=== PATIENT | male | born 1965 | race Caucasian/White ===

== ENCOUNTER 2020-03-30 16:45 | Outpatient (REF) | payer OTHER, SELFPAY ==
[2020-03-30 17:31] LABS: Influenza A PCR NEGATIVE (Negative); Influenza B PCR NEGATIVE (Negative); Resp Syncy Virus RNA Qual PCR NEGATIVE (Negative); SARS COV2 PCR INHOUSE NEGATIVE (Negative)
== END 2020-03-30 16:46 | disposition home or self-care (01) ==
LOC: HO.LNP 16:45
PROVIDERS: Visit Provider Nurse Practitioner Family
DX: Z20.828 Contact with and (suspected) exposure to other viral communicable diseases (principal); J06.9 Acute upper respiratory infection, unspecified
CPT/HCPCS: 0241U

== ENCOUNTER 2020-06-02 09:46 | Outpatient (REF) | payer OTHER, SELFPAY ==
[2020-06-02 11:50] LABS: Alanine Aminotransferase 20 U/L (0-40); Albumin Level 4.3 g/dL (3.5-5.0); Alkaline Phosphatase 76 U/L (39-117); Anion Gap 13 (12-20); Aspartate Amino Transferase 18 U/L (5-37); Bilirubin Total 1.8 mg/dL (0.0-1.0); Blood Urea Nitrogen 18 mg/dL (9-16); Carbon Dioxide 28 mmol/L (22-29); Chloride 103 mmol/L (96-108); Cholesterol 159 mg/dL; Estimated Glomerular Filt Rate > 60; Glucose Fasting 93 mg/dL (60-99); HDL Cholesterol 53 mg/dL; LDL Cholesterol Calculated 93 mg/dl; Potassium 4.2 mmol/L (3.3-5.1); Sodium 140 mmol/L (135-145); Total Protein 6.5 g/dL (6.5-8.0); Triglycerides 68 mg/dL
[2020-06-02 11:57] LABS: Prostate Specific Antigen Scr 2.87 ng/mL (<0.05-4.0); TSH reflex Free T4 1.08 uIU/mL (0.32-4.0)
== END 2020-06-02 09:47 | disposition home or self-care (01) ==
LOC: HO.HMGCLDS 09:46
PROVIDERS: PCP Nurse Practitioner Family; Visit Provider Nurse Practitioner Family
DX: Z00.00 Encounter for general adult medical examination without abnormal findings (principal); Z12.5 Encounter for screening for malignant neoplasm of prostate
CPT/HCPCS: 36415; 80053; 80061; 84153; 84443

== ENCOUNTER 2020-09-03 16:16 | Outpatient (REF) | payer OTHER, SELFPAY ==
--- NOTE | ~2020-09-03 | MR_ITS ---
EXAMINATION: MR SHOULDER WITHOUT CONTRAST, RIGHT CLINICAL INFORMATION: Right shoulder popped. No areas. Weakness. COMPARISON: None. TECHNIQUE: MRI of the shoulder without contrast was performed on a high-field scanner. FINDINGS: ROTATOR CUFF: Minimal subscapularis tendinosis at the insertion of the lesser tuberosity and supraspinatus tendinosis of the greater tuberosity insertion. No rotator cuff tears. No muscle atrophy or fatty infiltration. BICEPS: Normal. CORACOACROMIAL ARCH: The undersurface of the acromion is minimally curved with no subacromial spur. Mild acromioclavicular osteoarthritis. LABRUM/CAPSULE: Normal. GLENOHUMERAL JOINT/MARROW: There is a focal multilobular focus of near fluid signal intensity along the posterior cortex of the humeral head measuring 1.3 x 0.7 x 1.1 cm. This may correspond to a enchondroma or focus of subcortical cystic change. Overlying cortex is intact without appreciable scalloping. No aggressive features. No surrounding marrow edema signal. Bone marrow signal is otherwise normal. Articular cartilage is well preserved. MR/MR shoulder RT wo con IMPRESSION: 1. Minimal subscapularis and supraspinatus tendinosis. No tears. 2. A 1.3 cm subcortical lesion at the humeral head posteriorly which may correspond to a low-grade chondroid lesion or, alternatively, subcortical cystic change. There are no aggressive features and an enchondroma is favored. Bones are otherwise normal in appearance.
== END 2020-09-03 16:17 | disposition home or self-care (01) ==
LOC: HO.MRI 16:16
PROVIDERS: PCP Nurse Practitioner Family; Visit Provider Orthopaedic Surgery
DX: M75.41 Impingement syndrome of right shoulder (principal)
CPT/HCPCS: 73221

== ENCOUNTER 2021-01-10 13:55 | Outpatient (REF) | payer OTHER, SELFPAY | END 2021-01-10 13:56 | disposition home or self-care (01) | LOC: HO.LNP 13:55 | PROVIDERS: Visit Provider Physician Assistant | DX: Z20.822 Contact with and (suspected) exposure to COVID-19 (principal) | CPT/HCPCS: U0003; U0005 ==

== ENCOUNTER 2021-06-23 09:34 | Outpatient (REF) | payer OTHER, SELFPAY ==
[2021-06-23 12:13] LABS: Alanine Aminotransferase 18 U/L (0-40); Albumin Level 4.2 g/dL (3.5-5.0); Alkaline Phosphatase 60 U/L (39-117); Anion Gap 13 (12-20); Aspartate Amino Transferase 16 U/L (5-37); Bilirubin Total 1.5 mg/dL (0.0-1.0); Blood Urea Nitrogen 21 mg/dL (9-16); Calcium 9.3 mg/dL (8.4-10.2); Carbon Dioxide 25 mmol/L (22-29); Chloride 105 mmol/L (96-108); Cholesterol 155 mg/dL; Estimated Glomerular Filt Rate > 60; Glucose Fasting 96 mg/dL (60-99); HDL Cholesterol 52 mg/dL; LDL Cholesterol Calculated 90 mg/dl; Sodium 138 mmol/L (135-145); Total Protein 6.6 g/dL (6.5-8.0); Triglycerides 69 mg/dL
[2021-06-23 12:30] LABS: Prostate Specific Antigen Scr 4.53 ng/mL (<0.05-4.0)
[2021-06-23 13:47] LABS: Appearance Urine CLOUDY; Color Urine YELLOW; Glucose Urine UA NEG (NEG); Leukocyte Esterase Urine NEG (NEG); Nitrite Urine NEG (NEG); Specific Gravity - Urine 1.025 (1.005-1.025); Urine Blood NEG (NEG); Urine Ketones NEG (NEG); Urine Protein NEG (NEG-TRACE)
== END 2021-06-23 09:35 | disposition home or self-care (01) ==
LOC: HO.HMGCLDS 09:34
PROVIDERS: PCP Nurse Practitioner Family; Visit Provider Nurse Practitioner Family
DX: Z00.00 Encounter for general adult medical examination without abnormal findings (principal); Z12.5 Encounter for screening for malignant neoplasm of prostate
CPT/HCPCS: 36415; 80053; 80061; 81003; 84153; 84443

== ENCOUNTER → 2021-08-10 12:56 | Outpatient (BNVA) | payer OTHER, SELFPAY | PROVIDERS: PCP Nurse Practitioner Family; Visit Provider Urology | DX: Z13.89 Encounter for screening for other disorder (principal) ==

== ENCOUNTER 2021-08-11 14:04 | Outpatient (REF) | payer OTHER, SELFPAY ==
[2021-08-11 16:54] LABS: PSA,Total (Free>4and<10) 3.13 ng/mL (0.00-4.00)
== END 2021-08-11 14:05 | disposition home or self-care (01) ==
LOC: HO.HMGCLDS 14:04
PROVIDERS: PCP Nurse Practitioner Family; Visit Provider Urology
DX: N40.1 Benign prostatic hyperplasia with lower urinary tract symptoms (principal); N13.8 Other obstructive and reflux uropathy; R97.20 Elevated prostate specific antigen [PSA]; Z12.5 Encounter for screening for malignant neoplasm of prostate
CPT/HCPCS: 36415; 84153

== ENCOUNTER → 2021-08-25 08:19 | Outpatient (BNVA) | payer OTHER, SELFPAY | PROVIDERS: PCP Nurse Practitioner Family; Visit Provider Urology | DX: R97.20 Elevated prostate specific antigen [PSA] (principal) ==

== ENCOUNTER 2022-05-16 15:30 | Outpatient (REF) | payer OTHER, SELFPAY ==
[2022-05-16 16:21] LABS: Influenza A PCR NEGATIVE (Negative); Influenza B PCR NEGATIVE (Negative); Resp Syncy Virus RNA Qual PCR NEGATIVE (Negative); SARS COV2 PCR INHOUSE NEGATIVE (Negative)
== END 2022-05-16 15:31 | disposition home or self-care (01) ==
LOC: HO.LNP 15:30
PROVIDERS: Visit Provider Internal Medicine
DX: R09.89 Other specified symptoms and signs involving the circulatory and respiratory systems (principal); Z20.822 Contact with and (suspected) exposure to COVID-19
CPT/HCPCS: 0241U

== ENCOUNTER 2022-07-28 12:32 | Emergency (ER) | payer OTHER, SELFPAY ==
--- NOTE | ~2022-07-28 | CT_ITS ---
EXAMINATION: CT ANGIOGRAM OF THE CHEST WITH AND WITHOUT CONTRAST (CT PULMONARY ANGIOGRAM FOR PE) CLINICAL INFORMATION: Reason for Exam chest pain radiating into the back COMPARISON: None available. TECHNIQUE: Prior to contrast administration, noncontrast localization images were obtained. Subsequently, multidetector volumetric imaging was performed from the thoracic inlet to below the diaphragms following the administration of 65 mL Omnipaque 350 intravenous contrast. No contrast reaction reported Sagittal, coronal, and MIP oblique sagittal reformatted images were obtained on the CT workstation, uploaded to PACS, and reviewed. This CT examination was performed using dose optimization techniques as appropriate, variously including the following: *Automated exposure control *Adjustment of mA and/or kV according to patient size (this includes techniques or standardized protocols for targeted exams where dose is matched to indication/reason for exam; i.e. extremities or head) *Use of iterative reconstruction technique Total exam dose-length product 271 mGy-cm FINDINGS: QUALITY OF STUDY/CONTRAST BOLUS: Satisfactory. PULMONARY ARTERIES: No pulmonary emboli. THORACIC AORTA: No aneurysm. LUNG: No focal consolidation, nodules or masses. There is subsegmental atelectasis left anterior lung base. PLEURA: No pleural effusion or pneumothorax. MEDIASTINUM: Normal heart size. No pericardial effusion. No hilar or mediastinal lymphadenopathy. No evidence of septal bowing or right heart strain. CORONARY ARTERY CALCIFICATION: None visualized on this study. CHEST WALL/AXILLA: No axillary or internal mammary lymphadenopathy. OSSEOUS STRUCTURES: No acute or suspicious osseous abnormality. UPPER ABDOMEN: Question wall thickening of the stomach versus underdistention.. No reflux of contrast into the hepatic veins to suggest elevated right heart pressures. CT/CT angio chest PE protocol IMPRESSION: No evidence of pulmonary embolism. VTE: negative
--- NOTE | 2022-07-28 12:45 | ECG_ITS ---
Test Reason : CP Blood Pressure : / mmHG Vent. Rate : 077 BPM Atrial Rate : 077 BPM P-R Int : 176 ms QRS Dur : 144 ms QT Int : 418 ms P-R-T Axes : 049 084 008 degrees QTc Int : 473 ms Normal sinus rhythm Non-specific intra-ventricular conduction block Abnormal ECG When compared with ECG of 24-NOV-2010 17:35, QRS duration has increased QT has lengthened Referred By: Silvia Cunningham Electronically Signed By:LISA RAMIRES MD
[2022-07-28 13:11] VITALS: BP 169/95; PULSE 81; RESP 18; TEMP 36.9; O2SAT 98; BMI 28.5
--- NOTE | 2022-07-28 13:12 | ED_ITS ---
HPI - General Adult General Chief complaint: Chest Pain <ADRIANNA Marte - Last Filed: 07/28/22 13:13> Stated complaint: Chest pain sent by walk in <ADRIANNA Marte - Last Filed: 07/28/22 13:13> Time Seen by Provider: 07/28/22 13:22 <ADRIANNA Marte - Last Filed: 07/28/22 13:13> Source: patient <ADRIANNA Montelongo Last Filed: 07/28/22 17:06> Mode of arrival: ambulatory <ADRIANNA Montelongo - Last Filed: 07/28/22 17:06> Limitations: no limitations <ADRIANNA Montelongo Last Filed: 07/28/22 17:06> History of Present Illness HPI narrative: 57-year-old male with history of seasonal allergies, hyperlipidemia and mild intermittent asthma presents the ER from urgent care for evaluation of transient chest pressure and pain that occurred last night. Patient reports that around 230 in the morning he had an intense vice like chest pressure that radiated through to his back. He stood up to go to the bathroom, felt cool, clammy. He had no dizziness or shortness of breath at the time. The pain lasted about 1 minute and subsided. He was able to go back to sleep. He states he woke up this morning with an abnormal taste in his mouth. He went to the urgent care for evaluation but was sent here due to EKG changes. Patient has had no recurrent pain. No history of hypertension. He does have a significant family history of cardiac disease in family members in their 50s. <ADRIANNA Montelongo - Last Filed: 07/28/22 17:06> MD complaint: Transient chest pain <ADRIANNA Montelongo Last Filed: 07/28/22 17:06> Onset (ago): hour(s) <ADRIANNA Montelongo Last Filed: 07/28/22 17:06> Location: chest <ADRIANNA Montelongo Last Filed: 07/28/22 17:06> Radiation: back <ADRIANNA Montelongo Last Filed: 07/28/22 17:06> Severity: severe <ADRIANNA Montelongo Last Filed: 07/28/22 17:06> Severity scale (1-10): 10 <ADRIANNA Montelongo - Last Filed: 07/28/22 17:06> Quality: crushing <ADRIANNA Montelongo - Last Filed: 07/28/22 17:06> Pain Consistency: now resolved <ADRIANNA Montelongo - Last Filed: 07/28/22 17:06> Relieving factors: none <ADRIANNA Montelongo - Last Filed: 07/28/22 17:06> Exacerbating factors: none <ADRIANNA Montelongo - Last Filed: 07/28/22 17:06> Associated symptoms: denies other symptoms <ADRIANNA Montelongo - Last Filed: 07/28/22 17:06> Treatments prior to arrival: none <ADRIANNA Montelongo - Last Filed: 07/28/22 17:06> Related Data Home medications: Home Medications Medication Instructions Recorded Confirmed dupilumab 300 mg/2 mL subcutaneous mg subcut Q2W 05/19/20 07/28/22 syringe Previous Rx's Medication Instructions Recorded albuterol sulfate 90 mcg/actuation 2 puff PO Q4H PRN bronchospasm 30 05/23/21 aerosol inhaler days #8.5 grams guaifenesin 600 mg tablet, 600 mg PO BID #14 tabs 02/18/22 extended release 12 hr (Mucinex) azithromycin 250 mg tablet See Rx Instructions PO .COMPLEX 5 02/27/22 days #6 tabs prednisone 50 mg tablet 50 mg PO DAILY 5 days #5 tabs 02/27/22 atorvastatin 10 mg tablet 10 mg PO BEDTIME #90 tabs 03/01/22 sulfamethoxazole 800 1 tab PO BID 7 days #14 tabs 05/16/22 mg-trimethoprim 160 mg tablet (Bactrim DS) fluticasone propionate 50 1 spray intranasal DAILY #16 grams 06/26/22 mcg/actuation nasal spray,suspension omeprazole 20 mg capsule,delayed 20 mg PO DAILY 90 days #90 caps 06/28/22 release eszopiclone 3 mg tablet (Lunesta) 3 mg PO BEDTIME #30 tabs 07/19/22 ropinirole 2 mg tablet 2 mg PO BEDTIME 30 days #30 tabs 07/19/22 <ADRIANNA Marte - Last Filed: 07/28/22 13:13> Allergies/adverse reactions: Allergies Allergy/AdvReac Type Severity Reaction Status Date / Time acetaminophen [From TYLENOL] Allergy Unknown FEELS LIKE Verified 07/28/22 11:49 HE IS GOING TO JUMP OUT OF MY SKIN pollen Allergy Unknown asthma, Uncoded 07/28/22 11:49 sinus infection <ADRIANNA Marte - Last Filed: 07/28/22 13:13> Review of Systems Review of Systems: Yes all other systems are reviewed and are negative <ADRIANNA Montelongo - Last Filed: 07/28/22 17:06> [facility] Past Medical History Medical History: Medical History Dyslipidemia IBS (irritable bowel syndrome) Mild intermittent asthma in adult without complication Pruritic intertrigo Restless leg syndrome Sinusitis, acute <ADRIANNA Marte - Last Filed: 07/28/22 13:13> Surgical History: Surgical History History of inguinal hernia repair History of lipoma <ADRIANNA Marte - Last Filed: 07/28/22 13:13> Family History Family History: Family History Father Cancer of prostate Cancer of thyroid Mother Mitral valve prolapse Skin cancer Breast cancer SVT (supraventricular tachycardia) Sister Atrial septal aneurysm <ADRIANNA Marte - Last Filed: 07/28/22 13:13> Social History Social History: Social History Housing: House Alcohol intake: current Patient Tobacco Use Status: Never used Tobacco e-Cigarette/Vaping Use: Never Used Second Hand Smoke Exposure: No Advance Directives: Yes Advance Directives Information Provided: Yes Advance Directives on File: No service: No Current occupational status: employed Current occupation: [employer] Current occupational exposures/hazards: No <ADRIANNA Marte - Last Filed: 07/28/22 13:13> Physical Exam ED Vital Signs: Vital Signs - 24 hr 07/28/22 13:11 07/28/22 16:19 Temperature 98.4 F 98.5 F Pulse Rate 81 65 Respiratory Rate 18 20 Blood Pressure 169/95 H 129/77 Pulse Oximetry 98 98 Oxygen Delivery Method Room Air Room Air BMI result Body Mass Index 28.5 <ADRIANNA Marte Last Filed: 07/28/22 13:13> Vital Signs - 24 hr 07/28/22 13:11 07/28/22 16:19 Temperature 98.4 F 98.5 F Pulse Rate 81 65 Respiratory Rate 18 20 Blood Pressure 169/95 H 129/77 Pulse Oximetry 98 98 Oxygen Delivery Method Room Air Room Air BMI result Body Mass Index 28.5 <ADRIANNA Montelongo Last Filed: 07/28/22 17:06> Appearance: Alert. Oriented X3. No acute distress. Head: normocephalic, atraumatic. Eyes: Pupils equal, round and reactive to light. ENT: Pharynx normal. No tonsillar swelling or exudate. Neck: Normal inspection. Neck supple. CVS: Normal heart rate and rhythm. Pulses normal. Equal femoral pulses Respiratory: No respiratory distress. Breath sounds normal. Abdomen: Soft and nontender. +BS x4 Skin: Skin warm and dry. Normal skin color. Normal skin turgor. No rashes. Extremities: No lower extremity edema. No joint swelling. No calf tenderness or swelling Neuro/psych: Oriented X 3. No motor deficit. No sensory deficit. CN II-XII intact. Normal speech and cognition. <ADRIANNA Montelongo - Last Filed: 07/28/22 17:06> Course Course Course Narrative: RME performed by Silvia Cunningham PA-C. Patient is a 57 year old assigned male at presenting to the emergency department with chest pain. Patient states that last night he had an episode where he had a squeezing feeling in his chest that went into his back with diaphoresis. Patient states that the episode resolved. Labs and imaging ordered. Patient placed back in the waiting room pending room availability and results. <ADRIANNA Marte Last Filed: 07/28/22 13:13> Medications Administered Discontinued Medications Generic Name Dose Route Start Last Admin Trade Name Freq PRN Reason Stop Dose Admin Iohexol 65 ml 07/28/22 14:05 07/28/22 14:08 Iohexol 350 Mg/Ml 100 Ml Infus..Btl IV 07/28/22 14:06 65 ml ONCE ONE Administration <ADRIANNA Marte - Last Filed: 07/28/22 13:13> Medications Administered Discontinued Medications Generic Name Dose Route Start Last Admin Trade Name Liliana PRN Reason Stop Dose Admin Iohexol 65 ml 07/28/22 14:05 07/28/22 14:08 Iohexol 350 Mg/Ml 100 Ml Infus..Btl IV 07/28/22 14:06 65 ml ONCE ONE Administration <ADRIANNA Montelongo - Last Filed: 07/28/22 17:06> Medical Decision Making Medical Decision Making [facility] Narrative: 57-year-old male with hx HLD presents the ER for evaluation of transient, crushing chest pain that radiated to his back that occurred in the middle of the night, woken from sleep and self-resolved in 1 minute. Patient has been chest pain-free but he does have some EKG changes with a new interventricular block, QRS widening. No ST segment elevations or depressions. He remained chest pain- free in the emergency department. Troponin is negative x2. CTA is negative for PE or dissection. Patient may chest pain-free, hemodynamically stable. Heart score is low. He has a physical with his primary care doctor on Sunday. At this time is stable for discharge home, plan to follow-up with his PCP, Cardiology, return to the ER if new or worsening symptoms. Patient agrees with plan and stable for discharge home <ADRIANNA Montelongo - Last Filed: 07/28/22 17:06> Differential Diagnosis Differential Diagnoses: The differential diagnosis associated with the presentation includes <ADRIANNA Montelongo - Last Filed: 07/28/22 17:06> PE, aortic dissection, ACS, costochondritis, myocarditis, pericarditis, pneumonia, pneumothorax <ADRIANNA Montelongo Last Filed: 07/28/22 17:06> Consult Healthcare Provider Management of the patient was discussed with: Medical Records Auditor <ADRIANNA Montelongo - Last Filed: 07/28/22 17:06> Dr. Abdi <ADRIANNA Montelongo - Last Filed: 07/28/22 17:06> Lab Data [facility] Lab Attestation statement: I reviewed the patient's lab results. <ADRIANNA Montelongo - Last Filed: 07/28/22 17:06> Result Diagrams: 07/28/22 13:06 07/28/22 13:06 <ADRIANNA Marte - Last Filed: 07/28/22 13:13> Labs: Lab Results 07/28/22 07/28/22 07/28/22 Range/Units 13:06 13:06 13:06 WBC 4.8 (4.8-10.8) X10*3/uL RBC 4.77 (4.60-5.80) X10*6/uL Hgb 14.9 (14.0-18.0) g/dl Hct 43.6 (42.0-52.0) % MCV 91.4 (80.0-98.0) fL MCH 31.2 (27.0-33.0) pg MCHC 34.2 (31.0-36.0) g/dl RDW 12.5 (11.0-16.0) % Plt Count 234 (160-400) X10*3/uL MPV 10.5 (9.4-12.4) fL Immature Gran % (Auto) 0.2 (0.0-0.4) % Neut % (Auto) 67.5 (45-73) % Lymph % (Auto) 23.2 (20-40) % [place] % (Auto) 9.1 (2-11) % Eos % (Auto) 0.0 (0-4) % Baso % (Auto) 0.0 (0-2) % Lymph # (Auto) 1.1 L (1.2-4.9) X10*3/uL [place] # (Auto) 0.4 (0.1-1.2) X10*3/uL Eos # (Auto) 0.0 (0.0-0.4) X10*3/uL Baso # (Auto) 0.0 (0.0-0.2) X10*3/uL Abs Immat Gran (auto) 0.01 (0.00-0.03) X10*3/uL Absolute Neuts (auto) 3.3 (2.0-8.3) x10*3/uL Absolute Nucleated RBC 0.000 (0.0-0.012) X10*3/uL Nucleated RBC % (auto) 0.0 (0.0-0.2) /100WBC Sodium 143 (135-145) mmol/L Potassium 4.8 (3.3-5.1) mmol/L Chloride 107 (96-108) mmol/L Carbon Dioxide 28 (22-29) mmol/L Anion Gap 13 (12-20) BUN 22 H (9-16) mg/dL Creatinine 1.12 (0.5-1.4) mg/dL Estim Creat Clear Calc 95.1 Estimated GFR > 60 Random Glucose 120 H (60-115) mg/dL Calcium 9.3 (8.4-10.2) mg/dL Magnesium 1.9 (1.6-2.6) mg/dL Total Bilirubin 1.1 H (0.0-1.0) mg/dL AST 16 (5-37) U/L ALT 20 (0-40) U/L Alkaline Phosphatase 74 (39-117) U/L Troponin I High Sens < 2.7 (<3.5-35.0) ng/L B-Natriuretic Peptide (<100) pg/mL Total Protein 6.4 L (6.5-8.0) g/dL Albumin 4.3 (3.5-5.0) g/dL 07/28/22 07/28/22 Range/Units 13:06 15:42 WBC (4.8-10.8) X10*3/uL RBC (4.60-5.80) X10*6/uL Hgb (14.0-18.0) g/dl Hct (42.0-52.0) % MCV (80.0-98.0) fL MCH (27.0-33.0) pg MCHC (31.0-36.0) g/dl RDW (11.0-16.0) % Plt Count (160-400) X10*3/uL MPV (9.4-12.4) fL Immature Gran % (Auto) (0.0-0.4) % Neut % (Auto) (45-73) % Lymph % (Auto) (20-40) % [place] % (Auto) (2-11) % Eos % (Auto) (0-4) % Baso % (Auto) (0-2) % Lymph # (Auto) (1.2-4.9) X10*3/uL [place] # (Auto) (0.1-1.2) X10*3/uL Eos # (Auto) (0.0-0.4) X10*3/uL Baso # (Auto) (0.0-0.2) X10*3/uL Abs Immat Gran (auto) (0.00-0.03) X10*3/uL Absolute Neuts (auto) (2.0-8.3) x10*3/uL Absolute Nucleated RBC (0.0-0.012) X10*3/uL Nucleated RBC % (auto) (0.0-0.2) /100WBC Sodium (135-145) mmol/L Potassium (3.3-5.1) mmol/L Chloride (96-108) mmol/L Carbon Dioxide (22-29) mmol/L Anion Gap (12-20) BUN (9-16) mg/dL Creatinine (0.5-1.4) mg/dL Estim Creat Clear Calc Estimated GFR Random Glucose (60-115) mg/dL Calcium (8.4-10.2) mg/dL Magnesium (1.6-2.6) mg/dL Total Bilirubin (0.0-1.0) mg/dL AST (5-37) U/L ALT (0-40) U/L Alkaline Phosphatase (39-117) U/L Troponin I High Sens < 2.7 (<3.5-35.0) ng/L B-Natriuretic Peptide < 10 (<100) pg/mL Total Protein (6.5-8.0) g/dL Albumin (3.5-5.0) g/dL <ADRIANNA Marte - Last Filed: 07/28/22 13:13> Lab Results 07/28/22 07/28/22 07/28/22 Range/Units 13:06 13:06 13:06 WBC 4.8 (4.8-10.8) X10*3/uL RBC 4.77 (4.60-5.80) X10*6/uL Hgb 14.9 (14.0-18.0) g/dl Hct 43.6 (42.0-52.0) % MCV 91.4 (80.0-98.0) fL MCH 31.2 (27.0-33.0) pg MCHC 34.2 (31.0-36.0) g/dl RDW 12.5 (11.0-16.0) % Plt Count 234 (160-400) X10*3/uL MPV 10.5 (9.4-12.4) fL Immature Gran % (Auto) 0.2 (0.0-0.4) % Neut % (Auto) 67.5 (45-73) % Lymph % (Auto) 23.2 (20-40) % [place] % (Auto) 9.1 (2-11) % Eos % (Auto) 0.0 (0-4) % Baso % (Auto) 0.0 (0-2) % Lymph # (Auto) 1.1 L (1.2-4.9) X10*3/uL [place] # (Auto) 0.4 (0.1-1.2) X10*3/uL Eos # (Auto) 0.0 (0.0-0.4) X10*3/uL Baso # (Auto) 0.0 (0.0-0.2) X10*3/uL Abs Immat Gran (auto) 0.01 (0.00-0.03) X10*3/uL Absolute Neuts (auto) 3.3 (2.0-8.3) x10*3/uL Absolute Nucleated RBC 0.000 (0.0-0.012) X10*3/uL Nucleated RBC % (auto) 0.0 (0.0-0.2) /100WBC Sodium 143 (135-145) mmol/L Potassium 4.8 (3.3-5.1) mmol/L Chloride 107 (96-108) mmol/L Carbon Dioxide 28 (22-29) mmol/L Anion Gap 13 (12-20) BUN 22 H (9-16) mg/dL Creatinine 1.12 (0.5-1.4) mg/dL Estim Creat Clear Calc 95.1 Estimated GFR > 60 Random Glucose 120 H (60-115) mg/dL Calcium 9.3 (8.4-10.2) mg/dL Magnesium 1.9 (1.6-2.6) mg/dL Total Bilirubin 1.1 H (0.0-1.0) mg/dL AST 16 (5-37) U/L ALT 20 (0-40) U/L Alkaline Phosphatase 74 (39-117) U/L Troponin I High Sens < 2.7 (<3.5-35.0) ng/L B-Natriuretic Peptide (<100) pg/mL Total Protein 6.4 L (6.5-8.0) g/dL Albumin 4.3 (3.5-5.0) g/dL 07/28/22 07/28/22 Range/Units 13:06 15:42 WBC (4.8-10.8) X10*3/uL RBC (4.60-5.80) X10*6/uL Hgb (14.0-18.0) g/dl Hct (42.0-52.0) % MCV (80.0-98.0) fL MCH (27.0-33.0) pg MCHC (31.0-36.0) g/dl RDW (11.0-16.0) % Plt Count (160-400) X10*3/uL MPV (9.4-12.4) fL Immature Gran % (Auto) (0.0-0.4) % Neut % (Auto) (45-73) % Lymph % (Auto) (20-40) % [place] % (Auto) (2-11) % Eos % (Auto) (0-4) % Baso % (Auto) (0-2) % Lymph # (Auto) (1.2-4.9) X10*3/uL [place] # (Auto) (0.1-1.2) X10*3/uL Eos # (Auto) (0.0-0.4) X10*3/uL Baso # (Auto) (0.0-0.2) X10*3/uL Abs Immat Gran (auto) (0.00-0.03) X10*3/uL Absolute Neuts (auto) (2.0-8.3) x10*3/uL Absolute Nucleated RBC (0.0-0.012) X10*3/uL Nucleated RBC % (auto) (0.0-0.2) /100WBC Sodium (135-145) mmol/L Potassium (3.3-5.1) mmol/L Chloride (96-108) mmol/L Carbon Dioxide (22-29) mmol/L Anion Gap (12-20) BUN (9-16) mg/dL Creatinine (0.5-1.4) mg/dL Estim Creat Clear Calc Estimated GFR Random Glucose (60-115) mg/dL Calcium (8.4-10.2) mg/dL Magnesium (1.6-2.6) mg/dL Total Bilirubin (0.0-1.0) mg/dL AST (5-37) U/L ALT (0-40) U/L Alkaline Phosphatase (39-117) U/L Troponin I High Sens < 2.7 (<3.5-35.0) ng/L B-Natriuretic Peptide < 10 (<100) pg/mL Total Protein (6.5-8.0) g/dL Albumin (3.5-5.0) g/dL <ADRIANNA Montelongo - Last Filed: 07/28/22 17:06> Independent Interpretation I performed an independent interpretation of an: EKG and CT Scan <ADRIANNA Montelongo - Last Filed: 07/28/22 17:06> Interpretation: EKG with normal sinus rhythm, ventricular rate 77 beats per minute, new intraventricular conduction block, possible right bundle-branch block, QRS prolonged 144 MS, normal MA interval, no ST segment elevations or depressions. CTA with no PE or dissection <ADRIANNA Montelongo - Last Filed: 07/28/22 17:06> Radiology Impression Discussion of test interpretation with radiology: I have reviewed the radiologist's reading. <ADRIANNA Montelongo - Last Filed: 07/28/22 17:06> Radiologist Impression: EXAMINATION: CT ANGIOGRAM OF THE CHEST WITH AND WITHOUT CONTRAST (CT PULMONARY ANGIOGRAM FOR PE) CLINICAL INFORMATION: Reason for Exam chest pain radiating into the back COMPARISON: None available.? ? TECHNIQUE: Prior to contrast administration, noncontrast localization images were obtained. ? Subsequently, multidetector volumetric imaging was performed from the thoracic inlet to below the diaphragms following the administration of 65 mL Omnipaque 350 intravenous contrast. No contrast reaction reported Sagittal, coronal, and MIP oblique sagittal reformatted images were obtained on the CT workstation, uploaded to PACS, and reviewed. This CT examination was performed using dose optimization techniques as appropriate, variously including the following: *Automated exposure control *Adjustment of mA and/or kV according to patient size (this includes techniques or standardized protocols for targeted exams where dose is matched to indication/reason for exam; i.e. extremities or head) *Use of iterative reconstruction technique Total exam dose-length product 271 mGy-cm FINDINGS: QUALITY OF STUDY/CONTRAST BOLUS: Satisfactory. PULMONARY ARTERIES: No pulmonary emboli.? THORACIC AORTA: No aneurysm. LUNG: No focal consolidation, nodules or masses. There is subsegmental atelectasis left anterior lung base. PLEURA: No pleural effusion or pneumothorax. MEDIASTINUM: Normal heart size.? No pericardial effusion.? No hilar or mediastinal lymphadenopathy.? No evidence of septal bowing or right heart strain. CORONARY ARTERY CALCIFICATION: None visualized on this study. CHEST WALL/AXILLA: No axillary or internal mammary lymphadenopathy. OSSEOUS STRUCTURES: No acute or suspicious osseous abnormality.? UPPER ABDOMEN: Question wall thickening of the stomach versus underdistention..? No reflux of contrast into the hepatic veins to suggest elevated right heart pressures. CT/CT angio chest PE protocol IMPRESSION: No evidence of pulmonary embolism. <ADRIANNA Montelongo - Last Filed: 07/28/22 17:06> Independent Historian Clinical information obtained from an independent historian. History obtained from or confirmed by: Spouse <ADRIANNA Montelongo - Last Filed: 07/28/22 17:06> External Record Review External record reviewed: Office record, Outpatient record, Prior outpatient labs and Prior outpatient radiology <ADRIANNA Montelongo - Last Filed: 07/28/22 17:06> Chronic Conditions Patient?s care impacted by: Other (HLD) <ADRIANNA Montelongo Last Filed: 07/28/22 17:06> Scores Heart Score History: -0- slightly suspicious <ADRIANNA Montelongo Last Filed: 07/28/22 17:06> ECG: -0- normal <ADRIANNA Montelongo Last Filed: 07/28/22 17:06> Age: -1- >45 - <65 <ADRIANNA Montelongo Last Filed: 07/28/22 17:06> Risk factory: -1- 1 or 2 risk factors <ADRIANNA Montelongo Last Filed: 07/28/22 17:06> Troponin: -0- < or = normal limit <ADRIANNA Montelongo Last Filed: 07/28/22 17:06> Score: 2 <ADRIANNA Montelongo Last Filed: 07/28/22 17:06> Risk: 1.7% <ADRIANNA Montelongo - Last Filed: 07/28/22 17:06> Critical Care Time Critical Care Time Critical Care Time: No <ADRIANNA Montelongo - Last Filed: 07/28/22 17:06> Discharge Plan Discharge Clinical Impression: Chest pain <ADRIANNA Marte - Last Filed: 07/28/22 13:13> Patient Disposition: Home, Self-Care <ADRIANNA Marte Last Filed: 07/28/22 13:13> Instructions: Chest Pain (DC) <ADRIANNA Marte Last Filed: 07/28/22 13:13> Additional Instructions: Your lab workup today was unremarkable. Your CTA did not show any evidence or blood clot or aortic dissection. Recommend following up with Cardiology, name and number below. If you develop new or worsening symptoms call 911 or come back to the ER for further evaluation. <ADRIANNA Marte - Last Filed: 07/28/22 13:13> Prescriptions: No Action azithromycin 250 mg tablet See Rx Instructions PO .COMPLEX 5 Days Qty: 6 0RF Rx Instructions: For 250 mg dose pack: take 500 mg today (day 1), then 250 mg for 4 days (days 2-5) PO prednisone 50 mg tablet 50 mg PO DAILY 5 Days Qty: 5 0RF atorvastatin 10 mg tablet 10 mg PO BEDTIME Qty: 90 1RF fluticasone propionate 50 mcg/actuation spray,suspension 1 spray intranasal DAILY Qty: 16 4RF omeprazole 20 mg capsule,delayed release(DR/EC) 20 mg PO DAILY 90 Days Qty: 90 1RF ropinirole 2 mg tablet 2 mg PO BEDTIME 30 Days Qty: 30 1RF eszopiclone [Lunesta] 3 mg tablet 3 mg PO BEDTIME Qty: 30 0RF albuterol sulfate 90 mcg/actuation HFA aerosol inhaler 2 puff PO Q4H PRN (Reason: bronchospasm) 30 Days Qty: 8.5 4RF dupilumab 300 mg/2 mL syringe subcut Q2W guaifenesin [Mucinex] 600 mg tablet extended release 12hr 600 mg PO BID Qty: 14 0RF sulfamethoxazole-trimethoprim [Bactrim DS] 800-160 mg tablet 1 tab PO BID 7 Days Qty: 14 0RF <ADRIANNA Marte - Last Filed: 07/28/22 13:13> Referrals: [facility] [place] [facility] [Provider Group] (chest pain, ER visit) Adrian Kamara, EXERCISE EQUIPMENT REPAIR TECHNICIAN-BC [Primary Care Provider] - <ADRIANNA Marte - Last Filed: 07/28/22 13:13>
[2022-07-28 13:21] LABS: MANUAL DIFF FLAG NO
[2022-07-28 13:22] LABS: Hematocrit 43.6 % (42.0-52.0); Hemoglobin 14.9 g/dl (14.0-18.0); Imm Gran Abs Auto 0.01 X10*3/uL (0.00-0.03); Imm Gran Pct Auto 0.2 % (0.0-0.4); Lymphocytes Absolute Auto 1.1 X10*3/uL (1.2-4.9); Lymphocytes Percent Auto 23.2 % (20-40); Mean Corpuscular HGB Conc 34.2 g/dl (31.0-36.0); Mean Corpuscular Hemoglobin 31.2 pg (27.0-33.0); Mean Corpuscular Volume 91.4 fL (80.0-98.0); Mean Platelet Volume 10.5 fL (9.4-12.4); Monocytes Absolute Auto 0.4 X10*3/uL (0.1-1.2); Monocytes Percent Auto 9.1 % (2-11); Neutrophils Absolute Auto 3.3 x10*3/uL (2.0-8.3); Neutrophils Percent Auto 67.5 % (45-73); Platelet Count 234 X10*3/uL (160-400); Red Blood Count 4.77 X10*6/uL (4.60-5.80); Red Cell Distribution Width 12.5 % (11.0-16.0); White Blood Count 4.8 X10*3/uL (4.8-10.8)
[2022-07-28 13:42] LABS: Alanine Aminotransferase 20 U/L (0-40); Albumin Level 4.3 g/dL (3.5-5.0); Alkaline Phosphatase 74 U/L (39-117); Anion Gap 13 (12-20); Aspartate Amino Transferase 16 U/L (5-37); B Type Natriuretic Peptide < 10 pg/mL (<100); Bilirubin Total 1.1 mg/dL (0.0-1.0); Blood Urea Nitrogen 22 mg/dL (9-16); Calcium 9.3 mg/dL (8.4-10.2); Carbon Dioxide 28 mmol/L (22-29); Chloride 107 mmol/L (96-108); Creatinine Clr Calc Pharmacy 95.1; Estimated Glomerular Filt Rate > 60; Glucose Random 120 mg/dL (60-115); Magnesium 1.9 mg/dL (1.6-2.6); Potassium 4.8 mmol/L (3.3-5.1); Sodium 143 mmol/L (135-145); Total Protein 6.4 g/dL (6.5-8.0)
[2022-07-28 13:53] LABS: Troponin-I High Sensitivity < 2.7 ng/L (<3.5-35.0)
[2022-07-28] MEDS: iohexoL 350 MG/ML 100 ML INFUS..BTL 65 ML IV (14:08)
[2022-07-28 16:14] LABS: Troponin-I High Sensitivity < 2.7 ng/L (<3.5-35.0)
[2022-07-28 16:19] VITALS: BP 129/77; PULSE 65; RESP 20; TEMP 36.9; O2SAT 98
== END 2022-07-28 17:20 | disposition home or self-care (01) ==
PROVIDERS: Physician Assistant; Physician Assistant Medical; Emergency Provider Emergency Medicine; PCP Nurse Practitioner Family
DX: R07.9 Chest pain, unspecified (principal); E78.5 Hyperlipidemia, unspecified; Z79.02 Long term (current) use of antithrombotics/antiplatelets; Z79.899 Other long term (current) drug therapy
CPT/HCPCS: 36415; 71275; 80053; 83735; 83880; 84484; 85025; 93005; 99284; Q9967

== ENCOUNTER 2022-08-01 09:58 | Outpatient (REF) | payer OTHER, SELFPAY ==
[2022-08-01 11:03] LABS: Appearance Urine Clear; Color Urine Yellow; Glucose Urine UA Negative (Negative); Leukocyte Esterase Urine Negative (Negative); Nitrite Urine Negative (Negative); PH 5.5 (5.0-9.0); Specific Gravity - Urine 1.025 (1.005-1.025); Urine Blood Negative (Negative); Urine Ketones Negative (Negative); Urine Protein Negative (Neg-Trace)
[2022-08-01 11:11] LABS: MANUAL DIFF FLAG NO
[2022-08-01 11:38] LABS: Hematocrit 44.1 % (42.0-52.0); Imm Gran Abs Auto 0.02 X10*3/uL (0.00-0.03); Imm Gran Pct Auto 0.4 % (0.0-0.4); Lymphocytes Absolute Auto 1.3 X10*3/uL (1.2-4.9); Lymphocytes Percent Auto 28.5 % (20-40); Mean Corpuscular Hemoglobin 31.5 pg (27.0-33.0); Mean Corpuscular Volume 92.6 fL (80.0-98.0); Mean Platelet Volume 10.9 fL (9.4-12.4); Monocytes Absolute Auto 0.5 X10*3/uL (0.1-1.2); Monocytes Percent Auto 10.6 % (2-11); Neutrophils Absolute Auto 2.8 x10*3/uL (2.0-8.3); Neutrophils Percent Auto 60.5 % (45-73); Platelet Count 245 X10*3/uL (160-400); Red Blood Count 4.76 X10*6/uL (4.60-5.80); Red Cell Distribution Width 12.2 % (11.0-16.0); White Blood Count 4.6 X10*3/uL (4.8-10.8)
[2022-08-01 12:32] LABS: Alanine Aminotransferase 24 U/L (0-40); Albumin Level 4.2 g/dL (3.5-5.0); Alkaline Phosphatase 69 U/L (39-117); Anion Gap 13 (12-20); Aspartate Amino Transferase 17 U/L (5-37); Bilirubin Total 1.4 mg/dL (0.0-1.0); Blood Urea Nitrogen 17 mg/dL (9-16); Calcium 9.3 mg/dL (8.4-10.2); Carbon Dioxide 28 mmol/L (22-29); Chloride 104 mmol/L (96-108); Cholesterol 187 mg/dL; Estimated Glomerular Filt Rate > 60; Glucose Fasting 100 mg/dL (60-99); HDL Cholesterol 52 mg/dL; LDL Cholesterol Calculated 105 mg/dl; Potassium 4.9 mmol/L (3.3-5.1); Sodium 140 mmol/L (135-145); Total Protein 6.2 g/dL (6.5-8.0); Triglycerides 151 mg/dL
[2022-08-01 12:46] LABS: TSH reflex Free T4 2.76 uIU/mL (0.32-4.0)
== END 2022-08-01 09:59 | disposition home or self-care (01) ==
LOC: HO.HMGCLDS 09:58
PROVIDERS: PCP Nurse Practitioner Family; Visit Provider Nurse Practitioner Family
DX: Z00.00 Encounter for general adult medical examination without abnormal findings (principal); E78.5 Hyperlipidemia, unspecified
CPT/HCPCS: 36415; 80053; 80061; 81003; 84443; 85025

== ENCOUNTER → 2022-08-02 12:52 | Outpatient (BNVA) | payer OTHER, SELFPAY | PROVIDERS: PCP Nurse Practitioner Family; Visit Provider Internal Medicine Cardiovascular Disease | DX: Z13.89 Encounter for screening for other disorder (principal) ==

== ENCOUNTER 2022-08-04 11:30 | Outpatient (REF) | payer OTHER, SELFPAY ==
[2022-08-04 14:23] LABS: PSA,Total (Free>4and<10) 2.87 ng/mL (0.00-4.00)
== END 2022-08-04 11:31 | disposition home or self-care (01) ==
LOC: HO.HMGCLDS 11:30
PROVIDERS: PCP Nurse Practitioner Family; Visit Provider Urology
DX: Z12.5 Encounter for screening for malignant neoplasm of prostate (principal); R97.20 Elevated prostate specific antigen [PSA]
CPT/HCPCS: 36415; 84153

== ENCOUNTER → 2022-08-29 08:53 | Outpatient (REF) | payer OTHER, SELFPAY ==
--- NOTE | ~2022-08-29 | NM_ITS ---
EXERCISE MYOCARDIAL PERFUSION STUDY INDICATION: Chest pain, assess for coronary disease and ischemia TECHNIQUE: The patient was brought in for an exercise perfusion study on 08/29/2022. Patient performed exercise as per Thomas protocol and was injected 40 mCi of sestamibi once target heart rate was achieved. Images were obtained using the SPECT gamma camera interlaced with the gating device. Images were obtained in supine position. Resting perfusion study was performed on 08/31/2022. Patient was administered 40 mCi of sestamibi intravenously at rest. Images were then obtained in supine position. Images were processed with the software and compared side to side in short axis, horizontal long axis and vertical long axis views. Total DLP 143mGy-cm. FINDINGS: Raw images were reviewed. The stress perfusion study showed no significant perfusion abnormality. Both uncorrected as well as CT attenuation corrected images were reviewed. The gated study shows normal LV systolic function with calculated LVEF of 67%. LV cavity is normal in size. The gated study shows normal wall thickening and contraction of segments. Resting study shows no significant perfusion abnormality. Gating at rest reveals normal wall motion with ejection fraction at 63%. The findings are consistent with no clear reversible or fixed perfusion abnormality. NM/NM cardiolite stress test IMPRESSION: 1. Myocardial perfusion imaging study shows probably normal myocardial perfusion. No clear evidence of any ischemia or infarction. 2. Gated LVEF is 67% during stress and 63% during rest. 3. Transient ischemic dilatation not present. EKG component of the test reported separately.
--- NOTE | 2022-08-29 08:56 | CA_ITS ---
Acquisition Time: 2022-08-29 10:27:38 Total Exercise Time: 00:07:10 Test Indications: AND EKG, RBBB, CP Medications: SEE H Protocol: BRENDA Max HR: 142 BPM 88% of Pred: 161 BPM Max BP: 166/070 mmHG Max Work Load: 8.8 METS Exercise stress test with exercise 7 min 10 sec of brenda protocol, achieving 88% MPHR, without anginal symptoms, with isolated PVCs, with normotensive response to exercise, with artifact during exercise, without EKG changes meeting criteria for ischemia in recovery. Nuclear images pending. Test reviewed with Dr Foreman Referred By: Karl Abdi Overread By: SHILPA ROBLES
--- NOTE | 2022-08-29 08:56 | CA_ITS ---
Transthoracic Echocardiogram Patient (Last, First, Middle): Mitchell Villagomez E Gender: Male Date of : 1965 Age: 57 Procedure Date: 08/29/2022 Procedure Type: Transthoracic Echocardiogram Location: OP Height: 193.04 cm Weight: 108.86 kg BSA: 2.39 m2 Heart Rate: 68 bpm BP: 130 / 70 mmHg Community Facilitator: KESHIA Referring MD: Karl Abdi MD Symptoms: R07.89 - Other chest pain Study Quality: Adequate ECG Rhythm: Sinus Conclusions: - The left ventricular systolic function is normal. The calculated ejection fraction is 60% by biplane method. - No obvious valvular pathology seen on this study. Findings Left Ventricle Normal left ventricular cavity size. There is mildly increased left ventricular wall thickness. The left ventricular systolic function is normal. The calculated ejection fraction is 60% by biplane method. There is no evidence of regional wall motion abnormalities. Diastolic function is normal for age. LV peak GLS -18.9%. Right Ventricle Normal right ventricular cavity size and systolic function. Atria Both atria are normal in size. Aortic Valve There is a normal trileaflet aortic valve. There is no aortic valve stenosis. There is no aortic valve regurgitation. Mitral Valve The mitral valve appears normal. There is trace mitral valve regurgitation. There is no mitral valve stenosis. Pulmonic Valve The pulmonic valve is likely normal. Tricuspid Valve There is trace tricuspid valve regurgitation. There is no evidence of pulmonary hypertension. Great Vessels The asc aorta is normal in size. Venous The inferior vena cava is normal in size and collapses greater than 50% with inspiration. Pericardium/Pleural There is no evidence of pericardial effusion. Prior Study Comparison No prior study available for comparison. Recommendations, Care & Conclusions No obvious valvular pathology seen on this study. Measurements 2D Linear Measurements IVSd: 1.14 0.6-0.9/0.6-1.0 cm LVIDd: 4.24 3.9-5.3/4.2-5.9 cm LVIDd Index: 1.77 2.4-3.2/2.2-3.1 cm/m2 LVIDs: 2.84 2.0-3.6 cm LVPWd: 1.12 0.7-1.1 cm LA Diam: 3.30 2.7-3.8/3.0-4.0 cm LAIDs Index: 1.38 1.5-2.3 cm/m2 LV Mass: 206.34 67-162/88-224 g LV Mass Index: 86.33 43-95/49-115 g/m2 LVOT Diam: 2.10 3.0+(-)1.3 cm 2D Systolic Function EF 4C: 63.80 >55% EF 2C: 60.70 >55% EF BiP: 60.10 >55% Mitral Valve MV Pk E: 0.65 MV PK A: 0.53 MV Decel Time: 220.00 E/A: 1.20 E'Lateral: 9.14 E'Medial: 6.96 E/E' Med: 9.40 E/E' Lat: 7.10 PHT: 65.00 MVA PHT: 3.38 Decel [place]: 2.96 Aortic Valve AoV Pk Min: 1.25 AoV Mn Min: 0.93 AoV VTI: 0.28 AoV Pk Grad: 6.00 Aov Mn Grad: 4.00 ISSAC Cont.VTI: 3.21 LVOT LVOT Pk Min: 1.21 LVOT Mn Min: 0.91 LVOT VTI: 0.26 LVOT Pk Grad: 6.00 LVOT Mn Grad: 4.00 LVOT Diam: 2.10 LVOT Area: 3.46 Diastolic Function MV Pk E: 0.65 MV Pk A: 0.53 E/A: 1.20 E'Medial: 6.96 E/E' Med: 9.40 E' Laterial: 9.14 E/E' Lat: 7.10 Right Ventricle TAPSE (mm): 22.80 TVS' Min: 13.10 Tricuspid Valve TR Pk Min: 1.67 TR Pk Grad: 11.00 RA Press: 3.00 RVSP: 14.00 Great Vessels Aorta Sinus of Valsalva: 4.06 2.0-3.[address] [place]: 2.75 1.7-3.4 cm Ao Asc: 3.30 2.1-3.4 cm Updated in Other Vendor System with Status of Final Ant Petty MD electronically signed on 08/30/2022 10:57:14 AM with status of Final
== END ==
LOC: HO.CARD 08:53
PROVIDERS: PCP Nurse Practitioner Family; Visit Provider Internal Medicine Cardiovascular Disease
DX: R07.89 Other chest pain (principal); I45.10 Unspecified right bundle-branch block
CPT/HCPCS: 78452; 93017; 93306; 93356; A9500

== ENCOUNTER → 2022-09-06 10:14 | Outpatient (BNVA) | payer OTHER, SELFPAY | PROVIDERS: PCP Nurse Practitioner Family; Referring Provider Nurse Practitioner Family; Visit Provider Internal Medicine Cardiovascular Disease ==

== ENCOUNTER → 2022-10-02 14:29 | Outpatient (BNVA) | payer OTHER, SELFPAY | PROVIDERS: PCP Nurse Practitioner Family; Visit Provider Physician Assistant ==

== ENCOUNTER 2023-02-15 09:36 | Outpatient (AMB) | payer OTHER, SELFPAY ==
--- NOTE | 2023-02-15 09:38 | MHC.PC.OV ---
Vital Signs 02/15/23 09:41 Height 6 ft 4 in Weight 249 lb BMI 30.3 BP 122/74 Blood Pressure Location Lt brachial Position Sitting Pulse 79 Pulse Source Pulse Oximeter Pulse Oximetry (%) 98 Oxygen Delivery Method Room Air Intake Visit Reasons: 6m follow up Allergies acetaminophen [From TYLENOL] Allergy (Unknown, Verified 02/15/23 09:42) FEELS LIKE HE IS GOING TO JUMP OUT OF MY SKIN pollen Allergy (Unknown, Uncoded 02/15/23 09:42) asthma, sinus infection Medication List - Last Reconciled 02/15/23 by CARMNE Sewell albuterol sulfate 90 mcg/actuation 2 puffs PO Q4H PRN 30 days atorvastatin 40 mg PO BEDTIME bisacodyl (Dulcolax (bisacodyl)) 20 mg (4 x 5 mg) PO ONCE 1 day dupilumab mg subcut Q2W eszopiclone (Lunesta) 3 mg PO BEDTIME fluticasone propionate 50 mcg/actuation 1 spray intranasal DAILY omeprazole 20 mg PO DAILY 30 days polyethylene glycol 3350 (Miralax) 238 grams PO ONCE 1 day ropinirole 2 mg PO BEDTIME Tobacco use date assessed: 07/31/22 Dental Screening Dental Screen Date: 02/15/23 Did you have a dental visit in the last 12 months?: Yes Did you have a dental problem in the last 6 months where you did not have access to dental care?: No Was dental information given to patient?: Patient has dentist HPI 6m follow up HPI Details Dyslipidemia: On atorvastatin 40mg. Pt is following up with cardiology and repeat labs have been ordered by them. Denies chest pain, shortness of breath, headache, dizziness, and blurred vision. Pt c/o tinnitus and hearing loss. Will refer to speech/hearing. PFSH Medical History Sinusitis, acute Pruritic intertrigo Restless leg syndrome IBS (irritable bowel syndrome) Dyslipidemia Mild intermittent asthma in adult without complication Surgical History Hx of colonoscopy History of lipoma History of inguinal hernia repair Family History Father Cancer of prostate Cancer of thyroid Mother Mitral valve prolapse Skin cancer Breast cancer SVT (supraventricular tachycardia) Sister Atrial septal aneurysm Social History Housing: House Alcohol intake: current Patient Tobacco Use Status: Never used Tobacco e-Cigarette/Vaping Use: Never Used Second Hand Smoke Exposure: No service: No Current occupational status: employed Current occupation: [employer] Current occupational exposures/hazards: No Cognitive needs: No Hearing needs: No Vision needs: No Questionnaire Thrive Questionnaire Date Thrive assessed: 05/23/21 AUDIT C Alcohol Use Questionnaire (AUDIT-C) 1. How often do you have a drink containing alcohol?: 2-3 times a week 2. How many drinks containing alcohol do you have on a typical day when you are drinking?: 1 or 2 3. How often do you have six or more drinks on one occasion?: Never Total Score: 3 Score Reviewed/Action Taken: No OSCAR-7 AMB Questionnaire OSCAR-7 Date OSCAR - 7 assessed: 05/23/21 Source: Developed by Drs. Moises Schneider, Rajni Cadena, Brian Mcmillan and colleagues, with an educational yee from [employer]. Review of Systems Const Reports as per HPI Physical exam (Primary Care) Vital Signs: Last Vital Signs Pulse 79 02/15/23 09:41 BP 122/74 02/15/23 09:41 Pulse Ox 98 02/15/23 09:41 Oxygen Delivery Method Room Air 02/15/23 09:41 BMI result Body Mass Index 30.3 Tobacco/Smoking Status: Tobacco use Status Tobacco use date assessed 07/31/22 02/15/23 09:42 Patient Tobacco Use Status Never used Tobacco 02/15/23 09:42 e-Cigarette/Vaping Use Never Used 02/15/23 09:42 Thrive Assessment: Date of Thrive Assessment Date Thrive assessed 05/23/21 02/15/23 09:42 Const General: cooperative Orientation/consciousness: patient oriented x3 Resp Effort & Inspection: normal respiratory effort Auscultation: clear to auscultation bilaterally Cardio Rate: regular rate Rhythm: regular rhythm Heart sounds: S1 normal heart sound present and S2 normal heart sound present Neuro General: patient oriented x3 Psych Appearance: grossly normal Mental Status: mental status grossly normal Speech and movement: Normal speech and movement present Affect: normal affect Attitude: cooperative Thought process: Normal thought process present Thought content: Normal thought content present Insight: Good insight present (Psych) Judgement: Good judgement present (Psych) Office Procedures Flu Questionnaire Does the patient have a severe egg allergy?: No Does the patient have severe life threatening allergies?: No Does the patient have a fever or illness today?: No Has the patient ever had Guillain-Avenel Syndrome?: No Has the patient ever had any past reaction to a flu shot?: No Immunizations flu vacc [id number] 6mos up(PF) 60 mcg(15 mcgx4)/0.5 mL IM syringe Performing Provider: CARMEN Sewell [facility] Administered by: Ever Mcdonald CMA on 02/15/23 10:14 Dose Route Admin Location Dispensed Lot Number Expiration Date NDC Executive Chef Assistant 0.5 mL IM Left Deltoid 0.5 mL [id number] 10/14/23 48908-707-65 Remotium VIS Given Date VIS Provided VIS Publication Date 02/15/23 Single Vaccine 20 Eligibility Eligibility Date Funding Source Not [facility] Eligible 02/15/23 Private Assessment and Plan Assessment & Plan (1) Tinnitus: Code(s): H93.19 - Tinnitus, unspecified ear (2) Loss of hearing: Code(s): H91.90 - Unspecified hearing loss, unspecified ear (3) Dyslipidemia: Code(s): E78.5 - Hyperlipidemia, unspecified Plan The patient agreed to the use of a biomedical equipment support specialist for this encounter. Scribed for CARMEN Martell by mohan Nugent scribe, on 02/15/2023 at 09:50 EST. Orders: Orders Influenza [id number] Immunization Today Z23 - Encounter for immunization Referrals Speech and Hearing Referral H91.90 - Unspecified hearing loss, unspecified ear, H93.19 - Tinnitus, unspecified ear Coding Level of Care Code Est Pt Level 3 (83259) Diagnoses Tinnitus H93.19 Loss of hearing H91.90 Dyslipidemia E78.5
[2023-02-15 09:41] VITALS: BP 122/74; PULSE 79; O2SAT 98; BMI 30.3
== END 2023-02-15 10:43 | disposition home or self-care (01) ==
PROVIDERS: Visit Provider Nurse Practitioner Family
DX: H93.19 Tinnitus, unspecified ear (principal); H91.90 Unspecified hearing loss, unspecified ear; E78.5 Hyperlipidemia, unspecified; Z23 Encounter for immunization
CPT/HCPCS: 90471; 90686; 99213

== ENCOUNTER 2023-02-19 10:02 | Outpatient (REF) | payer OTHER, SELFPAY ==
[2023-02-19 13:37] LABS: Cholesterol 158 mg/dL (<200); HDL Cholesterol 54 mg/dL (>40); LDL Cholesterol Calculated 92 mg/dL (<100); Triglycerides 61 mg/dL (<150)
== END 2023-02-19 10:03 | disposition home or self-care (01) ==
LOC: HO.HMGCLDS 10:02
PROVIDERS: PCP Nurse Practitioner Family; Visit Provider Internal Medicine Cardiovascular Disease
DX: E78.5 Hyperlipidemia, unspecified (principal)
CPT/HCPCS: 36415; 80061

== ENCOUNTER 2023-03-13 08:16 | Outpatient (AMB) | payer OTHER, SELFPAY ==
--- NOTE | 2023-03-13 08:28 | MHC.OFFWIV ---
Intake Vital Signs 03/13/23 08:41 Height 6 ft 4 in Weight 249 lb BMI 30.3 BP 122/74 Blood Pressure Location Rt brachial Position Sitting Pulse 78 Pulse Source Pulse Oximeter Temp 97.8 F Temp Source Temporal Artery Scan Pulse Oximetry (%) 98 Intake Visit Reasons: EP ?Sinus Infection Intake Note: pt is here for c/o possible sinus infection Patient Tobacco Use Status: Never used Tobacco Allergies acetaminophen [From TYLENOL] Allergy (Unknown, Verified 03/13/23 09:04) FEELS LIKE HE IS GOING TO JUMP OUT OF MY SKIN pollen Allergy (Unknown, Uncoded 03/13/23 09:04) asthma, sinus infection Medication List - Last Reconciled 03/13/23 by Mathieu Jaramillo MD albuterol sulfate 90 mcg/actuation 2 puffs PO Q4H PRN 30 days atorvastatin 80 mg PO BEDTIME bisacodyl (Dulcolax (bisacodyl)) 20 mg (4 x 5 mg) PO ONCE 1 day dupilumab mg subcut Q2W eszopiclone (Lunesta) 3 mg PO BEDTIME 90 days fluticasone propionate 50 mcg/actuation 1 spray intranasal DAILY omeprazole 20 mg PO DAILY 30 days polyethylene glycol 3350 (Miralax) 238 grams PO ONCE 1 day ropinirole 2 mg PO BEDTIME Do you need a note to return to daycare/school/sports/work: Yes HPI EP ?Sinus Infection HPI Details Patient presents for a sick visit. Reporting symptoms of sinus congestion, sore throat and difficulty swallowing. Low-grade fever. No family member is sick. No recent travel. Patient reports symptoms of malaise and fatigue. PFSH Medical History Sinusitis, acute Pruritic intertrigo Restless leg syndrome IBS (irritable bowel syndrome) Dyslipidemia Mild intermittent asthma in adult without complication Surgical History Hx of colonoscopy History of lipoma History of inguinal hernia repair Family History Father Cancer of prostate Cancer of thyroid Mother Mitral valve prolapse Skin cancer Breast cancer SVT (supraventricular tachycardia) Sister Atrial septal aneurysm Housing: House Alcohol intake: current Patient Tobacco Use Status: Never used Tobacco e-Cigarette/Vaping Use: Never Used Second Hand Smoke Exposure: No service: No Current occupational status: employed Current occupation: [employer] Current occupational exposures/hazards: No Cognitive needs: No Hearing needs: No Vision needs: No Physical Exam Vital Signs: Last Vital Signs Temp 97.8 F 03/13/23 08:41 Pulse 78 03/13/23 08:41 BP 122/74 03/13/23 08:41 Pulse Ox 98 03/13/23 08:41 BMI result Body Mass Index 30.3 Const General: cooperative and healthy appearing Nutritional Appearance: well nourished Orientation/consciousness: patient oriented x3 Limitations: no limitations HEENT Head: Yes normal to inspection Eyes General: appearance normal, both eyes and all related structures Neck Neck: Yes normal visual inspection Chest Chest palpation & inspection: normal palpation of entire chest wall Resp Effort & Inspection: normal respiratory effort Neuro General: patient oriented x3 Assessment & Plan Assessment & Plan (1) URI (upper respiratory infection): Code(s): J06.9 - Acute upper respiratory infection, unspecified Qualifiers: URI type: unspecified URI Qualified Code(s): J06.9 - Acute upper respiratory infection, unspecified Plan: Antibiotics ordered. Increase fluid intake. Tylenol for aches and pains. If symptoms worsen, follow-up here for a recheck. Coding Level of Care Code Est Pt Level 3 (84414) Diagnoses Upper respiratory tract infection, unspecified type J06.9 URI type: unspecified URI
[2023-03-13 08:41] VITALS: BP 122/74; PULSE 78; TEMP 36.6; O2SAT 98; BMI 30.3
== END 2023-03-13 09:18 | disposition home or self-care (01) ==
PROVIDERS: PCP Nurse Practitioner Family; Visit Provider Internal Medicine
DX: J06.9 Acute upper respiratory infection, unspecified (principal)
CPT/HCPCS: 99213

== ENCOUNTER 2023-04-19 10:21 | Outpatient (REF) | payer OTHER, SELFPAY | END 2023-04-19 10:22 | disposition home or self-care (01) | LOC: HO.SH 10:21 | PROVIDERS: Visit Provider Nurse Practitioner Family | DX: Z01.118 Encounter for examination of ears and hearing with other abnormal findings (principal); H93.11 Tinnitus, right ear | CPT/HCPCS: 92557; 92567 ==

== ENCOUNTER 2023-04-24 09:13 | Outpatient (AMB) | payer OTHER, SELFPAY ==
[2023-04-24 10:32] VITALS: BP 122/70; PULSE 68; TEMP 36.6; O2SAT 97; BMI 29.7
--- NOTE | 2023-04-24 10:32 | MHC.OFFWIV ---
Intake Vital Signs 04/24/23 10:32 Height 6 ft 4 in Weight 244 lb BMI 29.7 BP 122/70 Blood Pressure Location Lt brachial Position Sitting Pulse 68 Pulse Source Pulse Oximeter Temp 97.9 F Temp Source Oral Pulse Oximetry (%) 97 Oxygen Delivery Method Room Air Intake Visit Reasons: EP ?UTI Lobby Intake Note: Patient is here with UTI symptoms for 4 days. He had an antibiotic, and used AZO. Patient Tobacco Use Status: Never used Tobacco Allergies acetaminophen [From TYLENOL] Allergy (Unknown, Verified 04/24/23 10:34) FEELS LIKE HE IS GOING TO JUMP OUT OF MY SKIN pollen Allergy (Unknown, Uncoded 04/24/23 10:34) asthma, sinus infection Do you need a note to return to daycare/school/sports/work: No HPI EP ?UTI Lobby HPI Details This is a 57-year-old male patient presents today with dysuria offer for the last 4 days. He had some old amoxicillin left over, and used this for the last few days, in addition to [id number] AZO without relief. He states he has burning with urination. Denies urgency or frequency. Denies any risk for STI. Denies any new partners. Denies fever or chills. Has been feeling mild achiness. [facility] Medical History Sinusitis, acute Pruritic intertrigo Restless leg syndrome IBS (irritable bowel syndrome) Dyslipidemia Mild intermittent asthma in adult without complication Surgical History Hx of colonoscopy History of lipoma History of inguinal hernia repair Family History Father Cancer of prostate Cancer of thyroid Mother Mitral valve prolapse Skin cancer Breast cancer SVT (supraventricular tachycardia) Sister Atrial septal aneurysm Social History Housing: House Alcohol intake: current Patient Tobacco Use Status: Never used Tobacco e-Cigarette/Vaping Use: Never Used Second Hand Smoke Exposure: No service: No Current occupational status: employed Current occupation: [employer] Current occupational exposures/hazards: No Cognitive needs: No Hearing needs: No Vision needs: No Review of Systems Const All systems reviewed & are unremarkable except as noted in HPI and below Physical Exam Vital Signs: Last Vital Signs Temp 97.9 F 04/24/23 10:32 Pulse 68 04/24/23 10:32 BP 122/70 04/24/23 10:32 Pulse Ox 97 04/24/23 10:32 Oxygen Delivery Method Room Air 04/24/23 10:32 BMI result Body Mass Index 29.7 Const General: cooperative and no acute distress Resp Effort & Inspection: normal respiratory effort General: Yes bladder normal to palpation and Yes no CVA tenderness Back/Spine/Pelvis Back: no CVA tenderness Skin General skin exam: no rashes or lesions noted Psych Appearance: grossly normal Mental Status: mental status grossly normal Speech and movement: Normal speech and movement present Results AMB Urinalysis, Automated UA Leukoctes 0 Yvette/uL Last Edit by Sydni Weston CMA on 04/24/23 11:01 UA Nitrite Negative Last Edit by Sydni Weston CMA on 04/24/23 11:01 UA Urobilinogen 0.2 mg/dL Last Edit by Sydni Weston CMA on 04/24/23 11:01 UA Protein 0 mg/dL Last Edit by Sydni Weston CMA on 04/24/23 11:01 UA pH 6.0 Last Edit by Sydni Weston CMA on 04/24/23 11:01 UA Blood 0 Hollis/uL Last Edit by Sydni Weston CMA on 04/24/23 11:01 UA Specific [place] 1.030 Last Edit by Sydni Weston CMA on 04/24/23 11:01 UA Ketone Negative Last Edit by Sydni Weston CMA on 04/24/23 11:01 UA Bilirubin 0 mg/dL Last Edit by Sydni Weston CMA on 04/24/23 11:01 UA Glucose 0 mg/dL Last Edit by Sydni Weston CMA on 04/24/23 11:01 Assessment & Plan Assessment & Plan (1) Dysuria: Code(s): R30.0 - Dysuria Plan: Patient has dysuria, however his urine dip in the office was normal. I am going to send his urine out for culture , and start him on Nitrofurantoin empirically. Will also prescribe him Pyridium for symptomatic relief. Advised increase hydration. He declines any need for STI testing. He will return to the clinic if he does not improve with treatment, at which point he may benefit from a urology referral. Orders: Orders Urine Culture Today R30.0 - Dysuria AMB Urinalysis Automated Today R30.0 - Dysuria Medications: New nitrofurantoin monohyd/m-cryst 100 mg (Macrobid) must administer with a meal/food 100 mg PO Q12H 14 caps 0RF 7 days N30.90 - Cystitis, unspecified without hematuria phenazopyridine 200 mg PO TID PRN 6 tabs 0RF pain 6 doses R30.0 - Dysuria Coding Level of Care Code Est Pt Level 3 (37147) Diagnoses Dysuria R30.0
== END 2023-04-24 11:14 | disposition home or self-care (01) ==
PROVIDERS: PCP Nurse Practitioner Family; Visit Provider Nurse Practitioner Family
DX: R30.0 Dysuria (principal)
CPT/HCPCS: 81003; 99213

== ENCOUNTER 2023-04-24 11:08 | Outpatient (REF) | payer OTHER, SELFPAY | END 2023-04-24 11:09 | disposition home or self-care (01) | LOC: HO.LAB 11:08 | PROVIDERS: Visit Provider Nurse Practitioner Family | DX: R30.0 Dysuria (principal) | CPT/HCPCS: 87086 ==

== ENCOUNTER 2023-04-28 12:19 | Emergency (ER) | payer OTHER, SELFPAY ==
--- NOTE | ~2023-04-28 | CT_ITS ---
EXAMINATION: CT ABDOMEN AND PELVIS WITH CONTRAST CLINICAL INFORMATION: 57-year-old male with right lower quadrant abdominal pain COMPARISON: 08/18/2019 TECHNIQUE: Multidetector volumetric images were obtained from the superior aspect of the liver through the pubic symphysis following administration 85 mL of Omnipaque 350 intravenous contrast. Sagittal and coronal reformatted images were obtained on the technologist's workstation. Oral contrast: No This CT examination was performed using dose optimization techniques as appropriate, variously including the following: *Automated exposure control *Adjustment of mA and/or kV according to patient size (this includes techniques or standardized protocols for targeted exams where dose is matched to indication/reason for exam; i.e. extremities or head) *Use of iterative reconstruction technique DLP: 769 mGy-cm FINDINGS: LUNG BASES: The visualized lung bases are unremarkable. LIVER, GALLBLADDER, AND BILIARY TREE: The liver is normal in size, shape, and attenuation. No focal hepatic lesion or biliary ductal dilatation is present. The gallbladder is unremarkable with no evidence of radiopaque gallstones, gallbladder wall thickening, or obvious pericholecystic inflammatory changes. PANCREAS: Unremarkable. SPLEEN: Unremarkable. ADRENAL GLANDS: Unremarkable. KIDNEYS AND URETERS: There is mild perinephric stranding on the right without hydroureteronephrosis, cysts, masses. Left kidney revealed mild perinephric stranding and slightly growing since previous study exophytic cyst in upper pole, measured now 2.3 cm. There is small parapelvic cyst in the left kidney. Ureters are nondilated. There is no nephrolithiasis. BLADDER: Unremarkable. GASTROINTESTINAL TRACT: The small and large bowel are unremarkable. The appendix is normally identified. ABDOMINAL WALL: No significant hernia is appreciated. LYMPH NODES: Normal. VASCULAR: Unremarkable. PELVIC VISCERA: Unremarkable. OSSEOUS STRUCTURES: A degenerative changes at the level of L4-L5 and L5-S1 CT/CT abdomen pelvis w IV con IMPRESSION: 1. No explanation for right lower quadrant abdominal pain. 2. Mild perinephric stranding bilaterally. 3. Slightly growing cyst in the upper pole of the left kidney and small parapelvic cyst in the left kidney. 4. Degenerative changes in lower lumbar spine. Fleischner guidelines were followed.
[2023-04-28 12:30] VITALS: BP 135/85; BP 201/89; PULSE 112; PULSE 93; RESP 20; TEMP 36.5; O2SAT 96; O2SAT 98; BMI 29.6
[2023-04-28 13:31] LABS: MANUAL DIFF FLAG NO
[2023-04-28 13:33] LABS: Eosinophils Percent Auto 0.3 % (0-4); Hematocrit 42.9 % (42.0-52.0); Hemoglobin 14.8 g/dl (14.0-18.0); Imm Gran Abs Auto 0.03 X10*3/uL (0.00-0.03); Imm Gran Pct Auto 0.4 % (0.0-0.4); Lymphocytes Absolute Auto 0.8 X10*3/uL (1.2-4.9); Mean Corpuscular HGB Conc 34.5 g/dl (31.0-36.0); Mean Corpuscular Hemoglobin 30.9 pg (27.0-33.0); Mean Corpuscular Volume 89.6 fL (80.0-98.0); Mean Platelet Volume 9.4 fL (9.4-12.4); Monocytes Absolute Auto 0.6 X10*3/uL (0.1-1.2); Monocytes Percent Auto 8.8 % (2-11); Neutrophils Absolute Auto 5.5 x10*3/uL (2.0-8.3); Neutrophils Percent Auto 78.5 % (45-73); Platelet Count 259 X10*3/uL (160-400); Red Blood Count 4.79 X10*6/uL (4.60-5.80); White Blood Count 6.9 X10*3/uL (4.8-10.8)
--- NOTE | 2023-04-28 13:33 | ED_ITS ---
HPI - General Adult General Chief complaint: Abdominal Pain Stated complaint: RLQ PAIN, UTI X1 WEEK PER EMS Time Seen by Provider: 04/28/23 13:07 Source: patient Mode of arrival: EMS Limitations: no limitations History of Present Illness HPI narrative: 57 yr old male with a history of IBS, elevated PSA, asthma, HDL, restless leg syndrome, previous UTI treated 6 months ago presenting with right lower abdominal pain and nausea that started last night. States his blood pressure and heart rate was otto high . Reports dizziness and generalized weakness this morning causing him to almost fall while taking a shower now improved but still has sinus pressure ongoing for the past few days hx of sinusitis ( feels similar). Patient is currently being treated for a UTI on nitrofurantoin after incorrectly taking amoxicillin . He states that his UTI symptoms have not improved (burning with urination). Reports a loss of appetite. Denies increased urinary urgency, frequency, blood in urine or back pain. Denies fever, chills, nausea, vomiting, constipation and diarrhea. Patient was given Zofran by EMS prior to arrival in the ED. Related Data Home Medications Medication Instructions Recorded Confirmed dupilumab 300 mg/2 mL subcutaneous mg subcut Q2W 05/19/20 02/15/23 syringe Previous Rx's Medication Instructions Recorded albuterol sulfate 90 mcg/actuation 2 puff PO Q4H PRN bronchospasm 30 05/23/21 aerosol inhaler days #8.5 grams bisacodyl 5 mg tablet,delayed 20 mg (4 x 5 mg) PO ONCE 10/02/22 release (Dulcolax (bisacodyl)) colonoscopy prep 1 day #4 tabs omeprazole 20 mg capsule,delayed 20 mg PO DAILY 30 days #30 caps 10/02/22 release polyethylene glycol 3350 17 238 g PO ONCE 1 day #238 grams 10/02/22 gram/dose oral powder (Miralax) fluticasone propionate 50 1 spray intranasal DAILY #16 grams 01/03/23 mcg/actuation nasal spray,suspension atorvastatin 80 mg tablet 80 mg PO BEDTIME #30 tabs 02/19/23 eszopiclone 3 mg tablet (Lunesta) 3 mg PO BEDTIME 90 days #90 tabs 02/20/23 amoxicillin 500 mg capsule 500 mg PO Q8H #30 caps 03/13/23 ropinirole 2 mg tablet 2 mg PO BEDTIME #90 tabs 03/13/23 nitrofurantoin 100 mg PO Q12H 7 days #14 caps 04/24/23 monohydrate/macrocrystals 100 mg capsule (Macrobid) phenazopyridine 200 mg tablet 200 mg PO TID PRN pain 6 doses #6 04/24/23 tabs amoxicillin 875 mg-potassium 1 tab PO BID 10 days #20 tabs 04/28/23 clavulanate 125 mg tablet prednisone 20 mg tablet 20 mg PO DAILY 5 days #5 tabs 04/28/23 Allergies Allergy/AdvReac Type Severity Reaction Status Date / Time acetaminophen [From TYLENOL] Allergy Unknown FEELS LIKE Verified 04/28/23 12:36 HE IS GOING TO JUMP OUT OF MY SKIN pollen Allergy Unknown asthma, Uncoded 04/24/23 10:34 sinus infection Review of Systems 2 Review of Systems: Constitutional : No Weight loss, No Fever, No Chills, No Fatigue, No Malaise ENT/Mouth : No sore throat, No Rhinorrhea Eyes: No Eye Pain, No Swelling, No Redness Cardiovascular : No Chest Pain, No SOB, No Dyspnea on Exertion, No Orthopnea, No Edema, No Palpitations Respiratory : No Cough, No Sputum, No Wheezing Gastrointestinal : + Right lower abdominal pain, loss of appetite. No Nausea, No Vomiting, No Diarrhea, No Constipation, No Hematochezia, No Melena Genitourinary : + Dysuria. No Urinary Frequency, No urinary urgency, No Hematuria, Musculoskeletal : No joint pain, No Myalgias, No Joint Swelling Skin : No Skin Lesions, No rash Neuro : + Dizziness, Weakness, No Numbness, No Headache Psych : No Anxiety/Panic, No Depression Heme/Lymph: No Bruising, No Bleeding,No Lymphadenopathy Endocrine : No Polyuria, No Polydipsia All other systems reviewed and are negative Yes all other systems are reviewed and are negative [facility] Past Medical History Attestation statement: The following information was validated with the patient. Source: old records reviewed and nursing notes reviewed Onset Date is defined in the Problem List Problems that require an onset date and time if occurred within 24 hrs of arrival to the ED Aortic Dissection and Rupture; Neurologic impairment; Cardiopulmonary Arrest; Endotracheal Intubation; Insertion or Replacement of Mechanical Circulatory Assist Device Medical History Sinusitis, acute Pruritic intertrigo Restless leg syndrome IBS (irritable bowel syndrome) Dyslipidemia Mild intermittent asthma in adult without complication Surgical History Hx of colonoscopy History of lipoma History of inguinal hernia repair Family History Family History Father Cancer of prostate Cancer of thyroid Mother Mitral valve prolapse Skin cancer Breast cancer SVT (supraventricular tachycardia) Sister Atrial septal aneurysm Social History Social History Housing: House Alcohol intake: current Patient Tobacco Use Status: Never used Tobacco Smoked in Last 30 Days: No e-Cigarette/Vaping Use: Never Used Second Hand Smoke Exposure: No Advance Directives: No Advance Directives Information Provided: Yes service: No Current occupational status: employed Current occupation: [employer] Current occupational exposures/hazards: No Cognitive needs: No Hearing needs: No Vision needs: No Physical Exam ED Vital Signs: Vital Signs - 24 hr 04/28/23 12:30 04/28/23 15:25 Temperature 97.7 F 97.9 F Pulse Rate 93 76 Respiratory Rate 20 18 Blood Pressure 135/85 146/77 H Pulse Oximetry 96 97 Oxygen Delivery Method Room Air Room Air BMI result Body Mass Index 29.6 vss in normal limits Appearance: Alert.? Oriented X3.? No acute distress.? Head: Normocephalic, atraumatic, no step-offs or deformities Eyes: Pupils equal, round and reactive to light.? Neck: Normal inspection.? Neck supple.? CVS: Normal heart rate and rhythm.? Pulses normal.? Respiratory: No respiratory distress.? Breath sounds normal.? Abdomen: Soft, non distended with bowel sounds present throughout. RLQ tenderness Skin: Skin warm and dry.? Normal skin color.? Normal skin turgor.? Extremities: No lower extremity edema.? No calf ttp. 5/5 strength to bilateral upper and lower extremities Back: No midline tenderness, no C-spine tenderness, full range of motion, no CVA tenderness bilaterally Neuro: Oriented X 3.? No motor deficit.? No sensory deficit. CN 2-12 intact . Normal [id number], sutm-es-[id number] steady tandem gait normal coordination. Course Reevaluation(s) Reevaluation #1: CBC wnl. Chemistry unremarkable. UA + nitrates w/o bacteria --> likely secondary to pyridum. Unlikely acute infection. CT abdomen and pelvis no explaination for RLQ pain, mild perinephric stranding b/l. Growing cyst in upper pole of left kidney. ( patient aware.) Patient feeling better Time: 16:08 Reevaluation #2: Upon re-evaluation neurological exam remains nonfocal. Will discharge patient with Augmentin for sinusitis and prednisone. Advised PCP follow-up within the next few days as well as Urology peer Educated patient on diagnosis and treatment plan, answered all question, patient verbalizes understanding. At this time patient will be discharged home, advised to return with new or worsening symptoms. Educated on worrisome signs and symptoms and when to return. At this time I feel comfortable discharge home. Time: 16:51 Medications Administered Generic Name Dose Route Start Last Admin Trade Name Freq PRN Reason Stop Dose Admin Sodium Chloride 1,000 mls @ 999 mls/hr 04/28/23 16:00 04/28/23 16:07 Ns IV 04/28/23 17:00 999 mls/hr .Q1H1M NATALIA Administration Discontinued Medications Generic Name Dose Route Start Last Admin Trade Name Freq PRN Reason Stop Dose Admin Iohexol 100 ml 04/28/23 14:13 04/28/23 14:14 Iohexol 350 Mg/Ml 100 Ml Infus..Btl IV 04/28/23 14:14 85 ml ONCE ONE Administration Medical Decision Making Medical Decision Making MDM Narrative: 57 yr old male with a history of IBS, elevated PSA, asthma, HDL, restless leg syndrome presenting with right lower abdominal pain and nausea that started last night. PE significant for RLQ tenderness. No CVA tenderness Most likely viral illness vs uti vs obstructed stone. Will rule out appendicitis vs pyelonephritis vs complicated UTI. Unlikely sepsis, acute abdomen, obstruction. Dizziness and weakness most likely due to infection/ sinusitis. no signs of stroke, posterior stroke, meningitis, encephalitis, ich NIHSS- 0 Plan labs, imaging. Differential Diagnosis Differential Diagnoses: The differential diagnosis associated with the presentation includes Most likely viral illness vs uti vs obstructed stone. Will rule out appendicitis vs pyelonephritis vs complicated UTI. Unlikely sepsis, acute abdomen, obstruction. Dizziness and weakness most likely due to infection/ sinusitis. no signs of stroke, posterior stroke, meningitis, encephalitis, ich Admission/Observation Consideration of admission/observation: Escalation of care including admission/observation considered Consult Healthcare Provider Management of the patient was discussed with: Incident Response Specialist (ID Dr. Romero - no white count, + nitrates prob from pyridium unlikley acute UTI no need for atbx fu w/ urology ) Lab Data [facility] Lab Attestation statement: I reviewed the patient's lab results. CBC unremarkable. CMP signficant for elevated glucose of 167. Elevated bilirubin 1.1. COVID, Flu negative UA significant for specific gravity of 1.030, + nitrates and trace leukocytes 04/28/23 13:26 04/28/23 13:26 Labs: Lab Results 04/28/23 04/28/23 Range/Units 13:26 15:28 WBC 6.9 (4.8-10.8) X10*3/uL RBC 4.79 (4.60-5.80) X10*6/uL Hgb 14.8 (14.0-18.0) g/dl Hct 42.9 (42.0-52.0) % MCV 89.6 (80.0-98.0) fL MCH 30.9 (27.0-33.0) pg MCHC 34.5 (31.0-36.0) g/dl RDW 12.0 (11.0-16.0) % Plt Count 259 (160-400) X10*3/uL MPV 9.4 (9.4-12.4) fL Immature Gran % (Auto) 0.4 (0.0-0.4) % Neut % (Auto) 78.5 H (45-73) % Lymph % (Auto) 12.0 L (20-40) % [place] % (Auto) 8.8 (2-11) % Eos % (Auto) 0.3 (0-4) % Baso % (Auto) 0.0 (0-2) % Lymph # (Auto) 0.8 L (1.2-4.9) X10*3/uL [place] # (Auto) 0.6 (0.1-1.2) X10*3/uL Eos # (Auto) 0.0 (0.0-0.4) X10*3/uL Baso # (Auto) 0.0 (0.0-0.2) X10*3/uL Abs Immat Gran (auto) 0.03 (0.00-0.03) X10*3/uL Absolute Neuts (auto) 5.5 (2.0-8.3) x10*3/uL Absolute Nucleated RBC 0.000 (0.0-0.012) X10*3/uL Nucleated RBC % (auto) 0.0 (0.0-0.2) /100WBC Sodium 140 (135-145) mmol/L Potassium 3.6 (3.3-5.1) mmol/L Chloride 106 (96-108) mmol/L Carbon Dioxide 24 (22-29) mmol/L Anion Gap 14 (12-20) BUN 14 (9-16) mg/dL Creatinine 0.98 (0.5-1.4) mg/dL Estim Creat Clear Calc 110.5 Estimated GFR > 60 Random Glucose 167 H (60-115) mg/dL Calcium 9.4 (8.4-10.2) mg/dL Magnesium 1.7 (1.6-2.6) mg/dL Total Bilirubin 1.1 H (0.0-1.0) mg/dL AST 20 (5-37) U/L ALT 31 (0-40) U/L Alkaline Phosphatase 79 (39-117) U/L Total Protein 6.9 (6.5-8.0) g/dL Albumin 4.5 (3.5-5.0) g/dL Lipase 24 (8-78) U/L Urine Color Dark Yellow Urine Appearance Clear Urine pH 5.5 (5.0-9.0) Ur Specific [place] >= 1.030 H (1.005-1.025) Urine Protein Negative (Neg-Trace) mg/dL Urine Glucose (UA) Negative (Negative) mg/dL Urine Ketones Trace (Negative) mg/dL Urine Blood Negative (Negative) Urine Nitrite Positive H (Negative) Ur Leukocyte Esterase Trace H (Negative) Urine RBC 0-2 (0-2) /HPF Urine WBC 6-10 H (0-5) /HPF Ur Squamous Epith Cells 0-2 (0-2) /HPF Urine Bacteria None Seen (None Seen) Hyaline Casts 0-2 (0-2) /LPF COVID-19 (SHAY) Negative (Negative) COVID-19 Clin Com See Note Influenza Type A (LYNNE) Negative (Negative) Influenza Type B (LYNNE) Negative (Negative) Influenza A & B Note See Note Independent Interpretation I performed an independent interpretation of an: CT Scan (CT/CT abdomen pelvis w IV con IMPRESSION: 1. No explanation for right lower quadrant abdominal pain. 2. Mild perinephric stranding bilaterally. 3. Slightly growing cyst in the upper pole of the left kidney and small parapelvic cyst in the left kidney. 4. Degenerative changes in lower lumbar spin) Radiology Impression Discussion of test interpretation with radiology: I have reviewed the radiologist's reading. External Record Review External record reviewed: Inpatient record Tests considered The following testing was considered but not selected: NIHSS- [address] head, cta, mri of head Prescription Management I considered prescription management with: Antibiotic Critical Care Time Critical Care Time Critical Care Time: Yes Total Critical Care Time: 45 Attestation: I attest to this time spent taking care of the patient, obtaining history, physical, reviewing labs, imaging, speaking to my attending, speaking to specialist. Discharge Plan Discharge Clinical Impression: Sinusitis, Abdominal pain, RLQ Patient Disposition: Home, Self-Care Instructions: Sinusitis (ED), Abdominal Pain (ED) Additional Instructions: Take your medications as prescribed. If you were prescribed antibiotics today, it is important that you take your medication to their entirety, do not skip any doses, do not finish them early. Follow-up with your primary care provider this week. Return to the emergency department with new or worsening symptoms. Such as fevers, chills, chest pain, shortness of breath, nausea, vomiting, dizziness, headache, vision changes, lethargy In case of emergency call 911 CT/CT abdomen pelvis w IV con IMPRESSION: 1. No explanation for right lower quadrant abdominal pain. 2. Mild perinephric stranding bilaterally. 3. Slightly growing cyst in the upper pole of the left kidney and small parapelvic cyst in the left kidney. 4. Degenerative changes in lower lumbar spine. Fleischner guidelines were followed. Prescriptions: New amoxicillin-pot clavulanate 875-125 mg tablet 1 tab PO BID 10 Days Qty: 20 0RF prednisone 20 mg tablet 20 mg PO DAILY 5 Days Qty: 5 0RF No Action fluticasone propionate 50 mcg/actuation spray,suspension 1 spray intranasal DAILY Qty: 16 4RF atorvastatin 80 mg tablet 80 mg PO BEDTIME Qty: 30 5RF eszopiclone [Lunesta] 3 mg tablet 3 mg PO BEDTIME 90 Days Qty: 90 0RF ropinirole 2 mg tablet 2 mg PO BEDTIME Qty: 90 1RF albuterol sulfate 90 mcg/actuation HFA aerosol inhaler 2 puff PO Q4H PRN (Reason: bronchospasm) 30 Days Qty: 8.5 4RF dupilumab 300 mg/2 mL syringe subcut Q2W amoxicillin 500 mg capsule 500 mg PO Q8H Qty: 30 0RF nitrofurantoin monohyd/m-cryst [Macrobid] 100 mg capsule 100 mg PO Q12H 7 Days Qty: 14 0RF Rx Instructions: must administer with a meal/food phenazopyridine 200 mg tablet 200 mg PO TID PRN (Reason: pain) Qty: 6 0RF bisacodyl [Dulcolax (bisacodyl)] 5 mg tablet,delayed release (DR/EC) 20 mg PO ONCE 1 Days Qty: 4 0RF Rx Instructions: Take 4 tablets by mouth at 12:00pm the day before your procedure. polyethylene glycol 3350 [Miralax] 17 gram/dose powder 238 g PO ONCE 1 Days Qty: 238 0RF Rx Instructions: Take as directed by mouth the day before your procedure. omeprazole 20 mg capsule,delayed release(DR/EC) 20 mg PO DAILY 30 Days Qty: 30 6RF [place] [facility] [facility] [place] - 1 week Adrian Kamara FNP- [Primary Care Provider] - 2 days Stand Alone Forms: Work/School Release
--- NOTE | 2023-04-28 13:40 | PC.NURSE ---
Labs/swabs obtained, J-loop on IV changed to our CT protocol line obtained. Pt is currently resting comfortably in bed with at bedside, all needs met at this time
[2023-04-28 13:51] LABS: Alanine Aminotransferase 31 U/L (0-40); Albumin Level 4.5 g/dL (3.5-5.0); Alkaline Phosphatase 79 U/L (39-117); Anion Gap 14 (12-20); Aspartate Amino Transferase 20 U/L (5-37); Bilirubin Total 1.1 mg/dL (0.0-1.0); Blood Urea Nitrogen 14 mg/dL (9-16); Calcium 9.4 mg/dL (8.4-10.2); Carbon Dioxide 24 mmol/L (22-29); Chloride 106 mmol/L (96-108); Creatinine Clr Calc Pharmacy 110.5; Estimated Glomerular Filt Rate > 60; Glucose Random 167 mg/dL (60-115); Lipase 24 U/L (8-78); Magnesium 1.7 mg/dL (1.6-2.6); Potassium 3.6 mmol/L (3.3-5.1); Sodium 140 mmol/L (135-145); Total Protein 6.9 g/dL (6.5-8.0)
[2023-04-28 13:57] LABS: COVID-19 Test Negative (Negative); IDNOW Serial# 152EDE1D; IDNOW Serial# 9DB6401D; Influenza A Negative (Negative); Influenza B2 Negative (Negative)
[2023-04-28] MEDS: iohexoL 350 MG/ML 100 ML INFUS..BTL IV (14:14)
[2023-04-28 15:25] VITALS: BP 146/77; PULSE 76; RESP 18; TEMP 36.6; O2SAT 97
[2023-04-28 15:40] LABS: Appearance Urine Clear; Color Urine Dark Yellow; Glucose Urine UA Negative (Negative); Leukocyte Esterase Urine Trace (Negative); Nitrite Urine Positive (Negative); PH 5.5 (5.0-9.0); Specific Gravity - Urine >= 1.030 (1.005-1.025); UMIC TRIGGER UACC YES; Urine Blood Negative (Negative); Urine Ketones Trace mg/dL (Negative); Urine Protein Negative (Neg-Trace)
[2023-04-28 15:54] LABS: Bacteria Urine None Seen (None Seen); Hyaline Casts Urine 0-2 /LPF (0-2); RBC Urine 0-2 /HPF (0-2); Squamous Epithelial Cell Urine 0-2 /HPF (0-2); UACC Culture Trigger YES
[2023-04-28] MEDS: 0.9 % Sodium Chloride 1,000 ML 999 ML IV (16:07)
== END 2023-04-28 16:45 | disposition home or self-care (01) ==
PROVIDERS: Physician Assistant; Emergency Provider Emergency Medicine; PCP Nurse Practitioner Family
DX: R10.31 Right lower quadrant pain (principal); J32.9 Chronic sinusitis, unspecified
CPT/HCPCS: 74177; 80053; 81001; 83690; 83735; 85025; 87086; 87502; 87635; 99284; Q9967

== ENCOUNTER 2023-05-16 14:46 | Outpatient (AMB) | payer OTHER, SELFPAY ==
[2023-05-16 14:49] VITALS: BP 126/76; PULSE 86; TEMP 36.7; O2SAT 96; BMI 28.8
--- NOTE | 2023-05-16 14:49 | MHC.OFFWIV ---
Intake Vital Signs 05/16/23 14:49 Height 6 ft 4 in Weight 237 lb BMI 28.8 BP 126/76 Blood Pressure Location Lt brachial Position Sitting Pulse 86 Pulse Source Pulse Oximeter Temp 98.1 F Temp Source Temporal Artery Scan Pulse Oximetry (%) 96 Oxygen Delivery Method Room Air Intake Visit Reasons: EP Sinus, Dizzy Intake Note: pt is here today for sinus dizzy started 3 weeks ago Patient Tobacco Use Status: Never used Tobacco Allergies acetaminophen [From TYLENOL] Allergy (Unknown, Verified 05/16/23 14:52) FEELS LIKE HE IS GOING TO JUMP OUT OF MY SKIN pollen Allergy (Unknown, Uncoded 04/24/23 10:34) asthma, sinus infection Do you need a note to return to daycare/school/sports/work: No HPI HPI Comments History of Present Illness Details Presents for sinus issues He states it started with a sinus infection in March 08 treated with antibiotics Was seen here on 04/24/23 and diagnosed with UTI and given macrobid He said he was taking the medicine and it was not improving [place] that weekend he got very dehydrated and had to go to the ER for dizziness/dehydration States with fluids he felt better and was told no UTI in ER evaluation He said urine not improving so on 04/28 called PCP and was given Augmentin for UTI and start of sinus symptoms After this, he went to [place] and took a flight and went to a concert. This worsened his dizziness He called PCP at this time and was given meclizine and prednisone without relief of dizziness When he returned from his trip he called PCP about his R sided headache and sinus pressure and was given doxycyclin on 05/07 and finished it this am He said symptoms everyday has gotten a little better but he gets waves of intermittent dizziness When he gets recurrent symptoms he feels facial pressure, R sided headache No room spinning, + feels like he is going to fall over + lack of appetite but no nausea or vomiting + minimal eye redness which he got drops from a walk [place] clinical [place] ad has been using He denies CP States some SOB when he walks up stairs but this is intermittent No fever or chills Had CP work up in the ER July 2022 with negative CTA [facility] Medical History Sinusitis, acute Pruritic intertrigo Restless leg syndrome IBS (irritable bowel syndrome) Dyslipidemia Mild intermittent asthma in adult without complication Surgical History Hx of colonoscopy History of lipoma History of inguinal hernia repair Family History Father Cancer of prostate Cancer of thyroid Mother Mitral valve prolapse Skin cancer Breast cancer SVT (supraventricular tachycardia) Sister Atrial septal aneurysm Social History Housing: House Alcohol intake: current Patient Tobacco Use Status: Never used Tobacco e-Cigarette/Vaping Use: Never Used Second Hand Smoke Exposure: No service: No Current occupational status: employed Current occupation: [employer] Current occupational exposures/hazards: No Cognitive needs: No Hearing needs: No Vision needs: No Review of Systems Const Denies body aches, Denies chills, Reports fatigue, Denies fever(s), Reports headache(s), Denies night sweats and Denies weakness Eyes Denies blurry vision and Denies diplopia ENT Reports dizziness, Reports otalgia, Reports headache(s), Denies nasal congestion, Denies nasal discharge, Reports sinus pain, Reports sinus pressure and Denies sore throat Card Denies chest pain and Denies syncope Resp Denies chest congestion and Denies cough GI Denies abdominal pain, Denies diarrhea, Denies nausea and Denies vomiting Musc Denies myalgias and Denies tingling Neuro Reports dizziness, Denies syncope, Reports headache(s), Denies tingling and Denies weakness Endo Reports fatigue Physical Exam Vital Signs: Last Vital Signs Temp 98.1 F 05/16/23 14:49 Pulse 86 05/16/23 14:49 BP 126/76 05/16/23 14:49 Pulse Ox 96 05/16/23 14:49 Oxygen Delivery Method Room Air 05/16/23 14:49 BMI result Body Mass Index 28.8 General: Non-toxic, NAD. Speaking full sentences. Skin: Warm dry throughout Eye: EOMI, PERRL HENT: Airway patent. Uvula midline. No pharyngeal erythema or edema. 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 Bilateral canals clear. TM non-erythematous, non-bulging. No TM perforation or hemotympanum noted. No sinus tenderness to palpation. + pressure felt with R sided frontal sinus palpation Lymph: No lymphadnopathy palpated Respiratory: CTA bilaterally. No wheezes, rales or rhonchi Cardiac: RRR. No murmur MSK: Full ROM extremities. Neurology: A/O x 3. Negative pronator drift. Able to maintain balance with rhomberg. CN 2-12 grossly intact. No aphasia or facial droop. Gait without abnormality Psych: Good mood and affect Assessment & Plan Assessment & Plan (1) Sinusitis: Code(s): J32.9 - Chronic sinusitis, unspecified Qualifiers: Chronicity: acute Recurrence: recurrent Sinusitis location: frontal Qualified Code(s): J01.11 - Acute recurrent frontal sinusitis Plan: Patient seen and evaluated. No neurological deficit on examination and vitals stable No sinus of bacterial sinusitis on examination Xray sinuses: I viewed as negative Referral to ENT Discussed with patient other etiology of dizziness such as thyroid (normal x 3 years, last 07/2022), electrolyte (checked 04/28/23), intracranial etc He will call PCP for close follow up Discussed worsening s/s that warrant ED evaluation and management Extensive time spent with patient on history, examination and discharg education Patient gave verbal understanding and had no additional questions or concerns at time of discharge All questions answered (2) Dizziness: Code(s): R42 - Dizziness and giddiness Plan: see above Orders: Orders XR sinus min 3V Today J32.9 - Chronic sinusitis, unspecified Referrals Ear/Nose/Throat Referral R42 - Dizziness and giddiness Medications: New meclizine 25 mg PO BID PRN 14 tabs 0RF dizziness Coding Level of Care Code Est Pt Level 4 (40601) Diagnoses Acute recurrent frontal sinusitis J01.11 Chronicity: acute Recurrence: recurrent Sinusitis location: frontal Dizziness R42
== END 2023-05-16 16:19 | disposition home or self-care (01) ==
PROVIDERS: PCP Nurse Practitioner Family; Visit Provider Physician Assistant
DX: J01.11 Acute recurrent frontal sinusitis (principal); R42 Dizziness and giddiness
CPT/HCPCS: 99214

== ENCOUNTER 2023-05-16 15:27 | Outpatient (REF) | payer OTHER, SELFPAY ==
--- NOTE | ~2023-05-16 | XR_ITS ---
EXAMINATION: XR SINUSES CLINICAL INFORMATION: Chronic sinusitis COMPARISON: None available. TECHNIQUE: 3 views of the sinuses were obtained. FINDINGS: Paranasal sinuses appear clear without air-fluid levels. No fractures are identified. No radiodense foreign bodies. XR/XR sinus min 3V IMPRESSION: Unremarkable sinus examination.
== END 2023-05-16 15:28 | disposition home or self-care (01) ==
LOC: HO.HMGCX 15:27
PROVIDERS: Visit Provider Physician Assistant
DX: J32.9 Chronic sinusitis, unspecified (principal)
CPT/HCPCS: 70220

== ENCOUNTER 2023-05-22 13:37 | Outpatient (AMB) | payer OTHER, SELFPAY ==
--- NOTE | 2023-05-22 13:45 | A.OFFVIS_ITS ---
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 Required: No Allergies acetaminophen [From TYLENOL] Allergy (Unknown, Verified 05/22/23 13:50) FEELS LIKE HE IS GOING TO JUMP OUT OF MY SKIN pollen Allergy (Unknown, Uncoded 04/24/23 10:34) asthma, sinus infection Medication List - Last Reconciled 05/22/23 by Millie Kaminski NP-C atorvastatin 80 mg PO BEDTIME dupilumab mg subcut Q2W eszopiclone 3 mg PO BEDTIME 90 days fluticasone propionate 50 mcg/actuation 1 spray intranasal DAILY meclizine 25 mg PO BID PRN omeprazole 20 mg PO DAILY 30 days polymyxin B sulf-trimethoprim 10,000 unit- 1 mg/mL ophthalmic (eye) ropinirole 2 mg PO BEDTIME HPI [facility] [place]/ 04-28/ Calcium build up abd aeorta HPI Details Mitchell is a 58-year-old male with past medical history of hyperlipidemia, prior chest discomfort with normal stress test and echocardiogram, mildly elevated calcium score who presents for follow-up. Today he reports that he has had various symptoms over the last month including illness with UTI, conjunctivitis, headache, sinus issues, pulsating tinnitus, vertigo. He also reports having newer or shortness of breath with activity. Because of his illness he has cut back his physical activity and has been mostly sedentary. He has not had any chest discomfort at rest or with activity. No palpitations, presyncope, syncope, falls. No PND, orthopnea or edema. Has been to his PCP. Has and ENT visit however not until September. [facility] Medical History Sinusitis, acute Pruritic intertrigo Restless leg syndrome IBS (irritable bowel syndrome) Dyslipidemia Mild intermittent asthma in adult without complication Surgical History Hx of colonoscopy History of inguinal hernia repair History of lipoma Family History Father Cancer of prostate Cancer of thyroid Mother Mitral valve prolapse Skin cancer Breast cancer SVT (supraventricular tachycardia) Sister Atrial septal aneurysm Social History Housing: House Alcohol intake: current Patient Tobacco Use Status: Never used Tobacco e-Cigarette/Vaping Use: Never Used Second Hand Smoke Exposure: No service: No Current occupational status: employed Current occupation: [employer] Current occupational exposures/hazards: No Cognitive needs: No Hearing needs: No Vision needs: No Review of Systems Const All systems reviewed & are unremarkable except as noted in HPI and below ENT Details: pulsating tinnitus, headaches Reports vertigo and Reports dizziness Card Denies chest pain, Denies chest pain at rest, Denies chest pain with activity, Denies rapid heart rate, Denies pedal edema, Denies edema, Denies leg edema, Denies lightheadedness, Denies palpitations, Reports dyspnea on exertion and Denies orthopnea Resp Denies cough and Reports dyspnea on exertion GI Denies hematochezia and Denies change in stool character Musc Denies abnormal gait, Denies limited range of motion, Denies muscle cramps, Denies muscle weakness, Denies numbness, Denies radiating pain into limb, Denies stiffness and Denies tingling Neuro Denies abnormal gait, Reports vertigo, Reports dizziness, Denies numbness and Denies tingling Endo Denies palpitations Physical Exam Vital Signs: Last Vital Signs Pulse 85 05/22/23 13:46 BP 132/80 05/22/23 13:46 BMI result Body Mass Index 28.5 Const General: cooperative, healthy appearing, comfortable and no acute distress Orientation/consciousness: patient oriented x3 Neck Neck: Yes normal visual inspection Resp Effort & Inspection: normal respiratory effort Auscultation: clear to auscultation bilaterally, no crackles, no rales, no rhonchi and no wheezes Cardio Jugular venous distension: no JVD Rate: regular rate Rhythm: regular rhythm Heart sounds: S1 normal heart sound present, S2 normal heart sound present, no murmurs and no rubs Neuro General: patient oriented x3 Extrem General: Yes normal to inspection, No no pedal edema and No calf tenderness Psych Appearance: grossly normal Mental Status: mental status grossly normal Speech and movement: Normal speech and movement present Assessment & Plan Assessment & Plan (1) Shortness of breath: Code(s): R06.02 - Shortness of breath Plan: Newer symptom of shortness of breath with activity following 1 month of illness with various bacterial versus viral infections. He has not had any diagnosis of pneumonia or Congestive heart failure. On examination he does not appear in heart failure. His lungs are very clear on examination and no edema is present. Has been mostly sedentary recently due to his noncardiac illness. At this time he may have deconditioning. Spent time reviewing this with him in detail. Signs and symptoms of angina discussed. An echocardiogram was done on 08/29/2022 showing EF 60%, no valve abnormalities. An exercise stress test done 08/29/2022 showed good exercise tolerance and no EKG changes of ischemia. These tests are reassuring. Will have him continue to monitor symptoms. Will check BNP. Call this office if symptoms are worsening. Emergency care if ever needed. Car diology follow-up to re-evaluate Tums in 4-6 weeks. (2) Dizziness: Code(s): R42 - Dizziness and giddiness Plan: Reports of dizziness describes as being vertigo. He does have tinnitus following recent bacterial/viral illness. He has an ENT appointment however not until September. He is taking meclizine as ordered by his PCP. He tells me it does help. He is ambulating steady at this time. Symptoms not concerning for orthostatic blood pressures. Blood pressure in the normal range today. Instructed on maintaining good hydration. Periodic blood pressure checks if able. (3) Pulsatile tinnitus: Code(s): H93.A9 - Pulsatile tinnitus, unspecified ear Plan: As above (4) Elevated coronary artery calcium score: Code(s): R93.1 - Abnormal findings on diagnostic imaging of heart and coronary circulation Plan: Coronary calcium score 124 was done on 09/13/2022. Left main 120, lad 2, right coronary 2. Reviewed this with him. The importance of good cholesterol control discussed. Labs done on 02/19/2023 showed LDL 92. He tells me at that time his atorvastatin was increased from 40 mg daily up to 80 mg daily. Is due for a fasting lipid profile at this time. With presence of coronary artery disease will have him start on aspirin 81 mg daily. The reason for aspirin use was discussed. Signs and symptoms of angina reviewed (5) Dyslipidemia: Code(s): E78.5 - Hyperlipidemia, unspecified Plan: As above. Will order CMP and lipids Plan Time spent on chart review, documentation, interview and assessment Orders: Orders Comprehensive Met. Panel Today E78.5 - Hyperlipidemia, unspecified, R06.02 - S hortness of breath B Type Natriuretic Peptide Today R06.02 - Shortness of breath Lipid Panel Today E78.5 - Hyperlipidemia, unspecified Coding Level of Care Code Est Pt Level 4 (61937) Diagnoses Shortness of breath R06.02 Dizziness R42 Pulsatile tinnitus H93.A9 Elevated coronary artery calcium score R93.1 Dyslipidemia E78.5 Time Spent (min) 28
[2023-05-22 13:46] VITALS: BP 132/80; PULSE 85; BMI 28.5
== END 2023-05-22 14:33 | disposition home or self-care (01) ==
PROVIDERS: PCP Nurse Practitioner Family; Visit Provider Nurse Practitioner Family
DX: R06.02 Shortness of breath (principal); R42 Dizziness and giddiness; H93.A9 Pulsatile tinnitus, unspecified ear; R93.1 Abnormal findings on diagnostic imaging of heart and coronary circulation; E78.5 Hyperlipidemia, unspecified
CPT/HCPCS: 99214

== ENCOUNTER → 2023-05-22 13:37 | Outpatient (BNVA) | payer OTHER, SELFPAY | PROVIDERS: PCP Nurse Practitioner Family; Visit Provider Nurse Practitioner Family ==

== ENCOUNTER 2023-06-27 12:54 | Outpatient (RCR) | payer OTHER, SELFPAY ==
[2023-06-27 13:03] VITALS: BP 142/84; PULSE 71; O2SAT 98
--- NOTE | 2023-07-27 10:23 | MHC.PT.DC ---
[facility] [place] Office [place] Office [place] Office [address] Jovon Burton [address] [phone] F: [phone] F: [phone] F: [phone] F: [phone] Physical Therapy Discharge Report Diagnosis: This is a 58 yo male presenting to skilled PT with a script for vertigo. Date of Surgery: Date of Evaluation: 06/27/23 Date of Discharge: 07/27/23 Treatments to Date: 1 Cancellations to Date: 0 No Shows to Date: 0 Discharge Status: Recommend MD Follow-up Discharge Summary: This is a 58 yo male presenting to skilled PT with a script for vertigo. Patient reporting that he had a series of bad infections starting in April including UTI, dehydration, double conjunctivitis, oral infection and sinus infections. He was on various antibiotics for 4-5 weeks. He reports that he became very dizzy mid April (not room spinning but lightheaded) that has been ongoing since then. Since then he has continued to have lightheadedness and is unable to go to the gym, unable to run/walk or drive as his symptoms get worse (however these can be at rest as well). He reports that his symptoms are described as equilibrium is off, lightheaded and as if someone is pushing down on him. He also reports R sided cranial pressure. Examination shows - oculomotor tests, (-) VBI B, and normal cervical AROM. He was (-) for BPPV with lance-hallpike B and B roll test. Balance was normal except for some lightheadedness that was consistent throughout the session. S/S are not consistent with BPPV at this time and patient would benefit from follow up with PCP and ? referral to neurology address impairments and optimize functional mobility. Electronically signed by: Elizabeth Bone PT Please sign and return to therapist. Thank you for your referral.
== END 2023-07-27 10:23 | disposition home or self-care (01) ==
LOC: HO.PTCHIC 12:54
PROVIDERS: PCP Nurse Practitioner Family; Visit Provider Nurse Practitioner Family
DX: H81.10 Benign paroxysmal vertigo, unspecified ear (principal)
CPT/HCPCS: 97161; 97162

== ENCOUNTER 2023-06-28 11:23 | Outpatient (REF) | payer OTHER, SELFPAY ==
[2023-06-28 13:22] LABS: MANUAL DIFF FLAG NO
[2023-06-28 13:26] LABS: Appearance Urine Clear; Color Urine Yellow; Glucose Urine UA Negative (Negative); Leukocyte Esterase Urine Negative (Negative); Nitrite Urine Negative (Negative); PH 5.5 (5.0-9.0); Urine Blood Negative (Negative); Urine Ketones Negative (Negative); Urine Protein Negative (Neg-Trace)
[2023-06-28 13:36] LABS: Basophils Percent Auto 0.2 % (0-2); Hematocrit 44.7 % (42.0-52.0); Hemoglobin 15.3 g/dl (14.0-18.0); Imm Gran Abs Auto 0.03 X10*3/uL (0.00-0.03); Imm Gran Pct Auto 0.6 % (0.0-0.4); Lymphocytes Absolute Auto 1.2 X10*3/uL (1.2-4.9); Lymphocytes Percent Auto 25.5 % (20-40); Mean Corpuscular HGB Conc 34.2 g/dl (31.0-36.0); Mean Corpuscular Hemoglobin 31.4 pg (27.0-33.0); Mean Corpuscular Volume 91.6 fL (80.0-98.0); Mean Platelet Volume 10.3 fL (9.4-12.4); Monocytes Absolute Auto 0.5 X10*3/uL (0.1-1.2); Neutrophils Absolute Auto 2.9 x10*3/uL (2.0-8.3); Neutrophils Percent Auto 63.7 % (45-73); Platelet Count 244 X10*3/uL (160-400); Red Blood Count 4.88 X10*6/uL (4.60-5.80); Red Cell Distribution Width 12.5 % (11.0-16.0); White Blood Count 4.6 X10*3/uL (4.8-10.8)
[2023-06-28 14:01] LABS: Alanine Aminotransferase 51 U/L (0-40); Albumin Level 4.3 g/dL (3.5-5.0); Alkaline Phosphatase 81 U/L (39-117); Anion Gap 14 (12-20); Aspartate Amino Transferase 24 U/L (5-37); Bilirubin Total 1.2 mg/dL (0.0-1.0); Blood Urea Nitrogen 20 mg/dL (9-16); Calcium 9.5 mg/dL (8.4-10.2); Carbon Dioxide 26 mmol/L (22-29); Chloride 105 mmol/L (96-108); Cholesterol 151 mg/dL (<200); Estimated Glomerular Filt Rate > 60; Glucose Fasting 98 mg/dL (60-99); HDL Cholesterol 59 mg/dL (>40); LDL Cholesterol Calculated 83 mg/dL (<100); Potassium 4.7 mmol/L (3.3-5.1); Sodium 140 mmol/L (135-145); Total Protein 6.6 g/dL (6.5-8.0); Triglycerides 46 mg/dL (<150)
[2023-06-28 14:05] LABS: TSH reflex Free T4 0.94 uIU/mL (0.32-4.0)
== END 2023-06-28 11:24 | disposition home or self-care (01) ==
LOC: HO.HMGCLDS 11:23
PROVIDERS: PCP Nurse Practitioner Family; Visit Provider Nurse Practitioner Family
DX: Z13.6 Encounter for screening for cardiovascular disorders (principal); R42 Dizziness and giddiness; R06.02 Shortness of breath
CPT/HCPCS: 36415; 80053; 80061; 81003; 84443; 85025

== ENCOUNTER 2023-07-02 11:32 | Outpatient (REF) | payer OTHER, SELFPAY ==
[2023-07-03 08:37] LABS: HBsAGNum1 0.41 S/CO (0.00-0.99); Hepatitis A Antibody IgM 0.25 Index (0-0.79); Hepatitis B Core Antibody Nonreactive (Nonreactive); Hepatitis B Surface Antigen Negative (Negative); ~HepC Num1 0.09 S/CO (0.00-0.79); ~Hepatitis A Antibody IgM Nonreactive (Nonreactive); ~Hepatitis B Surface Antibody NONREACTIVE (Nonreactive); ~Hepatitis C Antibody Nonreactive (Nonreactive)
== END 2023-07-02 11:33 | disposition home or self-care (01) ==
LOC: HO.HMGCLDS 11:32
PROVIDERS: PCP Nurse Practitioner Family; Visit Provider Nurse Practitioner Family
DX: R74.8 Abnormal levels of other serum enzymes (principal)
CPT/HCPCS: 36415; 86704; 86706; 86709; 86803; 87340

== ENCOUNTER 2023-07-04 10:25 | Outpatient (REF) | payer OTHER, SELFPAY ==
--- NOTE | ~2023-07-04 | US_ITS ---
EXAMINATION: US ABDOMEN COMPLETE CLINICAL INFORMATION: Abnormal levels of other serum enzymes. COMPARISON: CT abdomen and pelvis 04/28/2023. Ultrasound abdomen 06/11/2019. TECHNIQUE: Real-time imaging of the abdominal viscera. FINDINGS: PANCREAS: Normal. ABDOMINAL AORTA: Visualized portion of the proximal and mid abdominal aorta are normal in caliber. The distal abdominal aorta is obscured by overlying bowel gas and therefore cannot be accurately evaluated. INFERIOR VENA CAVA: Visualized portions are normal. LIVER: The liver is normal in size. The liver contour is normal. Diffusely increased liver echogenicity. No focal hepatic lesion. There is no intrahepatic biliary duct dilatation seen. GALLBLADDER: Normal. The gallbladder is physiologically distended without evidence of stones, sludge, polyps, wall thickening or pericholecystic fluid. Negative sonographic Phipps's sign. COMMON BILE DUCT: Normal in caliber measuring 0.2 cm in diameter. RIGHT KIDNEY: Normal. No hydronephrosis. No renal calculi or focal parenchymal lesions. The kidney measures 9.6 cm in maximum dimension. LEFT KIDNEY: The kidney measures 11.2 cm in maximum dimension. Interval increase in size of simple appearing but now 2.1 cm exophytic cyst off the upper pole of the left kidney. No renal calculi or hydronephrosis. SPLEEN: Normal. The spleen measures 10.5 cm in maximum dimension. FREE FLUID: None. US/US abdomen complete IMPRESSION: -Diffusely increased liver echogenicity suggesting hepatic steatosis. Correlation with liver enzymes recommended. -Interval increase in size of simple appearing but now 2.1 cm exophytic cyst off the upper pole of the left kidney. Otherwise unremarkable sonographic imaging of the abdomen.
[2023-07-04 13:43] LABS: Alanine Aminotransferase 31 U/L (0-40); Albumin Level 4.1 g/dL (3.5-5.0); Alkaline Phosphatase 77 U/L (39-117); Anion Gap 11 (12-20); Aspartate Amino Transferase 20 U/L (5-37); Bilirubin Total 1.2 mg/dL (0.0-1.0); Blood Urea Nitrogen 22 mg/dL (9-16); Calcium 9.1 mg/dL (8.4-10.2); Carbon Dioxide 25 mmol/L (22-29); Chloride 109 mmol/L (96-108); Cholesterol 139 mg/dL (<200); Estimated Glomerular Filt Rate > 60; Glucose Random 91 mg/dL (60-115); HDL Cholesterol 50 mg/dL (>40); LDL Cholesterol Calculated 77 mg/dL (<100); Potassium 4.4 mmol/L (3.3-5.1); Sodium 141 mmol/L (135-145); Total Protein 6.4 g/dL (6.5-8.0); Triglycerides 61 mg/dL (<150)
[2023-07-04 13:51] LABS: B Type Natriuretic Peptide < 10 pg/mL (<100)
== END 2023-07-04 10:26 | disposition home or self-care (01) ==
LOC: HO.HMGCX 10:25
PROVIDERS: Nurse Practitioner Family; PCP Nurse Practitioner Family; Visit Provider Nurse Practitioner Family
DX: R06.02 Shortness of breath (principal); R74.8 Abnormal levels of other serum enzymes; E78.5 Hyperlipidemia, unspecified
CPT/HCPCS: 36415; 76700; 80053; 80061; 83880

== ENCOUNTER 2023-07-30 10:03 | Outpatient (REF) | payer OTHER, SELFPAY ==
[2023-07-30 13:41] LABS: MANUAL DIFF FLAG NO
[2023-07-30 13:52] LABS: Hematocrit 43.9 % (42.0-52.0); Hemoglobin 14.9 g/dl (14.0-18.0); Imm Gran Abs Auto 0.01 X10*3/uL (0.00-0.03); Imm Gran Pct Auto 0.2 % (0.0-0.4); Lymphocytes Absolute Auto 1.1 X10*3/uL (1.2-4.9); Lymphocytes Percent Auto 25.4 % (20-40); Mean Corpuscular HGB Conc 33.9 g/dl (31.0-36.0); Mean Corpuscular Hemoglobin 31.4 pg (27.0-33.0); Mean Corpuscular Volume 92.4 fL (80.0-98.0); Mean Platelet Volume 11.1 fL (9.4-12.4); Monocytes Absolute Auto 0.5 X10*3/uL (0.1-1.2); Monocytes Percent Auto 10.9 % (2-11); Neutrophils Absolute Auto 2.7 x10*3/uL (2.0-8.3); Neutrophils Percent Auto 63.5 % (45-73); Platelet Count 233 X10*3/uL (160-400); Red Blood Count 4.75 X10*6/uL (4.60-5.80); Red Cell Distribution Width 12.1 % (11.0-16.0); White Blood Count 4.2 X10*3/uL (4.8-10.8)
[2023-07-30 14:04] LABS: Alanine Aminotransferase 41 U/L (0-40); Albumin Level 4.4 g/dL (3.5-5.0); Alkaline Phosphatase 76 U/L (39-117); Anion Gap 15 (12-20); Aspartate Amino Transferase 28 U/L (5-37); Bilirubin Total 1.8 mg/dL (0.0-1.0); Blood Urea Nitrogen 17 mg/dL (9-16); Calcium 9.6 mg/dL (8.4-10.2); Carbon Dioxide 26 mmol/L (22-29); Chloride 103 mmol/L (96-108); Estimated Glomerular Filt Rate > 60; Glucose Random 82 mg/dL (60-115); Potassium 4.5 mmol/L (3.3-5.1); Sodium 139 mmol/L (135-145); Total Protein 6.6 g/dL (6.5-8.0)
== END 2023-07-30 10:04 | disposition home or self-care (01) ==
LOC: HO.HMGCLDS 10:03
PROVIDERS: PCP Nurse Practitioner Family; Visit Provider Nurse Practitioner Family
DX: K76.0 Fatty (change of) liver, not elsewhere classified (principal)
CPT/HCPCS: 36415; 80053; 85025

== ENCOUNTER 2023-07-31 08:13 | Outpatient (REF) | payer OTHER, SELFPAY ==
--- NOTE | ~2023-07-31 | MR_ITS ---
EXAMINATION: MR BRAIN WITHOUT AND WITH CONTRAST CLINICAL INFORMATION: Pulsatile tinnitus, vertigo COMPARISON: None TECHNIQUE: Multiplanar multisequence MR imaging of the brain was obtained without and following the administration of 10 mL Gadavist intravenous contrast. FINDINGS: There is no acute infarct on diffusion-weighted imaging. There is no intracranial hemorrhage on iron-sensitive imaging. No extra-axial collection or mass effect/herniation. Scattered periventricular and deep white matter T2 FLAIR hyperintensities consistent with mild underlying microangiopathy. Enlarged perivascular space in the inferior left basal ganglia The 7th and 8th cranial nerve complexes are symmetric in course, caliber, and enhancement characteristics. Major inner ear structures including the cochlea, semicircular canals, and vestibule are symmetric in morphology and demonstrate normal CSF signal. No enhancing intracanalicular or cerebellopontine angle mass lesion is visualized. No hydrocephalus. The ventricles are normal in morphology and size. No abnormal extra-axial enhancement. Small focus of subtle enhancement corresponding susceptibility artifact in the central silvestre, compatible with a capillary telangectasia. The midline structures are normal. The cerebellar tonsils are normally positioned. The craniocervical junction is normal. Marrow signal is within normal limits. The visualized soft tissues are without significant abnormality. No signal abnormality within the paranasal sinuses or within the mastoid air cells. MR/MR head/brain wo/w con IMPRESSION: 1. No evidence of retrocochlear pathology. 2. Mild chronic white matter microangiopathy.
[2023-07-31] MEDS: gadobutroL 10 ML VIAL IVPUSH (09:14)
== END 2023-07-31 08:14 | disposition home or self-care (01) ==
LOC: HO.MRI 08:13
PROVIDERS: PCP Nurse Practitioner Family; Visit Provider Nurse Practitioner Family
DX: R42 Dizziness and giddiness (principal); H93.A9 Pulsatile tinnitus, unspecified ear
CPT/HCPCS: 70553; A9585

== ENCOUNTER 2023-08-02 16:18 | Outpatient (AMB) | payer OTHER, SELFPAY ==
--- NOTE | 2023-08-02 16:20 | A.OFFPC_ITS ---
Vital Signs 08/02/23 16:22 Height 6 ft 4 in Weight 228 lb BMI 27.7 BP 140/96 H Blood Pressure Location Lt brachial Position Sitting Pulse 71 Pulse Source Pulse Oximeter Pulse Oximetry (%) 97 Oxygen Delivery Method Room Air Intake Visit Reasons: PE Intake Note: Patient here for physical exam. colonoscopy: done in 2019 due back in 2029 Allergies acetaminophen [From TYLENOL] Allergy (Unknown, Verified 08/02/23 17:53) FEELS LIKE HE IS GOING TO JUMP OUT OF MY SKIN pollen Allergy (Unknown, Uncoded 08/02/23 17:53) asthma, sinus infection Medication List - Last Reconciled 08/02/23 by Adrian Kamara, PARKING ENFORCEMENT TECHNICIAN- aspirin 81 mg PO DAILY atorvastatin 80 mg PO BEDTIME dupilumab mg subcut Q2W eszopiclone 3 mg PO BEDTIME 90 days ezetimibe 10 mg PO DAILY fluticasone propionate 50 mcg/actuation 1 spray intranasal DAILY omeprazole 20 mg PO DAILY 30 days polymyxin B sulf-trimethoprim 10,000 unit- 1 mg/mL ophthalmic (eye) ropinirole 2 mg PO BEDTIME triamterene-hydrochlorothiazid 37.5-25 mg 1 tab PO DAILY Tobacco use date assessed: 08/02/23 Dental Screening Dental Screen Date: 08/02/23 Did you have a dental visit in the last 12 months?: Yes Did you have a dental problem in the last 6 months where you did not have access to dental care?: No Was dental information given to patient?: Patient has dentist HPI PE HPI Details Pt is here for a PE. Labs were already performed. Due for colon screen, will refer to GI. Due for PSA, will order. Denies dribbling with urination, weak stream, and frequent nocturia. Pt follows up with urology. Pt reports ongoing pulsatile tinnitus. Brain MRI showed no evidence of retrocochlear pathology, mild chronic white matter microangiopathy (which pt reports having for many years on old imaging). He reports ongoing dizziness as well. ? meniere's, follow up with ENT in September. Pt reports that meclizine did not help. Will start triamterene-hydrochlorothiazide 37.5-25mg. 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 He is currently taking atorvastatin 80mg. Will start zetia 10mg. Pt sees a health care consultant. PFSH Medical History Sinusitis, acute Pruritic intertrigo Restless leg syndrome IBS (irritable bowel syndrome) Dyslipidemia Mild intermittent asthma in adult without complication Surgical History Hx of colonoscopy History of inguinal hernia repair History of lipoma Family History Father Cancer of prostate Cancer of thyroid Mother Mitral valve prolapse Skin cancer Breast cancer SVT (supraventricular tachycardia) Sister Atrial septal aneurysm Social History Housing: House Alcohol intake: current Patient Tobacco Use Status: Never used Tobacco e-Cigarette/Vaping Use: Never Used Second Hand Smoke Exposure: No service: No Current occupational status: employed Current occupation: [employer] Current occupational exposures/hazards: No Cognitive needs: No Hearing needs: No Vision needs: No Questionnaire Thrive Questionnaire Date Thrive assessed: 05/23/21 AUDIT C Alcohol Use Questionnaire (AUDIT-C) 1. How often do you have a drink containing alcohol?: Monthly or less 2. How many drinks containing alcohol do you have on a typical day when you are drinking?: 1 or 2 3. How often do you have six or more drinks on one occasion?: Never Total Score: 1 Score Reviewed/Action Taken: No OSCAR-7 AMB Questionnaire OSCAR-7 Date OSCAR - 7 assessed: 05/23/21 Source: Developed by Drs. Moises Schneider, Rajni Cadena, Brian Mcmillan and colleagues, with an educational yee from [employer]. Review of Systems Const Denies chills and Denies fever(s) Eyes Denies blurry vision ENT Reports dizziness and Denies sore throat Card Denies chest pain at rest, Denies chest pain with activity, Denies diaphoresis, Denies dyspnea and Denies dyspnea on exertion Resp Denies cough, Denies dyspnea, Denies dyspnea on exertion and Denies wheezing GI Denies abdominal pain, Denies melena, Denies hematochezia, Denies constipation, Denies diarrhea and Denies loose stools Denies hematuria Musc Denies numbness and Denies tingling Skin/Breast Denies lesions Neuro Reports dizziness, Denies numbness and Denies tingling Psych Denies anxiety, Denies depression, Denies homicidal ideation, Denies suicidal ideation and Denies other (substance abuse) Aller/Immun Denies wheezing Physical exam (Primary Care) Vital Signs: Last Vital Signs Pulse 71 08/02/23 16:22 BP 140/96 H 08/02/23 16:22 Pulse Ox 97 08/02/23 16:22 Oxygen Delivery Method Room Air 08/02/23 16:22 BMI result Body Mass Index 27.7 Tobacco/Smoking Status: Tobacco use Status Tobacco use date assessed 08/02/23 08/02/23 16:26 Patient Tobacco Use Status Never used Tobacco 08/02/23 16:22 e-Cigarette/Vaping Use Never Used 08/02/23 16:22 Thrive Assessment: Date of Thrive Assessment Date Thrive assessed 05/23/21 08/02/23 16:22 Const General: cooperative Nutritional Appearance: well nourished Orientation/consciousness: patient oriented x3 HENMT Head: Yes normal to inspection, Yes normocephalic and Yes atraumatic Ears: TM's normal bilaterally Eyes General: appearance normal, both eyes and all related structures Alignment and Position: alignment normal and position normal Neck Neck: Yes normal visual inspection and Yes no lymphadenopathy Thyroid: Thyroid normal Resp Effort & Inspection: normal respiratory effort Auscultation: clear to auscultation bilaterally Cardio Rate: regular rate Rhythm: regular rhythm Heart sounds: S1 normal heart sound present, S2 normal heart sound present and no murmurs GI Palpation (GI): Soft to palpation and nontender Auscultation: normal bowel sounds Male General Exam: Yes normal external exam Penis: normal penis Scrotum: scrotum normal, testes descended bilaterally and no inguinal hernias Testes: no testicular mass Skin Rashes: no rashes Neuro General: patient oriented x3, moves all extremities, no focal motor deficits and deep tendon reflexes 2+ bilaterally Romberg Test: Negative Psych Appearance: grossly normal Mental Status: mental status grossly normal Speech and movement: Normal speech and movement present Affect: normal affect Attitude: cooperative Thought process: Normal thought process present Thought content: Normal thought content present Insight: Good insight present (Psych) Judgement: Good judgement present (Psych) Assessment and Plan Assessment & Plan (1) Physical exam: Code(s): Z00.00 - Encounter for general adult medical examination without abnormal findings (2) Screening PSA (prostate specific antigen): Code(s): Z12.5 - Encounter for screening for malignant neoplasm of prostate (3) Colon cancer screening: Code(s): Z12.11 - Encounter for screening for malignant neoplasm of colon (4) Pulsatile tinnitus: Code(s): H93.A9 - Pulsatile tinnitus, unspecified ear Plan: medication sent to try, will cont to monitor labs Orders: Orders Complete Blood Count Auto Diff Today Z00.00 - Encounter for general adult medical examination without abnormal findings Comprehensive [place]. Panel Fast Today Z00.00 - Encounter for general adult medical examination without abnormal findings Prostate Specific Antigen Scr Today Z12.5 - Encounter for screening for malignant neoplasm of prostate UA CC w/rflx Micro + Cult Today Z00.00 - Encounter for general adult medical examination without abnormal findings Referrals Gastroenterology Referral Z12.11 - Encounter for screening for malignant neoplasm of colon Medications: New triamterene-hydrochlorothiazid 37.5-25 mg 1 tab PO DAILY 30 tabs 0RF ezetimibe 10 mg PO DAILY 90 tabs 0RF Coding Level of Care Code Est Pt Prev Care 40-64y(89125) Diagnoses Physical exam Z00.00 Screening PSA (prostate specific antigen) Z12.5 Colon cancer screening Z12.11 Pulsatile tinnitus H93.A9
[2023-08-02 16:22] VITALS: BP 140/96; PULSE 71; O2SAT 97; BMI 27.7
== END 2023-08-02 17:23 | disposition home or self-care (01) ==
PROVIDERS: PCP Nurse Practitioner Family; Visit Provider Nurse Practitioner Family
DX: Z00.00 Encounter for general adult medical examination without abnormal findings (principal); Z12.5 Encounter for screening for malignant neoplasm of prostate; Z12.11 Encounter for screening for malignant neoplasm of colon; H93.A9 Pulsatile tinnitus, unspecified ear
CPT/HCPCS: 99396

== ENCOUNTER 2023-08-07 14:01 | Outpatient (AMB) | payer OTHER, SELFPAY ==
[2023-08-07 14:17] VITALS: BP 120/72; PULSE 86; BMI 27.5
--- NOTE | 2023-08-07 14:17 | MHC.OFFVIS ---
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 Allergies acetaminophen [From TYLENOL] Allergy (Unknown, Verified 08/07/23 14:21) FEELS LIKE HE IS GOING TO JUMP OUT OF MY SKIN pollen Allergy (Unknown, Uncoded 08/07/23 14:21) asthma, sinus infection Medication List - Last Reconciled 08/07/23 by Millie Kaminski NP-C aspirin 81 mg PO DAILY atorvastatin 80 mg PO BEDTIME dupilumab mg subcut Q2W eszopiclone 3 mg PO BEDTIME 90 days ezetimibe 10 mg PO DAILY fluticasone propionate 50 mcg/actuation 1 spray intranasal DAILY omeprazole 20 mg PO DAILY 30 days polymyxin B sulf-trimethoprim 10,000 unit- 1 mg/mL ophthalmic (eye) ropinirole 2 mg PO BEDTIME triamterene-hydrochlorothiazid 37.5-25 mg 1 tab PO DAILY HPI HPI 6 week follow-up: Details: Mitchell is a 58-year-old male with past medical history of hyperlipidemia, prior chest discomfort with normal stress test and echocardiogram, mildly elevated calcium score who reported shortness of breath last visit and now presents for follow-up. Today he reports that he has been feeling much better in the last few weeks. He believes his shortness of breath was related to a viral illness that he had been experiencing. He is still having issues with lightheadedness and pulsating tinnitus. He has an ENT evaluation in September. He has been working on increasing his physical activity. He goes to the gym and does routine walking. He is working on weight loss and healthy diet. He has no chest discomfort at rest or with activity. His breathing is now normal. No palpitations, presyncope, syncope, falls. No PND, orthopnea or edema. Takes all meds as directed. [facility] Medical History Sinusitis, acute Pruritic intertrigo Restless leg syndrome IBS (irritable bowel syndrome) Dyslipidemia Mild intermittent asthma in adult without complication Surgical History Hx of colonoscopy History of inguinal hernia repair History of lipoma Family History Father Cancer of prostate Cancer of thyroid Mother Mitral valve prolapse Skin cancer Breast cancer SVT (supraventricular tachycardia) Sister Atrial septal aneurysm Social History Housing: House Alcohol intake: current Patient Tobacco Use Status: Never used Tobacco e-Cigarette/Vaping Use: Never Used Second Hand Smoke Exposure: No service: No Current occupational status: employed Current occupation: [employer] Current occupational exposures/hazards: No Cognitive needs: No Hearing needs: No Vision needs: No Review of Systems Const Details: tinnitus, lightheadedness All systems reviewed & are unremarkable except as noted in HPI and below ENT Denies dizziness Card Denies chest pain, Denies chest pain at rest, Denies chest pain with activity, Denies rapid heart rate, Denies pedal edema, Denies edema, Denies leg edema, Denies lightheadedness, Denies palpitations, Denies dyspnea, Denies dyspnea on exertion and Denies orthopnea Resp Denies cough, Denies dyspnea and Denies dyspnea on exertion GI Denies hematochezia and Denies change in stool character Musc Denies abnormal gait, Reports limited range of motion, Reports muscle cramps, Denies muscle weakness, Denies numbness, Denies radiating pain into limb, Denies stiffness and Denies tingling Neuro Denies abnormal gait, Denies dizziness, Denies numbness and Denies tingling Endo Denies palpitations Physical Exam Vital Signs: Last Vital Signs Pulse 86 08/07/23 14:17 BP 100/82 08/07/23 14:17 BMI result Body Mass Index 27.5 Const General: cooperative, healthy appearing, comfortable and no acute distress Orientation/consciousness: patient oriented x3 Neck Neck: Yes normal visual inspection Resp Effort & Inspection: normal respiratory effort Auscultation: clear to auscultation bilaterally, no crackles, no rales, no rhonchi and no wheezes Cardio Jugular venous distension: no JVD Rate: regular rate Rhythm: regular rhythm Heart sounds: S1 normal heart sound present, S2 normal heart sound present, no murmurs and no rubs Neuro General: patient oriented x3 Extrem General: Yes normal to inspection, No no pedal edema and No calf tenderness Psych Appearance: grossly normal Mental Status: mental status grossly normal Speech and movement: Normal speech and movement present Office Procedures EKG Details: Today, read by me, SR, RBBB, rate 86 [id number], Complete Assessment & Plan Assessment & Plan (1) Shortness of breath: Code(s): R06.02 - Shortness of breath Category: Medical Plan: On last visit he reported a newer symptom of shortness of breath with activity following 1 month of illness with various bacterial versus viral infections. He did not appear to have signs of heart failure. An echocardiogram was done on 08/29/2022 showing EF 60%, no valve abnormalities. An exercise stress test done 08/29/2022 showed good exercise tolerance and no EKG changes of ischemia. Labs done on 07/04/2023 showed BNP less than 10. Today he reports that his breathing has improved back to normal in the last several weeks. He has been exercising routinely and has been tolerating it well. Most likely his shortness of breath symptom was related to the respiratory illness and deconditioning that went along with it. (2) Dizziness: Code(s): R42 - Dizziness and giddiness Category: Medical Plan: Reports of dizziness describes as being vertigo. He does have pulsating tinnitus following recent bacterial/viral illness. He has an ENT appointment however not until September. He is taking meclizine as ordered by his PCP. He tells me it does help. He is ambulating steady at this time. Symptoms not concerning for orthostatic blood pressures. Blood pressure in the normal range today. Reviewed maintaining good hydration. Periodic blood pressure checks if able. (3) Pulsatile tinnitus: Code(s): H93.A9 - Pulsatile tinnitus, unspecified ear Category: Medical Plan: As above (4) Elevated coronary artery calcium score: Code(s): R93.1 - Abnormal findings on diagnostic imaging of heart and coronary circulation Category: Medical Plan: Coronary calcium score 124 was done on 09/13/2022. Left main 120, lad 2, right coronary 2. Reviewed this with him. Nuclear stress test had shown no ischemia. The importance of good cholesterol control discussed. Labs done on 02/19/2023 showed LDL 92. He tells me at that time his atorvastatin was increased from 40 mg daily up to 80 mg daily. Repeat labs done on 07/04/2023 showed LDL 77. Zetia has been added by his PCP. He is scheduled for repeat lipid profile in the near future. Will have him continue on aspirin 81 mg daily. Signs and symptoms of angina reviewed. Cardiology follow-up in 1 year, sooner if needed (5) Dyslipidemia: Code(s): E78.5 - Hyperlipidemia, unspecified Category: Medical Plan: As above. Plan Time spent on chart review, documentation, interview and assessment Coding Level of Care Code Est Pt Level 3 (99850) Diagnoses Shortness of breath R06.02 Dizziness R42 Pulsatile tinnitus H93.A9 Elevated coronary artery calcium score R93.1 Dyslipidemia E78.5 CPT Codes EKG - CPT: 46398-[id number], Complete ([id number]) Time Spent (min) 24
== END 2023-08-07 15:08 | disposition home or self-care (01) ==
PROVIDERS: PCP Nurse Practitioner Family; Visit Provider Nurse Practitioner Family
DX: R06.02 Shortness of breath (principal); R42 Dizziness and giddiness; H93.A9 Pulsatile tinnitus, unspecified ear; R93.1 Abnormal findings on diagnostic imaging of heart and coronary circulation; E78.5 Hyperlipidemia, unspecified
CPT/HCPCS: 93010; 99213

== ENCOUNTER → 2023-08-07 14:01 | Outpatient (BNVA) | payer OTHER, SELFPAY | PROVIDERS: PCP Nurse Practitioner Family; Visit Provider Nurse Practitioner Family | DX: R06.02 Shortness of breath (principal); R42 Dizziness and giddiness; H93.A9 Pulsatile tinnitus, unspecified ear; R93.1 Abnormal findings on diagnostic imaging of heart and coronary circulation; E78.5 Hyperlipidemia, unspecified; Z79.82 Long term (current) use of aspirin | CPT/HCPCS: 93005 ==

== ENCOUNTER 2023-08-10 14:13 | Outpatient (AMB) | payer OTHER, SELFPAY ==
--- NOTE | 2023-08-10 14:59 | A.OFFVIS_ITS ---
Intake Visit Reasons: Follow up Intake Note: Patient is Present for Follow Up Urology Medication:none Antibiotic Allergies:None Blood Thinners: Aspirin Allergies acetaminophen [From TYLENOL] Allergy (Unknown, Verified 08/10/23 14:59) FEELS LIKE HE IS GOING TO JUMP OUT OF MY SKIN pollen Allergy (Unknown, Uncoded 08/10/23 14:59) asthma, sinus infection HPI Comments Details: Mitchell is a pleasant male. He is a patient Dr. Cook. He seen for the following urologic conditions - elevated PSA Annual visit Has had 2 UTI episodes in last year States has effective stream and good bladder emptying We discussed hydration Needs cystoscopy Recent abdominal ultrasound with normal kidneys. Creatinine 0.9. Elevated PSA Elevated PSA found on annual physical PSA 07/05 4.5, 08/06 2.9 No family history prostate cancer PFSH Medical History Sinusitis, acute Pruritic intertrigo Restless leg syndrome IBS (irritable bowel syndrome) Dyslipidemia Mild intermittent asthma in adult without complication Surgical History Hx of colonoscopy History of inguinal hernia repair History of lipoma Family History Father Cancer of prostate Cancer of thyroid Mother Mitral valve prolapse Skin cancer Breast cancer SVT (supraventricular tachycardia) Sister Atrial septal aneurysm Social History Housing: House Alcohol intake: current Patient Tobacco Use Status: Never used Tobacco e-Cigarette/Vaping Use: Never Used Second Hand Smoke Exposure: No service: No Current occupational status: employed Current occupation: [employer] Current occupational exposures/hazards: No Cognitive needs: No Hearing needs: No Vision needs: No Review of Systems Const Denies chills and Denies fever(s) Card Reports no additional complaints and Denies syncope Resp Denies cough GI Denies abdominal pain and Denies heartburn Reports as per HPI and Denies change in libido Neuro Denies syncope Psych Denies change in libido Endo Denies change in libido Physical Exam Const General: cooperative, healthy appearing, comfortable and no acute distress Orientation/consciousness: patient oriented x3 HEENT Face and sinus: Yes normal facial exam Mouth: moist mucous membranes Neck Neck: Yes normal visual inspection, Yes full ROM and Yes trachea midline Chest Chest palpation & inspection: normal inspection of the chest Resp Effort & Inspection: normal respiratory effort, able to speak in complete sentences and no respiratory distress GI Inspection: Yes normal to inspection Back/Spine/Pelvis Cervical Spine: normal cervical lordosis Thoracic/Lumbar Spine: thoracic and lumbar spine normal to inspection Skin General skin exam: no rashes or lesions noted Neuro General: patient oriented x3, gait normal, tone normal and moves all extremities Extrem General: Yes normal to inspection and Yes capillary refill normal Assessment & Plan Assessment & Plan (1) Recurrent UTI: Code(s): N39.0 - Urinary tract infection, site not specified Category: Medical Plan Office cystoscopy Patient Instructions: Imaging studies, laboratory and physical exam results were discussed and reviewed in detail. No major barriers to patient understanding were identified. An opportunity to ask questions regarding the treatment plan was provided. All questions were answered. The patient expressed understanding and agreement with the above treatment plan. The patient is aware they should contact our office by phone for worsening of their current condition or the appearance of new urologic symptoms. Compliance is encouraged with any medications and followup testing that is ordered. It is a privilege to participate in the urologic care of your patient. If you have any questions or concerns regarding treatment for the above conditions, or other urologic issues, please do not hesitate to contact me. The office telephone contact is [phone]. This note is constructed using voice recognition software. While every effort has been made to ensure accuracy bonding supervisor errors may have been included. Yours sincerely, Dr Que Sandoval MD, [facility] - Urology Providers of Expert, Compassionate Care for the Genitourinary System Coding Level of Care Code Est Pt Level 4 (92904) Diagnoses Recurrent UTI N39.0
== END 2023-08-10 15:15 | disposition home or self-care (01) ==
PROVIDERS: PCP Nurse Practitioner Family; Visit Provider Urology
DX: N39.0 Urinary tract infection, site not specified (principal)
CPT/HCPCS: 52000; 99214

== ENCOUNTER → 2023-08-10 14:13 | Outpatient (BNVA) | payer OTHER, SELFPAY | PROVIDERS: PCP Nurse Practitioner Family; Visit Provider Urology | DX: N39.0 Urinary tract infection, site not specified (principal) | CPT/HCPCS: 52000 ==

== ENCOUNTER 2023-08-13 10:11 | Outpatient (REF) | payer OTHER, SELFPAY ==
[2023-08-13 13:17] LABS: MANUAL DIFF FLAG NO
[2023-08-13 13:26] LABS: Basophils Percent Auto 0.2 % (0-2); Hematocrit 45.9 % (42.0-52.0); Hemoglobin 15.6 g/dl (14.0-18.0); Imm Gran Abs Auto 0.02 X10*3/uL (0.00-0.03); Imm Gran Pct Auto 0.4 % (0.0-0.4); Immature Retic Fraction 9.1 % (2.3-13.4); Lymphocytes Absolute Auto 1.2 X10*3/uL (1.2-4.9); Lymphocytes Percent Auto 26.2 % (20-40); Mean Corpuscular Hemoglobin 31.1 pg (27.0-33.0); Mean Corpuscular Volume 91.4 fL (80.0-98.0); Monocytes Absolute Auto 0.5 X10*3/uL (0.1-1.2); Monocytes Percent Auto 10.5 % (2-11); Neutrophils Absolute Auto 2.9 x10*3/uL (2.0-8.3); Neutrophils Percent Auto 62.7 % (45-73); Platelet Count 236 X10*3/uL (160-400); Red Blood Count 5.02 X10*6/uL (4.60-5.80); Retic HGB Equivalent 35.8 pg (30.0-35.0); Reticulocyte Percent 1.3 % (0.5-1.8); Reticulocytes Absolute 0.064 X10*6/uL (0.026-0.095); White Blood Count 4.7 X10*3/uL (4.8-10.8)
[2023-08-13 13:55] LABS: Alanine Aminotransferase 31 U/L (0-40); Albumin Level 4.7 g/dL (3.5-5.0); Alkaline Phosphatase 84 U/L (39-117); Anion Gap 12 (12-20); Aspartate Amino Transferase 23 U/L (5-37); Bilirubin Direct 0.5 mg/dL (0.0-0.5); Bilirubin Total 1.6 mg/dL (0.0-1.0); Blood Urea Nitrogen 15 mg/dL (9-16); Calcium 9.9 mg/dL (8.4-10.2); Carbon Dioxide 31 mmol/L (22-29); Chloride 98 mmol/L (96-108); Estimated Glomerular Filt Rate > 60; Glucose Fasting 94 mg/dL (60-99); Potassium 4.2 mmol/L (3.3-5.1); Sodium 137 mmol/L (135-145); Total Protein 7.1 g/dL (6.5-8.0)
[2023-08-13 14:07] LABS: Appearance Urine Clear; Color Urine Yellow; Glucose Urine UA Negative (Negative); Leukocyte Esterase Urine Negative (Negative); Nitrite Urine Negative (Negative); Urine Blood Negative (Negative); Urine Ketones Negative (Negative); Urine Protein Negative (Neg-Trace)
[2023-08-13 14:12] LABS: Prostate Specific Antigen Scr 3.46 ng/mL (<0.05-4.0)
[2023-08-13 14:16] LABS: Lactate Dehydrogenase 298 U/L (118-273)
[2023-08-15 07:58] LABS: Haptoglobin 149 mg/dL (43-212)
== END 2023-08-13 10:12 | disposition home or self-care (01) ==
LOC: HO.HMGCLDS 10:11
PROVIDERS: PCP Nurse Practitioner Family; Visit Provider Nurse Practitioner Family
DX: Z00.00 Encounter for general adult medical examination without abnormal findings (principal); R17 Unspecified jaundice; Z12.5 Encounter for screening for malignant neoplasm of prostate
CPT/HCPCS: 36415; 80053; 81003; 82248; 83010; 83615; 84153; 85025; 85045

== ENCOUNTER 2023-09-14 12:45 | Outpatient (AMB) | payer OTHER, SELFPAY ==
--- NOTE | 2023-09-14 13:13 | MHC.OFFVIS ---
Intake Visit Reasons: cysto Intake Note: Patient is Present for Cystoscopy Urology Med: None Antibiotic Allergy: None Blood Thinner:Aspirin URO- G Disposable Cystoscope lot: [id number] exp:05/17/26 Allergies acetaminophen [From TYLENOL] Allergy (Unknown, Verified 09/14/23 13:30) FEELS LIKE HE IS GOING TO JUMP OUT OF MY SKIN pollen Allergy (Unknown, Uncoded 09/14/23 13:30) asthma, sinus infection HPI Comments Details: Mitchell is a pleasant male. He is a patient Dr. Cook. He seen for the following urologic conditions - elevated PSA Here for cystoscopy Has had 2 UTI episodes in last year States has effective stream and good bladder emptying Bladder shows mild irritation Background treated with monoclonal antibody for severe eczema Recurring UTI timing matches with starting monoclonal Discussed impact of monoclonal is on immune system. There are many papers published on the impact of rheumatoid compounds on recurrent urinary tract infection Trial high-dose vitamin-C Recurrent UTI 07/07 abdominal ultrasound with normal kidneys. Creatinine 0.9. Elevated PSA Elevated PSA found on annual physical PSA 07/05 4.5, 08/06 2.9 No family history prostate cancer PFSH Medical History Sinusitis, acute Pruritic intertrigo Restless leg syndrome IBS (irritable bowel syndrome) Dyslipidemia Mild intermittent asthma in adult without complication Surgical History Hx of colonoscopy History of inguinal hernia repair History of lipoma Family History Father Cancer of prostate Cancer of thyroid Mother Mitral valve prolapse Skin cancer Breast cancer SVT (supraventricular tachycardia) Sister Atrial septal aneurysm Social History Housing: House Alcohol intake: current Patient Tobacco Use Status: Never used Tobacco e-Cigarette/Vaping Use: Never Used Second Hand Smoke Exposure: No service: No Current occupational status: employed Current occupation: [employer] Current occupational exposures/hazards: No Cognitive needs: No Hearing needs: No Vision needs: No Review of Systems Const Denies chills and Denies fever(s) Card Reports no additional complaints and Denies syncope Resp Denies cough GI Denies abdominal pain and Denies heartburn Reports as per HPI and Denies change in libido Neuro Denies syncope Psych Denies change in libido Endo Denies change in libido Physical Exam Const General: cooperative, healthy appearing, comfortable and no acute distress Orientation/consciousness: patient oriented x3 HEENT Face and sinus: Yes normal facial exam Mouth: moist mucous membranes Neck Neck: Yes normal visual inspection, Yes full ROM and Yes trachea midline Chest Chest palpation & inspection: normal inspection of the chest Resp Effort & Inspection: normal respiratory effort, able to speak in complete sentences and no respiratory distress GI Inspection: Yes normal to inspection Back/Spine/Pelvis Cervical Spine: normal cervical lordosis Thoracic/Lumbar Spine: thoracic and lumbar spine normal to inspection Skin General skin exam: no rashes or lesions noted Neuro General: patient oriented x3, gait normal, tone normal and moves all extremities Extrem General: Yes normal to inspection and Yes capillary refill normal Office Procedures Cystoscopy Consent Discussed risk and benefit or proposed procedure with the patient. Information consent for procedure given to the patient. Discussed technical aspects, risks, benefits and alternatives in full. Addressed all of the patient's questions and concerns regarding the procedure. The patient demonstrated knowledge and understanding. They wish to proceed with this procedure. Preparation The patient was prepped in the usual manner. A education trainer was present and in the room. Genitalia was prepped with betadine solution in a sterile manner. Lidocaine Jelly 2% was placed into the urethra and 16Fr flexible Olympus cystoscope was inserted into the meatus after adequate lubrication. Procedure Cystoscopy performed using a disposable Urovue digital 16 [place] cystoscope. Meatus circumcised Urethra anterior-posterior urethra normal Prostatic Urethra unremarkable Bladder examination with retroflexion of cystoscope Bladder Orifices normal shape and position Bladder Capacity normal Trabeculations grade 1 Cellule Formation - Diverticulum Formation - Mucosal Erythema irritated mucosa, possible chronic cystitis Bladder Tumor - [id number] DISPOSABLE SCOPE URO-G FLEXIBLE SCOPE Procedure code (CPT) selection complete Office Meds lidocaine HCl 2 % mucosal jelly in applicator Performing Provider: Que Sandoavl MD [place] [facility] [place] [facility] Administered by: Sylvester Kemp LPN on 09/14/23 13:38 Dose Route Admin Location Dispensed Lot Number Expiration Date [facility] 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 10 mL intra-urethral 10 mL nitrofurantoin monohydrate/macrocrystals 100 mg capsule Performing Provider: Que Sandoval MD Performing Location: [facility] [place] [facility] Administered by: Sylvester Kemp LPN on 09/14/23 13:38 Dose Route Admin Location Dispensed Lot Number Expiration Date 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 100 mg PO 1 cap naproxen 500 mg tablet Performing Provider: Que Sandoval MD Performing Location: [facility] [place] [facility] Administered by: Sylvester Kemp LPN on 09/14/23 13:38 Dose Route Admin Location Dispensed Lot Number Expiration Date 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 500 mg PO 1 tab Results AMB Urinalysis, Automated UA Leukoctes 0 Yvette/uL Last Edit by Miri Gao Tad on 09/14/23 13:31 UA Nitrite Negative Last Edit by Miri Gao [facility] on 09/14/23 13:31 UA Urobilinogen 0.2 mg/dL Last Edit by Miri Gao A on 09/14/23 13:31 UA Protein 15 mg/dL Last Edit by Miri Gao [facility] on 09/14/23 13:31 UA pH 5.5 Last Edit by Miri Gao A on 09/14/23 13:31 UA Blood 0 Ohllis/uL Last Edit by Miri Gao [facility] on 09/14/23 13:31 UA Specific [place] 1.030 Last Edit by Miri Gao A on 09/14/23 13:31 UA Ketone Positive Last Edit by Miri Gao Tad on 09/14/23 13:31 UA Bilirubin 0 mg/dL Last Edit by Miri Gao A on 09/14/23 13:31 UA Glucose 0 mg/dL Last Edit by Miri Gao [facility] on 09/14/23 13:31 Results Reviewed Results Reviewed: Laboratory Last Values Urine pH (Auto) 5.5 09/14/23 13:30 Specific [place] (Auto) 1.030 09/14/23 13:30 Urine Protein (Auto) 15 mg/dL 09/14/23 13:30 Glucose (UA)(Auto) 0 mg/dL 09/14/23 13:30 Urine Ketones (Auto) Positive 09/14/23 13:30 Urine Blood (Auto) 0 Hollis/uL 09/14/23 13:30 Urine Nitrite (Auto) Negative 09/14/23 13:30 Urine Bilirubin (Auto) 0 mg/dL 09/14/23 13:30 Urine Urobilinogen (Auto) 0.2 mg/dL 09/14/23 13:30 Leukocyte Esterase (Auto) 0 Yvette/uL 09/14/23 13:30 Assessment & Plan Assessment & Plan (1) Recurrent UTI: Code(s): N39.0 - Urinary tract infection, site not specified Category: Medical Plan Six-month follow-up Orders: Orders AMB Urinalysis Automated Today N39.0 - Urinary tract infection, site not specified, Z13.9 - Encounter for screening, unspecified AMB Cystoscopy Today N39.0 - Urinary tract infection, site not specified Medications: New ascorbic acid (vitamin C) 1 g PO DAILY 90 days 90 tabs 1RF N39.0 - Urinary tract infection, site not specified Patient Instructions: Imaging studies, laboratory and physical exam results were discussed and reviewed in detail. No major barriers to patient understanding were identified. An opportunity to ask questions regarding the treatment plan was provided. All questions were answered. The patient expressed understanding and agreement with the above treatment plan. The patient is aware they should contact our office by phone for worsening of their current condition or the appearance of new urologic symptoms. Compliance is encouraged with any medications and followup testing that is ordered. It is a privilege to participate in the urologic care of your patient. If you have any questions or concerns regarding treatment for the above conditions, or other urologic issues, please do not hesitate to contact me. The office telephone contact is [phone]. This note is constructed using voice recognition software. While every effort has been made to ensure accuracy automation machine operator errors may have been included. Yours sincerely, Dr Que Sandoval MD, [facility] - Urology Providers of Expert, Compassionate Care for the Genitourinary System Coding Level of Care Code Est Pt Level 4 (23468) Diagnoses Recurrent UTI N39.0 CPT Codes Cystoscopy - CPT: [id number] ([id number])
== END 2023-09-14 14:13 | disposition home or self-care (01) ==
PROVIDERS: PCP Nurse Practitioner Family; Visit Provider Urology
DX: N39.0 Urinary tract infection, site not specified (principal); Z13.9 Encounter for screening, unspecified
CPT/HCPCS: 52000

== ENCOUNTER → 2023-09-14 12:45 | Outpatient (BNVA) | payer OTHER, SELFPAY | PROVIDERS: PCP Nurse Practitioner Family; Visit Provider Urology | DX: R97.20 Elevated prostate specific antigen [PSA] (principal); N39.0 Urinary tract infection, site not specified | CPT/HCPCS: 52000; 81003 ==

== ENCOUNTER 2023-11-01 15:45 | Outpatient (REF) | payer OTHER, SELFPAY ==
--- NOTE | ~2023-11-01 | MR_ITS ---
EXAMINATION: MRA HEAD WITHOUT AND WITH CONTRAST MRV HEAD WITHOUT AND WITH CONTRAST CLINICAL INFORMATION: Bilateral pulsatile tinnitus. COMPARISON: Brain MRI from 07/31/2023. TECHNIQUE: Routine MRA and MRV of the head was performed. Routine and 3D [id number]-[id number] of the head was performed. Coronal 2D [id number]-so-[id number] SPGR MR venography of the head acquired. Additional postcontrast time resolved (TRICKS) MRA/MRV of the head was obtained without and following the administration of 10 mL of Gadavist intravenous contrast. 3D postprocessing including acquisition of multiplanar MIP reformats are obtained at the technologist workstation and utilized for image interpretation. Stenoses are assessed in accordance with NASCET criteria unless otherwise indicated. FINDINGS: MRA Head: Normal flow-related signal within the anterior circulation without evidence of focal stenosis or occlusion of the intradural internal carotid, middle cerebral, or anterior cerebral arteries. Normal flow-related signal within the posterior circulation without evidence of focal stenosis or occlusion of the intradural vertebral, basilar, superior cerebellar, or posterior cerebral arteries. No demonstrated intradural aneurysms. MRV Head: Maintained flow related signal and opacification of the superior sagittal, straight, transverse, and sigmoid sinuses. There is a 1.1 cm arachnoid granulation extending from the posterior fossa into the torcula with associated small encephalocele of the left cerebral hemisphere. Normal appearance of the cavernous sinus without abnormal filling defects or contrast. Nonspecific stenosis of the right internal jugular vein near the skull base. Maintained opacification of the left internal jugular vein at the skull base. No demonstrated abnormal vascular structures within the inner/middle ears. MR/MR angio head wo con IMPRESSION: 1. Normal MRA of the head. 2. MRV of the head without evidence of cerebral venous sinus thrombosis. 3. Nonspecific stenosis of the right internal jugular vein near the skull base. 4. There is a 1.1 cm arachnoid granulation extending from the posterior fossa into the torcula with associated small encephalocele of the left cerebral hemisphere. This finding is of indeterminate clinical significance.
--- NOTE | ~2023-11-01 | MR_ITS ---
EXAMINATION: MRA HEAD WITHOUT AND WITH CONTRAST MRV HEAD WITHOUT AND WITH CONTRAST CLINICAL INFORMATION: Bilateral pulsatile tinnitus. COMPARISON: Brain MRI from 07/31/2023. TECHNIQUE: Routine MRA and MRV of the head was performed. Routine and 3D [id number] of the head was performed. Coronal 2D [id number]-[id number] SPGR MR venography of the head acquired. Additional postcontrast time resolved (TRICKS) MRA/MRV of the head was obtained without and following the administration of 10 mL of Gadavist intravenous contrast. 3D postprocessing including acquisition of multiplanar MIP reformats are obtained at the technologist workstation and utilized for image interpretation. Stenoses are assessed in accordance with NASCET criteria unless otherwise indicated. FINDINGS: MRA Head: Normal flow-related signal within the anterior circulation without evidence of focal stenosis or occlusion of the intradural internal carotid, middle cerebral, or anterior cerebral arteries. Normal flow-related signal within the posterior circulation without evidence of focal stenosis or occlusion of the intradural vertebral, basilar, superior cerebellar, or posterior cerebral arteries. No demonstrated intradural aneurysms. MRV Head: Maintained flow related signal and opacification of the superior sagittal, straight, transverse, and sigmoid sinuses. There is a 1.1 cm arachnoid granulation extending from the posterior fossa into the torcula with associated small encephalocele of the left cerebral hemisphere. Normal appearance of the cavernous sinus without abnormal filling defects or contrast. Nonspecific stenosis of the right internal jugular vein near the skull base. Maintained opacification of the left internal jugular vein at the skull base. No demonstrated abnormal vascular structures within the inner/middle ears. MR/MR venography head wo/w con IMPRESSION: 1. Normal MRA of the head. 2. MRV of the head without evidence of cerebral venous sinus thrombosis. 3. Nonspecific stenosis of the right internal jugular vein near the skull base. 4. There is a 1.1 cm arachnoid granulation extending from the posterior fossa into the torcula with associated small encephalocele of the left cerebral hemisphere. This finding is of indeterminate clinical significance.
[2023-11-01] MEDS: gadobutroL 10 ML VIAL IVPUSH (17:01)
== END 2023-11-01 15:46 | disposition home or self-care (01) ==
LOC: HO.MRI 15:45
PROVIDERS: PCP Nurse Practitioner Family; Visit Provider Physician Assistant
DX: H93.13 Tinnitus, bilateral (principal)
CPT/HCPCS: 70544; 70546; A9585

== ENCOUNTER 2024-01-30 15:57 | Outpatient (AMB) | payer OTHER, SELFPAY ==
[2024-01-30 15:59] VITALS: BP 122/74; PULSE 80; O2SAT 97; BMI 27.5
--- NOTE | 2024-01-30 15:59 | A.OFFPC_ITS ---
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 Accompanied by: Self / Same As Patient Allergies acetaminophen [From TYLENOL] Allergy (Unknown, Verified 01/30/24 16:51) FEELS LIKE HE IS GOING TO JUMP OUT OF MY SKIN pollen Allergy (Unknown, Uncoded 01/30/24 16:51) asthma, sinus infection Medication List - Last Reconciled 01/30/24 by CARMEN Sewell ascorbic acid (vitamin C) 1 g PO DAILY 90 days aspirin 81 mg PO DAILY atorvastatin 80 mg PO BEDTIME dupilumab mg subcut Q2W eszopiclone 3 mg PO BEDTIME 90 days ezetimibe 10 mg PO DAILY fluticasone propionate 50 mcg/actuation 1 spray intranasal DAILY omeprazole 20 mg PO DAILY polymyxin B sulf-trimethoprim 10,000 unit- 1 mg/mL ophthalmic (eye) ropinirole 2 mg PO BEDTIME triamterene-hydrochlorothiazid 37.5-25 mg 1 tab PO DAILY Tobacco use date assessed: 08/02/23 Dental Screening Dental Screen Date: 08/02/23 HPI 6 Month F/U HPI Details HTN: Blood pressure is stable. Dyslipidemia: Pt is on atorvastatin 80mg and zetia 10mg. Denies chest pain, shortness of breath, headache, and blurred vision. Intermittent dizzy spells, but less than previous. Pt is following up with ENT due to vertigo and tinnitus. He has an upcoming appointment with vascular as well (see MRI: Right I jugular with stenosis). Will order PSA. camille es any urinary weakness, incomplete bladder emptying, nocturia PFSH Medical History Sinusitis, acute Pruritic intertrigo Restless leg syndrome IBS (irritable bowel syndrome) Dyslipidemia Mild intermittent asthma in adult without complication Surgical History Hx of colonoscopy History of inguinal hernia repair History of lipoma Family History Father Cancer of prostate Cancer of thyroid Mother Mitral valve prolapse Skin cancer Breast cancer SVT (supraventricular tachycardia) Sister Atrial septal aneurysm Social History Housing: House Alcohol intake: current Patient Tobacco Use Status: Never used Tobacco e-Cigarette/Vaping Use: Never Used Second Hand Smoke Exposure: No service: No Current occupational status: employed Current occupation: [employer] Current occupational exposures/hazards: No Cognitive needs: No Hearing needs: No Vision needs: No Questionnaire PHQ-9 Over the last 2 weeks, how often have you been bothered by any of the following problems? 1. Little interest or pleasure in doing things: not at all 2. Feeling down, depressed, or hopeless: not at all 3. Trouble falling or staying asleep, or sleeping too much: several days 4. Feeling tired or having little energy: several days 5. Poor appetite or overeating: not at all 6. Feeling bad about yourself - or that you are a failure or have let yourself or your family down: not at all 7. Trouble concentrating on things, such as reading the newspaper or watching television: not at all 8. Moving or speaking so slowly that other people could have noticed. Or the opposite - being so fidgety or restless that you have been moving around a lot more than usual: not at all 9. Thoughts that you would be better off or of hurting yourself in some way: not at all Total score: 2 Depression Screening Interpretation: Negative Depression Screening Done: Yes [id number] - PHQ-9 Billing: Yes Source: Developed by Drs. Moises Schneider, Rajni Cadena, Brian Mcmillan and colleagues, with an educational yee from [employer]. Thrive Questionnaire Date Thrive assessed: 01/29/24 I am a: Patient What is your living situation today?: I have a steady place to live Within the past 12 months, did the food you bought not last and you didn't have the money to get more?: Never true Within the past 12 months, did you worry whether your food would run out before you got money to buy more?: Never true Do you have trouble paying for medicines?: No Do you have trouble getting transportation to medical appointments?: No Do you have trouble paying your heating and electricity bill?: No Do you have trouble taking care of your child, family member or friend?: No Do you have trouble with day-to-day activities such as bathing, preparing meals, shopping, managing finances, etc.?: No Are you currently unemployed and looking for a job?: No Are you interested in more education?: No Please select the resources that you would like help with: None Currently or been in a relationship where the following occur: No concerns reported THRIVE Score: 0 AUDIT C Alcohol Use Questionnaire (AUDIT-C) 1. How often do you have a drink containing alcohol?: 2-3 times a week 2. How many drinks containing alcohol do you have on a typical day when you are drinking?: 1 or 2 3. How often do you have six or more drinks on one occasion?: Never Total Score: 3 Score Reviewed/Action Taken: Yes OSCAR-7 AMB Questionnaire OSCAR-7 Date OSCAR - 7 assessed: 01/30/24 Feeling nervous, anxious, or on edge: 0 = Not at all Not being able to stop or control worryin = Not at all Worrying too much about different things: 0 = Not at all Trouble relaxin = Not at all Being so restless that it is hard to sit still: 0 = Not at all Becoming easily annoyed or irritable: 0 = Not at all Feeling afraid as if something awful might happen: 0 = Not at all Total OSCAR-7 score (0-4 normal; 5-9 mild; 10-14 moderate; 15-21 severe): 0 Source: Developed by Drs. Moises Schneider, Rajni Cadena, Brian Mcmillan and colleagues, with an educational yee from [employer]. OSCAR-7 Assessment Billing OSCAR-7 Assessment Tool: OSCAR-7 Assessment 43064 Review of Systems Const Reports as per HPI Physical exam (Primary Care) Vital Signs: Last Vital Signs Pulse 80 01/30/24 15:59 BP 122/74 01/30/24 15:59 Pulse Ox 97 01/30/24 15:59 Oxygen Delivery Method Room Air 01/30/24 15:59 BMI result Body Mass Index 27.5 Tobacco/Smoking Status: Tobacco use Status Tobacco use date assessed 08/02/23 01/30/24 16:01 Patient Tobacco Use Status Never used Tobacco 01/30/24 16:01 e-Cigarette/Vaping Use Never Used 01/30/24 16:01 PHQ-9: PHQ-9 Score PHQ-9: Total score 2 01/30/24 16:19 Depression Screening Interpretation: Negative Thrive Assessment: Date of Thrive Assessment Date Thrive assessed 01/29/24 01/30/24 16:01 Currently or been in a relationship where the following occur: No concerns reported Const General: cooperative Orientation/consciousness: patient oriented x3 Resp Effort & Inspection: normal respiratory effort Auscultation: clear to auscultation bilaterally Cardio Rate: regular rate Rhythm: regular rhythm Heart sounds: S1 normal heart sound present and S2 normal heart sound present Neuro General: patient oriented x3 Psych Appearance: grossly normal Mental Status: mental status grossly normal Speech and movement: Normal speech and movement present Affect: normal affect Attitude: cooperative Thought process: Normal thought process present Thought content: Normal thought content present Insight: Good insight present (Psych) Judgement: Good judgement present (Psych) Coding Level of Care Code Est Pt Level 3 (93176) Diagnoses Dyslipidemia E78.5 Elevated PSA R97.20 Additional Codes OSCAR-7 Assessment Billing - OSCAR-7 Assessment Tool: OSCAR-7 Assessment 34790 ([id number]) Assessment & Plan Assessment & Plan (1) Dyslipidemia: Code(s): E78.5 - Hyperlipidemia, unspecified Category: Medical Plan: checking lipids (2) Elevated PSA: Code(s): R97.20 - Elevated prostate specific antigen [PSA] Category: Medical Plan: rechecking Plan The patient agreed to the use of a medical collections for this encounter. Scribed for RODRICK Martell-ROSALINA by [facility], on 01/30/2024 at 16:15 EST. Orders: Orders Comprehensive [place]. Panel Fast Today E78.5 - Hyperlipidemia, unspecified TSH reflex Free T4 Today E78.5 - Hyperlipidemia, unspecified Prostate Specific Antigen Scr Today R97.20 - Elevated prostate specific antigen [PSA] Complete Blood Count Auto Diff Today E78.5 - Hyperlipidemia, unspecified UA CC w/rflx Micro + Cult Today E78.5 - Hyperlipidemia, unspecified Lipid Panel Today E78.5 - Hyperlipidemia, unspecified
== END 2024-01-30 16:50 | disposition home or self-care (01) ==
PROVIDERS: PCP Nurse Practitioner Family; Visit Provider Nurse Practitioner Family
DX: E78.5 Hyperlipidemia, unspecified (principal); R97.20 Elevated prostate specific antigen [PSA]

== ENCOUNTER → 2024-01-30 15:57 | Outpatient (BNVA) | payer OTHER, SELFPAY | PROVIDERS: PCP Nurse Practitioner Family; Visit Provider Nurse Practitioner Family | DX: E78.5 Hyperlipidemia, unspecified (principal); R97.20 Elevated prostate specific antigen [PSA]; Z79.899 Other long term (current) drug therapy | CPT/HCPCS: 96127 ==

== ENCOUNTER 2024-01-31 10:18 | Outpatient (REF) | payer OTHER, SELFPAY ==
[2024-01-31 13:21] LABS: MANUAL DIFF FLAG NO
[2024-01-31 13:39] LABS: Basophils Percent Auto 0.2 % (0-2); Hematocrit 45.1 % (42.0-52.0); Hemoglobin 15.2 g/dl (14.0-18.0); Imm Gran Abs Auto 0.02 X10*3/uL (0.00-0.03); Imm Gran Pct Auto 0.4 % (0.0-0.4); Lymphocytes Percent Auto 22.5 % (20-40); Mean Corpuscular HGB Conc 33.7 g/dl (31.0-36.0); Mean Corpuscular Hemoglobin 31.4 pg (27.0-33.0); Mean Corpuscular Volume 93.2 fL (80.0-98.0); Mean Platelet Volume 10.4 fL (9.4-12.4); Monocytes Absolute Auto 0.5 X10*3/uL (0.1-1.2); Monocytes Percent Auto 11.2 % (2-11); Neutrophils Absolute Auto 2.9 x10*3/uL (2.0-8.3); Neutrophils Percent Auto 65.7 % (45-73); Platelet Count 242 X10*3/uL (160-400); Red Blood Count 4.84 X10*6/uL (4.60-5.80); Red Cell Distribution Width 12.4 % (11.0-16.0); White Blood Count 4.5 X10*3/uL (4.8-10.8)
[2024-01-31 13:48] LABS: Appearance Urine Clear; Color Urine Yellow; Glucose Urine UA Negative (Negative); Leukocyte Esterase Urine Negative (Negative); Nitrite Urine Negative (Negative); Urine Blood Negative (Negative); Urine Ketones Negative (Negative); Urine Protein Negative (Neg-Trace)
[2024-01-31 14:14] LABS: Alanine Aminotransferase 40 U/L (0-40); Albumin Level 4.3 g/dL (3.5-5.0); Alkaline Phosphatase 73 U/L (39-117); Anion Gap 10 (12-20); Aspartate Amino Transferase 27 U/L (5-37); Bilirubin Total 1.6 mg/dL (0.0-1.0); Blood Urea Nitrogen 23 mg/dL (9-16); Calcium 9.4 mg/dL (8.4-10.2); Carbon Dioxide 29 mmol/L (22-29); Chloride 103 mmol/L (96-108); Cholesterol 127 mg/dL (<200); Estimated Glomerular Filt Rate > 60; Glucose Fasting 98 mg/dL (60-99); HDL Cholesterol 63 mg/dL (>40); LDL Cholesterol Calculated 55 mg/dL (<100); Potassium 5.2 mmol/L (3.3-5.1); Sodium 137 mmol/L (135-145); TSH reflex Free T4 0.93 uIU/mL (0.32-4.0); Total Protein 6.4 g/dL (6.5-8.0); Triglycerides 48 mg/dL (<150)
[2024-01-31 14:16] LABS: Prostate Specific Antigen Scr 2.91 ng/mL (<0.05-4.0)
== END 2024-01-31 10:19 | disposition home or self-care (01) ==
LOC: HO.HMGCLDS 10:18
PROVIDERS: PCP Nurse Practitioner Family; Visit Provider Nurse Practitioner Family
DX: E78.5 Hyperlipidemia, unspecified (principal); Z12.5 Encounter for screening for malignant neoplasm of prostate
CPT/HCPCS: 36415; 80053; 80061; 81003; 84153; 84443; 85025

== ENCOUNTER 2024-02-13 08:20 | Outpatient (REF) | payer OTHER, SELFPAY ==
[2024-02-13 10:38] LABS: Anion Gap 10 (12-20); Bilirubin Total 0.9 mg/dL (0.0-1.0); Carbon Dioxide 28 mmol/L (22-29); Chloride 107 mmol/L (96-108); Potassium 4.2 mmol/L (3.3-5.1); Sodium 141 mmol/L (135-145)
== END 2024-02-13 08:21 | disposition home or self-care (01) ==
LOC: HO.HMGCLDS 08:20
PROVIDERS: PCP Nurse Practitioner Family; Visit Provider Nurse Practitioner Family
DX: R17 Unspecified jaundice (principal); E87.5 Hyperkalemia
CPT/HCPCS: 36415; 80051; 82247

== ENCOUNTER 2024-03-25 13:58 | Outpatient (AMB) | payer OTHER, SELFPAY ==
[2024-03-25 14:01] VITALS: BMI 27.4
--- NOTE | 2024-03-25 14:01 | MHC.OFFVIS ---
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 Had originally seen ENT after he discovered this from a major hospitalization. He had undergone MRA. He reports no balance issues at the current time. He has a constant right-sided headache and pressure on the right side of the head. He has this mild level of tinnitus. It does not affect his sleeping patterns. He now presents to us for vascular evaluation. [facility] Medical History Sinusitis, acute Pruritic intertrigo Restless leg syndrome IBS (irritable bowel syndrome) Dyslipidemia Mild intermittent asthma in adult without complication Surgical History Hx of colonoscopy History of inguinal hernia repair History of lipoma Family History Father Cancer of prostate Cancer of thyroid Mother Mitral valve prolapse Skin cancer Breast cancer SVT (supraventricular tachycardia) Sister Atrial septal aneurysm Social History Housing: House Alcohol intake: current Patient Tobacco Use Status: Never used Tobacco e-Cigarette/Vaping Use: Never Used Second Hand Smoke Exposure: No service: No Current occupational status: employed Current occupation: [employer] Current occupational exposures/hazards: No Cognitive needs: No Hearing needs: No Vision needs: No Review of Systems Const All systems reviewed & are unremarkable except as noted in HPI and below Reports no additional complaints ENT Reports Normal hearing present Card Denies chest pain, Denies chest pain at rest, Denies chest pain with activity and Denies pedal edema Resp Denies cough GI Denies abdominal pain Musc Denies abnormal gait, Denies muscle cramps and Denies radiating pain into limb Skin/Breast Denies skin ulcer and Denies wounds Neuro Reports Normal hearing present and Denies abnormal gait Psych Reports no additional complaints Physical Exam Vital Signs: BMI result Body Mass Index 27.4 Const General: cooperative, healthy appearing and comfortable Orientation/consciousness: oriented to person, oriented to place and oriented to time HEENT Other: No septal deviation Head: Yes normal to inspection Neck Neck: Yes normal visual inspection Carotids: no bruits Chest Chest palpation & inspection: normal inspection of the chest Resp Effort & Inspection: normal respiratory effort and able to speak in complete sentences Auscultation: clear to auscultation bilaterally, no crackles, no rales, no rhonchi and no wheezes Cardio Rate: regular rate Rhythm: regular rhythm Heart sounds: S1 normal heart sound present and S2 normal heart sound present Bruits: no carotid bruits Peripheral pulses: Peripheral pulses 2+ throughout GI Inspection: Yes normal to inspection Skin Wounds: no wounds Hair: normal Neuro General: oriented to person, oriented to place and oriented to time Cranial nerves: Yes CN's II-XII intact bilaterally and Yes Normal hearing present Cognition (Neuro): normal cognition Motor exam (neuro): 5/5 motor strength present throughout Extrem Other: venous exam: No significant superficial varicosities or spider telangiectasias, minimal edema General: No clubbing, No cyanosis and No edema Psych Appearance: grossly normal Mental Status: mental status grossly normal Speech and movement: Normal speech and movement present Results Reviewed Results Reviewed: MRI reports questionable jugular vein stenosis. Assessment & Plan Assessment & Plan (1) Carotid stenosis, asymptomatic: Code(s): I65.29 - Occlusion and stenosis of unspecified carotid artery Category: Medical Qualifiers: Laterality: bilateral Qualified Code(s): I65.23 - Occlusion and stenosis of bilateral carotid arteries Plan: In short the concern here is pulsatile tinnitus. I do not think that the jugular vein stenosis is of any significance. I have taken the liberty of ordering a carotid ultrasound to rule that out. In addition he does have a septal deviation which may need to be addressed by ENT or Plastic surgery. He will follow up with us after carotid testing. Thank you for allowing us to assist in his care. If there are any questions or concerns please do not hesitate to contact us Orders: Orders US carotid duplex BI 1 Week I65.23 - Occlusion and stenosis of bilateral carotid arteries Coding Level of Care Code New Pt Level 4 (56698) Diagnoses Asymptomatic bilateral carotid artery stenosis I65.23 Laterality: bilateral
--- OUTSIDE RECORDS SUMMARY | 2024-03-26 21:52 | XMS_ITS | Data Portability ---
Author Organization [place] - [facility], Allergy Address [address] [address] Assessment Encounter Date Assessment Date Assessment LastModified by Organization Details LastModified Time 11/06/2023 11/06/2023 Discussed with the patient that his report is not available today from his recent MRA but we have requested this from [place] [facility]. His chronic head pressure likely does represent headache. Fortunately he is feeling better. He will follow up on as needed basis. He will call if the pulsatile tinnitus becomes more prominent or if he develops vertigo or otalgia. [email or web address] Not available 11/06/2023 17:04:00 Plan of Treatment Reminders Order Date Submit Date Provider Last Modified By Organization Details Last Modified Time Details Appointments None recorded. Lab None recorded. Referral None recorded. Procedures None recorded. Surgeries None recorded. Imaging MRI, brain + internal auditory canal, w/wo contrast - MRI, BRAIN + INTERNAL AUDITORY CANAL, W/WO CONTRAST please use 3T MRI 2023 024 [email or web address] [facility] ([facility]), [address] [place], [address], 11:58:30 Medication Orders None recorded. Patient TargetsNo targets recorded. Patient Instructions Encounter Date Encounter Id Patient Instructions Last Modified By Organization Details Last Modified Time 10/02/2023 [id number] 1) Pulsatile tinnitus - potential etiologies reviewed. Patient to utilize the portal to send me results of the imaging he has had performed. I will order MRI brain and IACs and call patient with results 2) Non-pulsatile tinnitus. We reviewed that unfortunately there is no known medical nor surgical cure. I have recommended the use of hearing protection as needed. They should also use masking techniques with background noises that modulate to decrease perception of non-pulsatile tinnitus. Other therapies to improve tolerance of tinnitus were reviewed, to include biofeedback, sound retraining, and cognitive behavioral therapy. We discussed that high stress, low sleep and high caffeine intake can also be contributing factors. A brochure was provided to patient to read at home. 3) Lightheadedness. Reviewed that neurologic and otologic exam were reassuring. Unlikely to be ENT related. Did briefly discuss that his unilateral head pressure in conjunction with his sensation of being off balance could potentially be indicative of vestibular migraine. Patient not open to this diagnosis. Continue to work with PCP. 4) Bilateral neurosensory hearing loss with excellent speech recognition. Discussed amplification not indicated. Noise protection as above. Annual audiometric testing. Reviewed that for all of the above, patient should contact the office immediately with development of true vertigo or noted change in hearing, particularly if sudden in onset. [email or web address] Not available 10/02/2023 15:51:57 Reason for Referral None Reported. Results Created Date Observation Date Name Description Value Unit Range Abnormal Flag Note LastModifiedBy Organization Detail LastModifiedTime 10/02/19 audio gram No observ ation record ed. BARCODE Not Available 2023 15:46:44 10/03/19 24 07/31/2023 MRI, brain + inter nal audit ory canal , w/wo contr ast No observ ation record ed. [address] [facility] [address] [place], [address], 10/08/2023 08:50:03 11/20/19 24 11/01/2023 MR, angio gram, head + neck, w/ contr ast No observ ation record ed. [address] (Imaging) [address] [place], [address], 12/12/2023 09:59:42 Result Notes None recorded. Problems Name Problem SNOMED Code Status Onset Date Resolution Date Notes Provider Name and Address Organization Details Recorded Time Nasal congestio n 55198407 Active 2017 Nasal congestio n; Note: Date Diagnosed : 8 2:22 PM (R09.81) Not Available [facility] 4 02:21:51 Chronic maxillary sinusitis 82658592 Active 2017 Chronic maxillary sinusitis ; Note: Date Diagnosed : 8 2:34 PM (J32.0) Not Available [facility] 4 02:21:39 Deviated nasal septum 500384052 Active 2017 Deviated nasal septum; Note: Date Diagnosed : 8 2:22 PM (J34.2) Not Available [facility] 4 02:20:57 Chronic ethmoidal sinusitis 44816147 Active 2017 Ethmoidal sinusitis NOS; Note: Date Diagnosed : 8 2:35 PM (J32.2) Not Available [facility] 4 02:21:09 Sensorine ural hearing loss of bilateral ears 306268153 Active 2023 HAL CHO [facility] [address], [place], [address] , [place] - [facility] 4 11:26:03 Bilateral tinnitus 54112936100 02 Active 2023 JUAN SALDANA PA-C [address], [place], [address] , [facility] - [facility] 4 12:06:50 Subjectiv e pulsatile tinnitus 65099289133 9104 Active 2023 JUAN SALDANA PA-C [address], [address] , [facility] - [facility] 4 13:07:34 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 26208881563 12928 Active 2023 JUAN SALDANA PA-C [address], [place], [address] , [place] - [facility] 4 13:08:38 Chronic daily headache 00569483067 4102 Active 2023 JUAN SALDANA PA-C [address], [address] , [place] [facility] 4 13:09:05 Lighthead edness 288216927 Active 2023 JUAN SALDANA PA-C [address] [facility] [address], [facility] [place], [address] , [facility] - [facility] 4 13:09:19 Encephalo carmen 86935384 Active 2023 JUAN SALDANA PA-C [address] [facility] [address], [facility] [place], [address] , [facility] - [facility] 09:57:53 Problem Notes None recorded. Procedures Surgical History Date Name Laterality Status Provider Name and Address Organization Details Recorded Time 4 Comp Audio with Tymps & Reflexes (42496 & 85188) completed BRIGHT ANDRES [address] [facility],[place] [address], [place], [address], [facility] - [facility] 10/02/2023 11:34:29 8 hernia repair completed Karson Crow [place] - [facility] 10/02/2023 11:05:10 0 extraction of wisdom tooth completed Karson Crow [place] - [facility] 10/02/2023 11:05:25 Imaging Results Imaging Date Name Status LastModified by Organiz ation Details LastModified Time 10/02/2023 audiogram completed BAR[facility] Information no t available 10/02/2023 15:46:44 07/31/2023 MRI, brain + internal auditory canal, w/wo contrast completed [address] [facility] [address] [place], [address], 10/08/2023 08:50:03 11/01/2023 MR, angiogram, head + neck, w/ contrast completed [address] (Imaging) [address] [place], [address], 12/12/2023 09:59:42 Procedure Notes None recorded. Medical Equipment None Reported. Allergies Allergen ID Allergen Name Allergen Category Reaction Reaction Severity Criticality Documentation Date Start Date Code Code System Note Provider Name and Address Organization Details Recorded Time 51175 Tylenol medicatio n other Not available Not available 08/28/2023 3 RxNorm React ion: unkno wn, unspe cifie d;; Not Available [facility] 00:52:11 Medications Name Sig Start Date Stop Date Status Note LastModified by Organization Details LastModified Time ropinirole 1 mg tablet 2017 active Medication ID: [id number] Dur ation Value: 30 Brand Name: ropinirole Send Method: E-Prescrib ed Subs Allowed: subs OK Special Instructio n: TK 1 T PO 1 TO 3 HOURS BEFORE BEDTIME Me dicationGe nericName: ropinirole Not Available Not Available Not Available atorvastati n 10 mg tablet 2017 active Medication ID: [id number] Dur ation Value: 30 Brand Name: atorvastat in Send Method: E-Prescrib ed Subs Allowed: subs OK Special Instructio n: TK 1 T PO QD Medicat ionGeneric Name: atorvastat in Not Available Not Available Not Available Advair Diskus 250 mcg-50 mcg/dose powder for inhalation 10/01 completed Medication ID: [id number] Dur ation Value: 30 Brand Name: Advair Diskus Sen d Method: E-Prescrib ed Subs Allowed: subs OK Special Instructio n: INL 1 PUFF PO BID Medica tionGeneri cName: Advair Diskus Med ication ID: [id number] Dur ation Value: 30 Brand Name: Advair Diskus Sen d Method: E-Prescrib ed Subs Allowed: subs OK Special Instructio n: INL 1 PUFF PO BID Medica tionGeneri cName: Advair Diskus Not Available Not Available Not Available gabapentin 300 mg capsule 10/01 completed Medication ID: [id number] Dur ation Value: 90 Brand Name: gabapentin Send Method: E-Prescrib ed Subs Allowed: subs OK Special Instructio n: TK 2 CS PO TID Medica tionGeneri cName: gabapentin Medicatio n ID: [id number] Dur ation Value: 90 Brand Name: gabapentin Send Method: E-Prescrib ed Subs Allowed: subs OK Special Instructio n: TK 2 CS PO TID Medica tionGeneri cName: gabapentin Not Available Not Available Not Available montelukast 10 mg tablet 11/05 completed Medication ID: [id number] Dur ation Value: 30 Brand Name: montelukas t Send Method: E-Prescrib ed Subs Allowed: subs OK Special Instructio n: TK 1 T PO QD IN THE NICOLE Medica tionGeneri cName: montelukas t Medicati on ID: [id number] Dur ation Value: 30 Brand Name: montelukas t Send Method: E-Prescrib ed Subs Allowed: subs OK Special Instructio n: TK 1 T PO QD IN THE NICOLE Medica tionGeneri cName: montelukas t Not Available Not Available Not Available zolpidem 10 mg tablet 2017 active Medication ID: [id number] Dur ation Value: 30 Brand Name: zolpidem S end Method: E-Prescrib ed Subs Allowed: subs OK Special Instructio n: TK 1 T PO HS PRN Medica tionGeneri cName: zolpidem Not Available Not Available Not Available ProAir HFA 90 mcg/actuati on aerosol inhaler 11/05 completed Medication ID: [id number] Dur ation Value: 16 Brand Name: ProAir HFA Send Method: E-Prescrib ed Subs Allowed: subs OK Special Instructio n: INL 2 PUFFS PO Q 4 H PRN Medica tionGeneri cName: ProAir HFA Medica tion ID: [id number] Dur ation Value: 16 Brand Name: ProAir HFA Send Method: E-Prescrib ed Subs Allowed: subs OK Special Instructio n: INL 2 PUFFS PO Q 4 H PRN Medica tionGeneri cName: ProAir HFA Not Available Not Available Not Available Vitals Date Recorded Body height Body mass index (BMI) Body weight Provider Name and Address Organization Details Last Updated DateTime 11/06/2023 193.04 cm 26.8 kg/m2 14166.32 g Felicita Soni [place] - [facility] 11/06/2023 14:15:10 Social History None recorded. Functional Status None recorded. Mental Status None recorded. Family History Nothing Reported. Medical History Condition Response Asthma Y GERD/Reflux Y Past Encounters Encounter ID Performer Location Encounter Start Date Encounter Closed Date Diagnosis/Indication Diagnosis SNOMED-CT Code Diagnosis ICD10 Code [id number] JUAN SALDANA PA-C [facility] [address] [address] 10/02/2023 10:38:51 10/02/2023 12:20:12 Sensorineural hearing loss of bilateral ears 851772300 H90.3 Bilateral tinnitus 34008 86072 102 H93.13 Bilateral subjective pulsatile tinnitus of ears 9180166854 847356 H93.A3 Chronic da feliz headache 2649360278 54989 R51.9 Lightheadedness 31063939 8 R42 [id number] MAC HDZ MD [facility] [address] [address] 11/06/2023 14:08:32 11/06/2023 15:16:06 Bilateral subjective pulsatile tinnitus of ears 2081693208 170468 H93.A3 Chronic da feliz headache 2212350958 98679 R51.9 Health Concerns Section Related Observation LastModified by Organization Detai ls LastModified Time None Recorded Concern Status LastModified by Organization Details LastModified Time None Recorded Advance Directives Directive None Recorded Payers Encounter Date Sequence Insurance Name Policy Number Policy [place] Covered Member ID [place] Member ID Guarantor Name 10/02/2023 1 [employer] [facility] (EPO) [id number] Jackeline Villagomez [id number] Mitchell Villagomez 11/06/2023 1 [employer] [facility] (EPO) [id number] Jackeline Villagomez [id number] Mitchell Villagomez Notes Date Note Type Note Provider Name and Address Organization Details Recorded Time 10/02/2023 text/html 58 year old male presents for evaluation of 6 month history of light-headedness. In April he developed a UTI. Also had very high blood pressure, conjunctivitis. Was sick for 10 weeks. He was given a lot of antibiotics for this. Now feels great and back to normal in most regards but with constant high pitched tinnitus in the right ear, and pulsatile tinnitus as well. Intermittent lightheadedness. He had an MRI that showed no aneurysm. That was 6 weeks ago at [place]. Had a sinus scan at PCP's office this spring that showed the right sinus was small. The lightheadedness is much better. Pressure at the right hindu and the top of the head on the right has been present for as long as he can remember and has not changed since onset of the lightheadedness. Defines dizziness as lightheadedness and sometimes feels off-balance. Never feels like he is spinning. Never feels that he is being pushed nor pulled. Occurs intermittently throughout the day every day, persisting for up to a few minutes. Cannot identify a trigger or an alleviating factor. Not positional. Thinks maybe better when well hydrated. Not immediately upon rising, though that happens too. There are no associated symptoms. Head pressure, hearing, tinnitus, and pulsatile tinnitus do not change and there is no aural pressure. No visual change, photosensitivity, nausea, confusion, slurred speech, no facial nor extremity paralysis, weakness, nor paresthesias. He has discussed this with several providers who do not know why this is happening. He has started new medications since onset without any improvement in symptoms. He was diagnosed with migraines as a teen. He emphatically states that the constant pressure in the head is not a headache. JUAN SALDANA PA-C [address], [address], [place] - [facility] 10/02/2023 15:52:23 11/06/2023 text/html 58 year old male presents for re-evaluation. He is status post MRA at [facility]. He reports that his balance is back to baseline and he is feeling much better. He still reports pulsatile tinnitus. He reports pressure in the right side of the head that is constant and unchanged. He does not feel this is a headache. He has started a low dose medication for blood pressure but it has not changed the tinnitus or the head pressure. He has been able to return to the gym without incident. MAC HDZ MD [address] [facility], [address], [place] - [facility] 11/08/2023 17:05:48
--- OUTSIDE RECORDS SUMMARY | 2024-03-26 21:53 | XMS_ITS ---
Author Name [facility] Organization Unknown History of Medication Use Medication Directions Dispensed Refills Start Date End Date Stat OMEprazole (PriLOSEC) 20 MG capsule 04/27/2023 active atorvastatin (LIPITOR) 80 MG tablet Take 80 mg by mouth nightly. 04/27/2023 active eszopiclone (LUNESTA) 3 MG tablet 04/27/2023 active fluticasone (FloNASE) 50 mcg/spray nasal spray 04/27/2023 active Dupixent 300 MG/2ML prefilled syringe 04/27/2023 active trimethoprim-polymyxi n b (POLYTRIM) ophthalmic solution Administer 1 drop to the right eye every 4 (four) hours. 04/27/2023 active rOPINIRole (REQUIP) 2 MG tablet 04/27/2023 active Problems Problem Status Onset Date Problem Type Date of Resolution Source Acute conjunctivitis of both eyes, unspecified acute conjunctivitis type [facility]
== END 2024-03-25 14:52 | disposition home or self-care (01) ==
PROVIDERS: PCP Nurse Practitioner Family; Visit Provider Surgery Vascular Surgery
DX: I65.23 Occlusion and stenosis of bilateral carotid arteries (principal)
CPT/HCPCS: 99204

== ENCOUNTER → 2024-03-25 13:58 | Outpatient (BNVA) | payer OTHER, SELFPAY | PROVIDERS: PCP Nurse Practitioner Family; Visit Provider Surgery Vascular Surgery ==

== ENCOUNTER 2024-05-02 10:09 | Outpatient (AMB) | payer OTHER, SELFPAY ==
--- NOTE | 2024-05-02 10:12 | A.OFFVIS_ITS ---
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 He is a patient Dr. Cook. He seen for the following urologic conditions - elevated PSA Follow-up from vitamin-C use 1 mg daily for recurrent UTI UA negative No further UTIs since starting daily vitamin-C We will continue to use as long as receives biologics for eczema treatment One year follow-up Recurrent UTI 07/07 abdominal ultrasound with normal kidneys. Creatinine 0.9. Prior cystoscopy showed mild irritation. Was receiving monoclonal antibody for severe eczema Recurrent UTI matched dosage of monoclonal is Trialed high-dose vitamin-C Elevated PSA Elevated PSA found on annual physical PSA 07/05 4.5, 08/06 2.9 No family history prostate cancer PFSH Medical History Sinusitis, acute Pruritic intertrigo Restless leg syndrome IBS (irritable bowel syndrome) Dyslipidemia Mild intermittent asthma in adult without complication Surgical History Hx of colonoscopy History of inguinal hernia repair History of lipoma Family History Father Cancer of prostate Cancer of thyroid Mother Mitral valve prolapse Skin cancer Breast cancer SVT (supraventricular tachycardia) Sister Atrial septal aneurysm Social History Housing: House Alcohol intake: current Patient Tobacco Use Status: Never used Tobacco e-Cigarette/Vaping Use: Never Used Second Hand Smoke Exposure: No service: No Current occupational status: employed Current occupation: [employer] Current occupational exposures/hazards: No Cognitive needs: No Hearing needs: No Vision needs: No Review of Systems Const Denies chills and Denies fever(s) Card Reports no additional complaints and Denies syncope Resp Denies cough GI Denies abdominal pain and Denies heartburn Reports as per HPI and Denies change in libido Neuro Denies syncope Psych Denies change in libido Endo Denies change in libido Physical Exam Const General: cooperative, healthy appearing, comfortable and no acute distress Orientation/consciousness: patient oriented x3 HEENT Face and sinus: Yes normal facial exam Mouth: moist mucous membranes Neck Neck: Yes normal visual inspection, Yes full ROM and Yes trachea midline Chest Chest palpation & inspection: normal inspection of the chest Resp Effort & Inspection: normal respiratory effort, able to speak in complete sentences and no respiratory distress GI Inspection: Yes normal to inspection Back/Spine/Pelvis Cervical Spine: normal cervical lordosis Thoracic/Lumbar Spine: thoracic and lumbar spine normal to inspection Skin General skin exam: no rashes or lesions noted Neuro General: patient oriented x3, gait normal, tone normal and moves all extremities Extrem General: Yes normal to inspection and Yes capillary refill normal Office Procedures Post Void Residual Post Residual Void Post Void Residual (PVR): 0 [id number] Void Residual by ultrasound Results AMB Urinalysis, Automated UA Leukoctes 0 Yvette/uL Last Edit by JOHNNY Granados on 05/02/24 10:23 UA Nitrite Negative Last Edit by JOHNNY Granados on 05/02/24 10:23 UA Urobilinogen 0.2 mg/dL Last Edit by JOHNNY Granados on 05/02/24 10:2 3 UA Protein 15 mg/dL Last Edit by JOHNNY Granados on 05/02/24 10:23 UA pH 6.0 Last Edit by JOHNNY Granados on 05/02/24 10:23 UA Blood 0 Hollis/uL Last Edit by JOHNNY Granados on 05/02/24 10:23 UA Specific [place] 1.025 Last Edit by JOHNNY Granados on 05/02/24 10: 23 UA Ketone Positive Last Edit by JOHNNY Granados on 05/02/24 10:23 UA Bilirubin 0 mg/dL Last Edit by JOHNNY Granados on 05/02/24 10:23 UA Glucose 0 mg/dL Last Edit by JOHNNY Granados on 01/17/25 10:23 Results Reviewed Results Reviewed: Laboratory Last Values Urine pH (Auto) 6.0 05/02/24 10:23 Specific [place] (Auto) 1.025 05/02/24 10:23 Urine Protein (Auto) 15 mg/dL 05/02/24 10:23 Glucose (UA)(Auto) 0 mg/dL 05/02/24 10:23 Urine Ketones (Auto) Positive 05/02/24 10:23 Urine Blood (Auto) 0 Hollis/uL 05/02/24 10:23 Urine Nitrite (Auto) Negative 05/02/24 10:23 Urine Bilirubin (Auto) 0 mg/dL 05/02/24 10:23 Urine Urobilinogen (Auto) 0.2 mg/dL 05/02/24 10:23 Leukocyte Esterase (Auto) 0 Yvette/uL 05/02/24 10:23 Assessment & Plan Assessment & Plan (1) Recurrent UTI: Code(s): N39.0 - Urinary tract infection, site not specified Category: Medical Plan 1 year follow-up Orders: Orders AMB Urinalysis Automated Today Z13.9 - Encounter for screening, unspecified Patient Instructions: Imaging studies, laboratory and physical exam results were discussed and reviewed in detail. No major barriers to patient understanding were identified. An opportunity to ask questions regarding the treatment plan was provided. All questions were answered. The patient expressed understanding and agreement with the above treatment plan. The patient is aware they should contact our office by phone for worsening of their current condition or the appearance of new urologic symptoms. Compliance is encouraged with any medications and followup testing that is ordered. It is a privilege to participate in the urologic care of your patient. If you have any questions or concerns regarding treatment for the above conditions, or other urologic issues, please do not hesitate to contact me. The office telephon e contact is [phone]. This note is constructed using voice recognition software. While every effort has been made to ensure accuracy hot air furnace installer and repairer errors may have been included. Yours sincerely, Dr Que Sandoval MD, [facility] - Urology Providers of Expert, Compassionate Care for the Genitourinary System Coding Level of Care Code Est Pt Level 3 (04151) Diagnoses Recurrent UTI N39.0 CPT Codes Post Residual Void - PVR CPT Code: 76628-Tjdd Void Residual by ultrasound ([id number])
== END 2024-05-02 11:01 | disposition home or self-care (01) ==
PROVIDERS: PCP Nurse Practitioner Family; Visit Provider Urology
DX: N39.0 Urinary tract infection, site not specified (principal); Z13.9 Encounter for screening, unspecified
CPT/HCPCS: 99213

== ENCOUNTER → 2024-05-02 10:09 | Outpatient (BNVA) | payer OTHER, SELFPAY | PROVIDERS: PCP Nurse Practitioner Family; Visit Provider Urology | DX: N39.0 Urinary tract infection, site not specified (principal); R97.20 Elevated prostate specific antigen [PSA] | CPT/HCPCS: 51798; 81003 ==

== ENCOUNTER → 2024-05-21 15:15 | Outpatient (REF) | payer OTHER, SELFPAY ==
--- NOTE | ~2024-05-21 | US_ITS ---
EXAMINATION: US EXTRACRANIAL CAROTID DUPLEX, BILATERAL CLINICAL INFORMATION: Occlusion and stenosis of bilateral carotid arteries. COMPARISON: None available. TECHNIQUE: Real-time ultrasound and Doppler techniques (integrating B-mode 2-D vascular images, Doppler spectral analysis and color-flow Doppler imaging) were utilized to interrogate the extracranial carotid arteries, the vertebral arteries and proximal subclavian arteries bilaterally. The degree of stenosis is determined by criteria similar to NASCET. FINDINGS: Right Side: 1. There is hard atherosclerotic plaque seen in the bifurcation/proximal ICA region. 2. The common carotid artery PSV proximally is 123 cm/s and distally 96.3 cm/s. 3. The proximal internal carotid artery velocities are 115 cm/s systolic and 24.5 cm/s diastolic. 4. The proximal external carotid artery PSV is 200 cm/s. 5. The vertebral artery shows antegrade flow. 6. The subclavian artery waveforms are normal. Peak systolic velocities to 61 cm/second Left Side: 1. There is hard an soft atherosclerotic plaque seen in the bifurcation/proximal ICA region. 2. The common carotid artery PSV proximally is 112 cm/s and distally 115 cm/s. 3. The proximal internal carotid artery velocities are 95.3 cm/s systolic and 29.4 cm/s diastolic. 4. The proximal external carotid artery PSV is 198 cm/s. 5. The vertebral artery shows antegrade flow. 6. The subclavian artery waveforms are normal. US/US carotid duplex BI IMPRESSION: 1. RIGHT: 0-49% range stenosis 2. LEFT: 0-49% stenosis 3. Elevated bilateral external carotid and subclavian arteries likely secondary to stenosis 3. Normal anterior flow seen in both vertebral arteries. Electronically signed by: Tavares Youngblood MD 05/22/2024 07:39 AM EST
--- OUTSIDE RECORDS SUMMARY | 2024-05-21 16:12 | XMS_ITS | Data Portability ---
Author Organization [place] - [facility], Allergy Address [address] [address] Assessment Encounter Date Assessment Date Assessment LastModified by Organization Details LastModified Time 11/06/2023 11/06/2023 Discussed with the patient that his report is not available today from his recent MRA but we have requested this from [facility]. His chronic head pressure likely does [...] CONTRAST please use 3T MRI 2023 024 [facility] ([facility]), [address] [place], [address], 11:58:30 Medication Orders None recorded. Patient TargetsNo targets recorded. Patient Instructions Encounter Date Encounter Id Patient Instructions Last Modified By Organization Details Last Modified Time 10/02/2023 [id number] 1) Pulsatile tinnitus - potential etiologies reviewed. [...] in hearing, particularly if sudden in [place]. [place] [id number] Not available 10/02/2023 15:51:57 Reason for Referral None Reported. Results Created Date Observation Date Name Description Value Unit Range Abnormal Flag Note LastModifiedBy Organization Detail LastModifiedTime 10/02/19 audio gram No observ ation record ed. BARCODE Not Available 2023 15:46:44 10/03/19 24 07/31/2023 MRI, brain + inter nal audit ory canal , w/wo contr ast No observ ation record ed. [address] [facility] [address] [place], [address], 10/08/2023 08:50:03 11/20/19 24 11/01/2023 MR, angio gram, head + neck, w/ contr ast No observ ation record ed. [address] (Imaging) [address] [place], [address], 12/12/2023 09:59:42 Result Notes None recorded. Problems Name Problem SNOMED Code Status Onset Date Resolution Date Notes Provider Name and Address Organization Details Recorded Time Nasal congestio n 08589481 Active 2017 Nasal congestio n; Note: Date Diagnosed : 8 2:22 PM (R09.81) Not Available [facility] 4 02:21:51 Chronic maxillary sinusitis 07016952 Active 2017 Chronic maxillary sinusitis ; Note: Date Diagnosed : 8 2:34 PM (J32.0) Not Available [facility] 4 02:21:39 Deviated nasal septum 061457531 Active 2017 Deviated nasal septum; Note: Date Diagnosed : 8 2:22 PM (J34.2) Not Available [facility] 4 02:20:57 Chronic ethmoidal sinusitis 51276818 Active 2017 Ethmoidal sinusitis NOS; Note: Date Diagnosed : 8 2:35 PM (J32.2) Not Available [facility] 4 02:21:09 Sensorine ural hearing loss of bilateral ears 312492907 Active 2023 [facility] [address], [place], [address] , [place] - [facility] 4 11:26:03 Bilateral tinnitus 25141241218 02 Active 2023 JUAN SALDANA PA-C [address], [place], [address] , [facility] - [facility] 4 12:06:50 Subjectiv e pulsatile tinnitus 39159466182 9104 Active 2023 JUAN SALDANA PA-C [address], [address] , [facility] - [facility] 4 13:07:34 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 81483510128 97271 Active 2023 JUAN SALDANA PA-C [address], [place], [address] , [place] - [facility] 4 13:08:38 Chronic daily headache 39780230779 4102 Active 2023 JUAN SALDANA PA-C [address], [address] , [place] - [facility] 4 13:09:05 Lighthead edness 317390023 Active 2023 JUAN SALDANA PA-C [address] [facility],[place] [address], [facility] [place], [address] , [facility] - [facility] 4 13:09:19 Encephalo carmen 60407540 Active 2023 JUAN SALDANA PA-C [address] [facility],[place] [address], [facility] [place], [address] , [facility] - [facility] 09:57:53 Problem Notes None recorded. Procedures Surgical History Date Name Laterality Status Provider Name and Address Organization Details Recorded Time 4 Comp Audio with Tymps & Reflexes (99351 & 98158) completed BRIGHT ANDRES [address] [facility],[place] [address], [place], [address], [facility] - [facility] 10/02/2023 11:34:29 8 hernia repair completed Karson Crow [place] - [facility] 10/02/2023 11:05:10 0 extraction of wisdom tooth completed Karson Crow [place] - [facility] 10/02/2023 11:05:25 Imaging Results Imaging Date Name Status LastModified by Organiz ation Details LastModified Time 10/02/2023 audiogram completed BARCODE Information no t available 10/02/2023 15:46:44 07/31/2023 MRI, brain + internal auditory canal, w/wo contrast completed [address] [facility] [address] [facility] [address] [place], [address], 10/08/2023 08:50:03 11/01/2023 MR, angiogram, head + neck, w/ contrast completed [address] (Imaging) [address] [place], [address], 12/12/2023 09:59:42 Procedure Notes None recorded. Medical Equipment None Reported. Allergies Allergen ID Allergen Name Allergen Category Reaction Reaction Severity Criticality Documentation Date Start Date Code Code System Note Provider Name and Address Organization Details Recorded Time 31497 Tylenol medicatio n other Not available Not available 08/28/2023 3 RxNorm React ion: unkno wn, unspe cifie d;; Not Available [facility] 00:52:11 Medications Name Sig Start Date Stop Date Status Note LastModified by Organization Details LastModified Time ropinirole 1 mg tablet 2017 active Medication ID: [id number] Dur ation Value: 30 Brand Name: ropinirole Send Method: E-Prescrib ed Subs Allowed: subs OK Special Instructio n: TK 1 T PO 1 TO 3 HOURS BEFORE BEDTIME Me dicationGe nericName: ropinirole Not Available Not Available Not Available atorvastati n 10 mg tablet 2017 active Medication ID: [id number] Dur ation Value: 30 Brand Name: atorvastat in Send Method: E-Prescrib ed Subs Allowed: subs OK Special Instructio n: TK 1 T PO QD Medicat ionGeneric Name: atorvastat in Not Available Not Available Not Available Advair Diskus 250 mcg-50 mcg/dose powder for inhalation 10/01 completed Medication ID: [id number] Dur ation Value: 30 Brand Name: Advair Diskus Sen d Method: E-Prescrib ed Subs Allowed: subs OK Special Instructio n: INL 1 PUFF PO BID Medica tionGeneri cName: Advair Diskus Med ication ID: [id number] Dur ation Value: 30 Brand Name: Advair Diskus Sen d Method: E-Prescrib ed Subs Allowed: subs OK Special Instructio n: INL 1 PUFF PO BID Medica tionGeneri cName: Advair Diskus Not Available Not Available Not Available gabapentin 300 mg capsule 10/01 completed Medication ID: [id number] Dur ation Value: 90 Brand Name: gabapentin Send Method: E-Prescrib ed Subs Allowed: subs OK Special Instructio n: TK 2 CS PO TID Medica tionGeneri cName: gabapentin Medicatio n ID: [id number] Dur ation Value: 90 Brand Name: gabapentin Send Method: E-Prescrib ed Subs Allowed: subs OK Special Instructio n: TK 2 CS PO TID Medica tionGeneri cName: gabapentin Not Available Not Available Not Available montelukast 10 mg tablet 11/05 completed Medication ID: [id number] Dur ation Value: 30 Brand Name: montelukas t Send Method: E-Prescrib ed Subs Allowed: subs OK Special Instructio n: TK 1 T PO QD IN THE [place]ICOLE Medica tionGeneri cName: montelukas t Medicati on ID: [id number] Dur ation Value: 30 Brand Name: montelukas t Send Method: E-Prescrib ed Subs Allowed: subs OK Special Instructio n: TK 1 T PO QD IN THE [place] Medica tionGeneri cName: montelukas t Not Available Not Available Not Available zolpidem 10 mg tablet 2017 active Medication ID: [id number] Dur ation Value: 30 Brand Name: zolpidem S end Method: E-Prescrib ed Subs Allowed: subs OK Special Instructio n: TK 1 T PO HS PRN Medica tionGeneri cName: zolpidem Not Available Not Available Not Available ProAir HFA 90 mcg/actuati on aerosol inhaler 11/05 completed Medication ID: [id number] Dur ation Value: 16 Brand Name: ProAir HFA Send Method: E-Prescrib ed Subs Allowed: subs OK Special Instructio n: INL 2 PUFFS PO Q 4 H PRN Medica tionGeneri cName: ProAir HFA Medica tion ID: [id number] Dur ation Value: 16 Brand Name: ProAir HFA Send Method: E-Prescrib ed Subs Allowed: subs OK Special Instructio n: INL 2 PUFFS PO Q 4 H PRN Medica tionGeneri cName: ProAir HFA Not Available Not Available Not Available Vitals Date Recorded Body height Body mass index (BMI) Body weight Provider Name and Address Organization Details Last Updated DateTime 11/06/2023 193.04 cm 26.8 kg/m2 45352.32 g Felicita Soni [place] - [facility] 11/06/2023 14:15:10 Social History None recorded. Functional Status None recorded. Mental Status None recorded. Family History Nothing Reported. Medical History Condition Response Asthma Y GERD/Reflux Y Past Encounters Encounter ID Performer Location Encounter Start Date Encounter Closed Date Diagnosis/Indication Diagnosis SNOMED-CT Code Diagnosis ICD10 Code Diagnosis Note [id number] JUAN SALDANA PA-C [facility] [address] [address] 10/02/2023 10:38:51 10/02/2023 12:20:12 Sensorineural hearing loss of bilateral ears 937740065 H90.3 Audiologic al evaluation results:Ri ght ear:{{Norm al sloping* M ild Modera te Moderat gabby-severe Severe Pr ofound Nor mal auditory thresholds }} to {{mild mod erate mode rately-sev ere* sever e profound with}} {{sensorin eural hearing loss with condu ctive hearing loss with mixed hearing loss with senso rineural hearing loss with conductive components at 2k and 4kHz and#}} {{excellen t* good fa ir poor no t measurable }} word recognitio n.Left ear:{{Norm al sloping* M ild Modera te Moderat gabby-severe Severe Pr ofound Nor mal auditory thresholds }} to {{mild mod erate mode rately-sev ere* sever e profound with}} {{sensorin eural hearing loss with* cond uctive hearing loss with mixed hearing loss with}} {{excellen t* good fa ir poor no t measurable }} word recognitio n.Tympanom etry:Right Ear:{{Type A* Type As Type Ad Type C Type C, shallow & rounded Ty pe B Type B with large volume Cou ld not maintain a hermetic seal}}Left Ear:{{Type A* Type As Type Ad Type C Type C, shallow & rounded Ty pe B Type B with large volume Cou ld not maintain a hermetic seal}} Present ipsi and contra reflexes, AU, with the exception of an absent ipsi response at 4kHz, AD. Bilateral tinnitus 94065 03471 102 H93.13 Bilateral subjective pulsatile tinnitus of ears 4008027132 321078 H93.A3 Chronic da feliz headache 4507329042 19735 R51.9 Lightheadedness 71802511 8 R42 [id number] MAC HDZ MD [facility] [address] [address] 11/06/2023 14:08:32 11/06/2023 15:16:06 Bilateral subjective pulsatile tinnitus of ears 0976286271 313655 H93.A3 Chronic da feliz headache 9504294874 00906 R51.9 Health Concerns Section Related Observation LastModified by Organization Krysta castillo LastModified Time None Recorded Concern Status LastModified by Organization Details LastModified Time None Recorded Advance Directives Directive None Recorded Payers Encounter Date Sequence Insurance Name Policy Number Policy [place] Covered Member ID [place] Member ID Guarantor Name 10/02/2023 1 [employer] [place] [id number] Jackeline Villagomez [id number] Mitchell Villagomez 11/06/2023 1 [employer] [place] [id number] Jackeline Allen Villagomez [id number] Mitchell Villagomez Notes Date Note Type [...] aneurysm. That was 6 weeks ago at [facility]. Had a sinus scan at PCP's office this spring that showed the right sinus was small. The lightheadedness is much better. Pressure at the right anglican and the top of the head on [...] not a headache. JUAN SALDANA PA-C [address] [facility],[place] [address], [place], [address], [place] - [facility] 10/02/2023 15:52:23 11/06/2023 text/html 58 year old male presents for re-evaluation. He is status post MRA at [facility]. He reports that his balance is back [...] gym without incident. MAC HDZ MD [address] [facility],[place] [address], [place], [address], [place] - [facility] 11/08/2023 17:05:48
--- OUTSIDE RECORDS SUMMARY | 2024-05-21 16:12 | XMS_ITS | Clinical Summary ---
Author Organization [facility] Address [address] [place] [address] Care Team Providers Care Traffic Operations Manager Name Role Phone Adrian Kamara MD Primary Care Provider Allergies No known active allergies Medications Medication Sig Dispensed Refills Start Date End Date Status atorvastatin (LIPITOR) 80 MG tablet Take 80 mg by mouth nightly. 02/19/2023 Active Dupixent 300 MG/2ML prefilled syringe 04/25/2023 Active rOPINIRole (REQUIP) 2 MG tablet 04/23/2023 Active OMEprazole (PriLOSEC) 20 MG capsule 04/23/2023 Active fluticasone (FloNASE) 50 mcg/spray nasal spray 03/12/2023 Active eszopiclone (LUNESTA) 3 MG tablet 02/21/2023 Active trimethoprim-polymyxin b (POLYTRIM) ophthalmic solutionIndications:Ba cterial conjunctivitis of right eye Administer 1 drop to the right eye every 4 (four) hours. 10 mL 04/25/2023 Active Social History Tobacco Use Types Packs/Day Years Used Date Smoking Tobacco: Never Assessed Sex and Gender Information Value Date Recorded Sex Assigned at Not on file Gender Identity Not on file Sexual Orientation Not on file Last Filed Vital Signs Vital Sign Reading Time Taken Comments Blood Pressure 176/83 04/27/2023 4:20 PM EST Pulse 93 04/27/2023 4:20 PM EST Temperature 37.1 ??C (98.7 ??F) 04/27/2023 4:20 PM ES T Respiratory Rate 12 04/25/2023 10:26 AM EST Oxygen Saturation 96% 04/27/2023 4:20 PM EST Inhaled Oxygen Concentration - - Weight 109 kg (240 lb) 04/27/2023 4:20 PM EST Height 193 cm (6' 4 ) 04/27/2023 4:20 PM EST Body Mass Index 29.21 04/27/2023 4:20 PM EST Plan of Treatment Health Maintenance Due Date Last Done Comments Hepatitis C Virus Screening 1965 COVID-19 Vaccine (#1) 1968 Pneumococcal Vaccine: Pediat lis (0-5 Years) and At-Risk Patients (6 to 49 Years) (1 of 2 - PCV) 1969 HIV Screening 1976 DTaP/Tdap/Td Vaccines (1 - Tdap) 1982 Pneumococcal Vaccines 50+ (1 of 2 - PCV) 1982 Zoster (Shingles) Vaccine (1 of 2) 1982 Colonoscopy 2008 RSV Vaccine 60 years and old er and Patients (1 - Risk 60-74 years 1-dose series) 2023 Influenza Vaccine 11/15/2023 Hepatitis B Vaccines Aged Out No long er eligible based on patient's age to complete this topic Care Teams Traffic Operations Manager Relationship Specialty Start Date End Date Adrian Kamara MD [address] [place] [address] PCP - General Family Medicine 04/25/23
== END | disposition home or self-care (01) ==
LOC: HO.US 15:15
PROVIDERS: PCP Nurse Practitioner Family; Visit Provider Surgery Vascular Surgery
DX: I65.23 Occlusion and stenosis of bilateral carotid arteries (principal)
CPT/HCPCS: 93880

== ENCOUNTER → 2024-05-21 15:16 | Outpatient (BNV) | payer OTHER, SELFPAY | PROVIDERS: PCP Nurse Practitioner Family; Visit Provider Radiology Diagnostic Radiology | DX: I65.23 Occlusion and stenosis of bilateral carotid arteries (principal) | CPT/HCPCS: 93880 ==

== ENCOUNTER 2024-06-07 11:05 | Outpatient (REF) | payer OTHER, SELFPAY ==
--- OUTSIDE RECORDS SUMMARY | 2024-06-07 15:34 | XMS_ITS | Clinical Summary ---
Author Organization [facility] Address [address] [place], [place] [address] Care Team Providers Care Billiard Table Mechanic Name Role Phone TanacarlitoAdrian khan J Primary Care Provider [phone] Allergies Active Allergy Reactions Criticality Noted Date [...] age to complete this topic Care Teams Billiard Table Mechanic Relationship Specialty Start Date End Date Adrian Kamara: [phone] [address] [facility] [place] [address] PCP - General Family Medicine 08/26/20
[2024-06-07 16:39] LABS: Influenza A PCR POSITIVE (Negative); Influenza B PCR NEGATIVE (Negative); Resp Syncy Virus RNA Qual PCR NEGATIVE (Negative); SARS COV2 PCR INHOUSE NEGATIVE (Negative)
== END 2024-06-07 11:06 | disposition home or self-care (01) ==
LOC: HO.LNP 11:05
PROVIDERS: PCP Nurse Practitioner Family; Visit Provider Physician Assistant Medical
DX: J01.20 Acute ethmoidal sinusitis, unspecified (principal)
CPT/HCPCS: 0241U

== ENCOUNTER 2024-06-07 11:05 | Outpatient (AMB) | payer OTHER, SELFPAY ==
--- OUTSIDE RECORDS SUMMARY | 2024-06-07 11:06 | XMS_ITS | Data Portability ---
Author Organization [place] - [facility], Allergy Address [address] [address] Assessment Encounter Date Assessment Date Assessment LastModified by Organization Details LastModified Time 11/06/2023 11/06/2023 Discussed with the patient that his report is not available today from his recent MRA but we have requested this from [facility]. His chronic head pressure likely does [...] CONTRAST please use 3T MRI 2023 024 [email or web address] [facility] ([facility]), [address] [place], [address], 11:58:30 Medication Orders None recorded. Patient TargetsNo targets recorded. Patient Instructions Encounter Date Encounter Id Patient Instructions Last Modified By Organization Details Last Modified Time 10/02/2023 [id number] 1) Pulsatile tinnitus - potential etiologies reviewed. [...] in hearing, particularly if sudden in onset. [place] [id number] Not available 10/02/2023 15:51:57 Reason for Referral None Reported. Results Created Date Observation Date Name Description Value Unit Range Abnormal Flag Note LastModifiedBy Organization Detail LastModifiedTime 10/02/19 audio gram No observ ation record ed. BARCODE Not Available 2023 15:46:44 10/03/19 24 07/31/2023 MRI, brain + inter nal audit ory canal , w/wo contr ast No observ ation record ed. [address] [facility] [address] [place], [address], 10/08/2023 08:50:03 11/20/19 24 11/01/2023 MR, angio gram, head + neck, w/ contr ast No observ ation record ed. [address] (Imaging) [address] [place], [address], 12/12/2023 09:59:42 Result Notes None recorded. Problems Name Problem SNOMED Code Status Onset Date Resolution Date Notes Provider Name and Address Organization Details Recorded Time Nasal congestio n 82020611 Active 2017 Nasal congestio n; Note: Date Diagnosed : 8 2:22 PM (R09.81) Not Available [facility] 4 02:21:51 Chronic maxillary sinusitis 78386189 Active 2017 Chronic maxillary sinusitis ; Note: Date Diagnosed : 8 2:34 PM (J32.0) Not Available [facility] 4 02:21:39 Deviated nasal septum 819042524 Active 2017 Deviated nasal septum; Note: Date Diagnosed : 8 2:22 PM (J34.2) Not Available [facility] 4 02:20:57 Chronic ethmoidal sinusitis 96279787 Active 2017 Ethmoidal sinusitis NOS; Note: Date Diagnosed : 8 2:35 PM (J32.2) Not Available [facility] 4 02:21:09 Sensorine ural hearing loss of bilateral ears 403204903 Active 2023 HAL [facility] [address], [place], [address] , [place] - [facility] 4 11:26:03 Bilateral tinnitus 55127018531 02 Active 2023 JUAN SALDANA PA-C [address], [place], [address] , [facility] - [facility] 4 12:06:50 Subjectiv e pulsatile tinnitus 26464529799 9104 Active 2023 JUAN SALDANA PA-C [address], [address] , [facility] - [facility] 4 13:07:34 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 98584982797 28937 Active 2023 JUAN SALDANA PA-C [address], [place], [address] , [place] [facility] 4 13:08:38 Chronic daily headache 62661343894 4102 Active 2023 JUAN SALDANA PA-C [address], [address] , [place] [facility] 4 13:09:05 Lighthead edness 140326882 Active 2023 JUAN SALDANA PA-C [address] [facility],[place] [address], [facility] [place], [address] , [facility] - [facility] [place] 4 13:09:19 Encephalo carmen 03113721 Active 2023 JUAN SALDANA PA-C [address] [facility],[place] [address], [facility] [place], [address] , [facility] - [facility] 09:57:53 Problem Notes None recorded. Procedures Surgical History Date Name Laterality Status Provider Name and Address Organization Details Recorded Time 4 Comp Audio with Tymps & Reflexes (68162 & 19403) completed BRIGHT ANDRES [address] [facility],[place] [address], [place], [address], [facility] - [facility] 10/02/2023 11:34:29 8 hernia repair completed Karson Crow [place] - [facility] 10/02/2023 11:05:10 0 extraction of wisdom tooth completed Karson Crow [place] - [facility] [place] 10/02/2023 11:05:25 Imaging Results Imaging Date Name Status LastModified by Organiz ation Details LastModified Time 10/02/2023 audiogram completed BARCODE Information no t available 10/02/2023 15:46:44 07/31/2023 MRI, brain + internal auditory canal, w/wo contrast completed [address] [facility] [address] [place], [address], 10/08/2023 08:50:03 11/01/2023 MR, angiogram, head + neck, w/ contrast completed [address] (Imaging) [address] [place], [address], 12/12/2023 09:59:42 Procedure Notes None recorded. Medical Equipment None Reported. Allergies Allergen ID Allergen Name Allergen Category Reaction Reaction Severity Criticality Documentation Date Start Date Code Code System Note Provider Name and Address Organization Details Recorded Time 62921 Tylenol medicatio n other Not available Not available 08/28/2023 3 RxNorm React ion: unkno wn, unspe cifie d;; Not Available [facility] 00:52:11 Medications Name Sig Start Date Stop Date Status Note LastModified by Organization Details LastModified Time ropinirole 1 mg tablet 2017 active Medication ID: [id number] Dur ation Value: 30 Brand Name: ropinirole Send Method: E-Prescrib ed Subs Allowed: subs OK Special Instructio n: TK 1 T PO 1 TO 3 HOURS BEFORE BEDTIME Me dicationGe nericName: ropinirole Not Available Not Available Not Available atorvastati n 10 mg tablet 2017 active Medication ID: [id number] Dur ation Value: 30 Brand Name: atorvastat in Send Method: E-Prescrib ed Subs Allowed: subs OK Special Instructio n: TK 1 T PO QD Medicat ionGeneric Name: atorvastat in Not Available Not Available Not Available Advair Diskus 250 mcg-50 mcg/dose powder for inhalation 10/01 completed Medication ID: [id number] Dur ation Value: 30 Brand Name: Advair Diskus Sen d Method: E-Prescrib ed Subs Allowed: subs OK Special Instructio n: INL 1 PUFF PO BID Medica tionGeneri cName: Advair Diskus Med ication ID: [id number] Dur ation Value: 30 Brand Name: Advair Diskus Sen d Method: E-Prescrib ed Subs Allowed: subs OK Special Instructio n: INL 1 PUFF PO BID Medica tionGeneri cName: Advair Diskus Not Available Not Available Not Available gabapentin 300 mg capsule 10/01 completed Medication ID: [id number] Dur ation Value: 90 Brand Name: gabapentin Send Method: E-Prescrib ed Subs Allowed: subs OK Special Instructio n: TK 2 CS PO TID Medica tionGeneri cName: gabapentin Medicatio n ID: [id number] Dur ation Value: 90 Brand Name: gabapentin Send Method: E-Prescrib ed Subs Allowed: subs OK Special Instructio n: TK 2 CS PO TID Medica tionGeneri cName: gabapentin Not Available Not Available Not Available montelukast 10 mg tablet 11/05 completed Medication ID: [id number] Dur ation Value: 30 Brand Name: montelukas t Send Method: E-Prescrib ed Subs Allowed: subs OK Special Instructio n: TK 1 T PO QD IN THE NICOLE Medica tionGeneri cName: montelukas t Medicati on ID: [id number] Dur ation Value: 30 Brand Name: montelukas t Send Method: E-Prescrib ed Subs Allowed: subs OK Special Instructio n: TK 1 T PO QD IN THE NICOLE Medica tionGeneri cName: montelukas t Not Available Not Available Not Available zolpidem 10 mg tablet 2017 active Medication ID: [id number] Dur ation Value: 30 Brand Name: zolpidem S end Method: E-Prescrib ed Subs Allowed: subs OK Special Instructio n: TK 1 T PO HS PRN Medica tionGeneri cName: zolpidem Not Available Not Available Not Available ProAir HFA 90 mcg/actuati on aerosol inhaler 11/05 completed Medication ID: [id number] Dur ation Value: 16 Brand Name: ProAir HFA Send Method: E-Prescrib ed Subs Allowed: subs OK Special Instructio n: INL 2 PUFFS PO Q 4 H PRN Medica tionGeneri cName: ProAir HFA Medica tion ID: [id number] Dur ation Value: 16 Brand Name: ProAir HFA Send Method: E-Prescrib ed Subs Allowed: subs OK Special Instructio n: INL 2 PUFFS PO Q 4 H PRN Medica tionGeneri cName: ProAir HFA Not Available Not Available Not Available Vitals Date Recorded Body height Body mass index (BMI) Body weight Provider Name and Address Organization Details Last Updated DateTime 11/06/2023 193.04 cm 26.8 kg/m2 22553.32 g Felicita Soni [place] - [facility] 11/06/2023 14:15:10 Social History None recorded. Functional Status None recorded. Mental Status None recorded. Family History Nothing Reported. Medical History Condition Response Asthma Y GERD/Reflux Y Past Encounters Encounter ID Performer Location Encounter Start Date Encounter Closed Date Diagnosis/Indication Diagnosis SNOMED-CT Code Diagnosis ICD10 Code Diagnosis Note [id number] JUAN SALDANA PA-C [facility] [address] [address] 10/02/2023 10:38:51 10/02/2023 12:20:12 Sensorineural hearing loss of bilateral ears 543265731 H90.3 Audiologic al evaluation results:Ri ght ear:{{Norm [...] ipsi response at 4kHz, AD. Bilateral tinnitus 13822 15787 102 H93.13 Bilateral subjective pulsatile tinnitus of ears 5443972206 806329 H93.A3 Chronic da feliz headache 5139864353 22582 R51.9 Lightheadedness 54463922 8 R42 [id number] MAC HDZ MD [facility] [address] [address] 11/06/2023 14:08:32 11/06/2023 15:16:06 Bilateral subjective pulsatile tinnitus of ears 9688416569 844885 H93.A3 Chronic da feliz headache 3109711076 08336 R51.9 Health Concerns Section Related Observation LastModified by Organization Krysta castillo LastModified Time None Recorded Concern Status LastModified by Organization Details LastModified Time None Recorded Advance Directives Directive None Recorded Payers Encounter Date Sequence Insurance Name Policy Number Policy [place] Covered Member ID [place] Member ID Guarantor Name 10/02/2023 1 [employer] [place] [employer] [place] [id number] Jackeline Villagomez [id number] Mitchell Villagomez 11/06/2023 1 [employer] [place] [employer] [place] [id number] Jackeline Allen Villagomez [id number] Mitchell Villagomez Notes Date Note Type [...] aneurysm. That was 6 weeks ago at [facility]. Had a sinus scan at PCP's office this spring that showed the right sinus was small. The lightheadedness is much better. Pressure at the right episcopalian and the top of the head on [...] not a headache. JUAN SALDANA PA-C [address] [facility],[place] [address], [place], [address], [place] [facility] 10/02/2023 15:52:23 11/06/2023 text/html 58 year old male presents for re-evaluation. He is status post MRA at [facility]. He reports that his balance is [...] gym without incident. MAC HDZ MD [address] [facility],[place] [address], [place], [address], [place] - [facility] 11/08/2023 17:05:48
--- OUTSIDE RECORDS SUMMARY | 2024-06-07 11:06 | XMS_ITS | Clinical Summary ---
Author Organization [facility] Address [address] [place], [place] [address] Care Team Providers Care Taker Off Braker Machine Name Role Phone TanacarlitoAdrian khan J Primary Care Provider [phone] Allergies Active Allergy Reactions Criticality Noted Date Comments Acetaminophen 03/03/2013 Does not like side effect very anxious with this med Medications Medication Sig Dispensed Refills Start Date End Date Status fluticasone (Flovent HFA) 44 MCG/ACT inhaler Inhale 1 puff into the lungs. 0 Active atorvastatin (LIPITOR) tablet 10 mg Take 10 mg by mouth every night at bedtime. 0 06/20/2020 Active omeprazole (PriLOSEC) 20 MG capsule Take 20 mg by mouth daily. 0 08/04/2020 Active zolpidem (AMBIEN CR) 12.5 MG CR tablet Take 12.5 mg by mouth every night at bedtime as needed. for insomnia 0 08/05/2020 Active rOPINIRole (REQUIP) 1 MG tablet TAKE 1 TABLET BY MOUTH AT BEDTIME ADMINISTER 1 TO 3 HOURS BEFORE AT BEDTIME 0 06/20/2020 Active Family History Medical History Relation Name Comments Cancer Father Diabetes Father Cancer Mother Clotting disorder Mother Relation Name Status Comments Father Mother Social History Tobacco Use Types Packs/Day Years Used Date Smoking Tobacco: Never Assessed Sex and Gender Information Value Date Recorded Sex Assigned at Not on file Gender Identity Not on file Sexual Orientation Not on file Job Start Date Occupation Industry Not on file Not on file Not on file Last Filed Vital Signs Vital Sign Reading Time Taken Comments Blood Pressure - - Pulse - - Temperature - - Respiratory Rate - - Oxygen Saturation - - Inhaled Oxygen Concentration - - Weight 90.7 kg (200 lb) 08/31/2020 3:12 PM EDT Height 190.5 cm (6' 3 ) 08/31/2020 3:12 PM EDT Body Mass Index 25 08/31/2020 3:12 PM EDT Plan of Treatment Health Maintenance Due Date Last Done Comments Hepatitis C Screening 1965 COVID-19 Vaccine (#1) 1963 Depression Screening 1975 BMI Counseling 1981 Preventative Health Evaluation 1981 DTap / Tdap / Td (1 - Tdap) 1982 Colon Cancer Screening (Colonoscopy) 2008 Shingrix-Zoster Vaccine (1 of 2) 2013 Influenza Vaccine (#1) 2023 RSV Adult > 60+ Yrs or Pregn ant (1 - 1-dose 75+ series) 2038 Hepatitis B Vaccines Aged Out No long er eligible based on patient's age to complete this topic Pneumococcal Vaccine Aged Out No long er eligible based on patient's age to complete this topic RSV Ped < 20 months Aged Out No longe r eligible based on patient's age to complete this topic Care Teams Taker Off Braker Machine Relationship Specialty Start Date End Date Adrian Kamara: [phone] [address] [facility] [place] [address] PCP - General Family Medicine 08/26/20
--- NOTE | 2024-06-07 13:10 | AM.OFFWIN_ITS ---
Intake Vital Signs 06/07/24 13:11 Height 6 ft 4 in Weight 238 lb BMI 29.0 BP 126/78 Blood Pressure Location Rt brachial Position Sitting Respiration 15 Pulse 82 Pulse Source Pulse Oximeter Temp 98.6 F Temp Source Oral Pulse Oximetry (%) 98 Oxygen Delivery Method Room Air Intake Visit Reasons: EP-Sinus? Intake Note: Pt is here today c/o sinus pressure, veritgo and Lt eye irritated Patient Tobacco Use Status: Never used Tobacco Allergies acetaminophen [From TYLENOL] Allergy (Unknown, Verified 06/07/24 13:19) FEELS LIKE HE IS GOING TO JUMP OUT OF MY SKIN pollen Allergy (Unknown, Uncoded 06/07/24 13:19) asthma, sinus infection HPI EP-Sinus? HPI Details 59-year-old male who comes to the walk-i n complaining of few days of sinus pressure, intermittent vertigo and left eye irritation, redness, watery discharge. No home flu or COVID testing done yet. Symptoms started with nasal congestion postnasal drip and mild cough. No fever or chills, myalgias or malaise, nausea vomiting or diarrhea, weakness, vision changes, ear pain or otic discharge, significant sore throat or headache, loss of sense of taste or smell, or other significant associated symptoms. [facility] Medical History Sinusitis, acute Pruritic intertrigo Restless leg syndrome IBS (irritable bowel syndrome) Dyslipidemia Mild intermittent asthma in adult without complication Surgical History Hx of colonoscopy History of inguinal hernia repair History of lipoma Family History Father Cancer of prostate Cancer of thyroid Mother Mitral valve prolapse Skin cancer Breast cancer SVT (supraventricular tachycardia) Sister Atrial septal aneurysm Social History Housing: House Alcohol intake: current Patient Tobacco Use Status: Never used Tobacco e-Cigarette/Vaping Use: Never Used Second Hand Smoke Exposure: No service: No Current occupational status: employed Current occupation: [employer] Current occupational exposures/hazards: No Cognitive needs: No Hearing needs: No Vision needs: No Review of Systems Const All systems reviewed & are unremarkable except as noted in HPI and below Physical Exam Vital Signs: Last Vital Signs Temp 98.6 F 06/07/24 13:11 Pulse 82 06/07/24 13:11 Resp 15 06/07/24 13:11 BP 126/78 06/07/24 13:11 Pulse Ox 98 06/07/24 13:11 Oxygen Delivery Method Room Air 06/07/24 13:11 BMI result Body Mass Index 29.0 Const General: cooperative, healthy appearing, comfortable, no acute distress, alert, awake, Physically active, ill appearing (Mildly) and well groomed; No anxious, diaphoretic, intoxicated appearing, poor hygiene or tired appearing Nutritional Appearance: average body habitus Orientation/consciousness: patient oriented x3 Limitations: no limitations HEENT Head: Yes normal to inspection, Yes normocephalic and Yes atraumatic Ears: hearing grossly normal bilaterally, external ears normal, TM's normal bilaterally and EAC's normal General nose exam: Normal external nose present, Abnormal mucous membranes and turbinates present and Nasal discharge present Face and sinus: No ecchymosis, No erythema, No edema, No fluctuance, No maxillary instability, Yes sinus tenderness and Yes Facial tenderness on exam of face and sinuses Mouth: Normal oral and palatal mucosa present, lip normal and tongue normal Throat: Yes abnormal tonsil (mildly erythematous bilaterally), No peritonsillar mass, No uvular edema and No cobblestoning Eyes General: appearance normal, both eyes and all related structures Neck Neck: Yes normal visual inspection, Yes no lymphadenopathy, Yes trachea midline, Yes supple and No anterior neck swelling Chest Chest palpation & inspection: normal palpation of entire chest wall Resp Effort & Inspection: normal respiratory effort, able to speak in complete sentences, no audible wheezes, Actively coughing, no grunting, not labored, no nasal flaring, no respiratory distress, no retractions, no segmental paradox chest wall movement, not tachypneic, no tripod positioning and symmetric chest movement Auscultation: clear to auscultation bilaterally, no crackles, no rales, no rhonchi, no wheezes, lung sounds not diminished and No rub present Cardio Palpation: normal PMI Rate: regular rate Rhythm: regular rhythm Heart sounds: S1 normal heart sound present and S2 normal heart sound present Skin Other: Good color, warm and dry Neuro General: patient oriented x3 Psych Appearance: grossly normal Mental Status: mental status grossly normal Speech and movement: Normal speech and movement present Affect: normal affect Attitude: cooperative Thought process: Normal thought process present Insight: Good insight present (Psych) Judgement: Good judgement present (Psych) Assessment & Plan Assessment & Plan (1) Sinusitis: Code(s): J32.9 - Chronic sinusitis, unspecified Qualifiers: Sinusitis location: ethmoidal Chronicity: acute Recurrence: not specified as recurrent Qualified Code(s): J01.20 - Acute ethmoidal sinusitis, unspecified Plan: Patient developing sinus pressure, associated with intermittent dizziness, and apparent left viral conjunctivitis. I think this is an underlying viral syndrome, and flu COVID and RSV results are pending. However at this point due to his complaint of significant sinus pressure, will treat with steroid course and we will start him on Augmentin. He can also trial benzonatate for the mild cough, as well as eecz-dwg-psdamys Mucinex. He requested eye drops for the conjunctivitis. He knows to follow up if symptoms persist or worsen, or go to the emergency department with worrisome symptoms Orders: Orders SARS-CoV2/FLU/RSV 06/07/24 J06.9 - Acute upper respiratory infection, unspecified Medications: New benzonatate 200 mg PO BID-TID PRN 20 caps 0RF cough prednisone 40 mg (2 x 20 mg) PO DAILY 10 tabs 0RF 5 days amoxicillin-pot clavulanate 875-125 mg 1 tab PO BID 14 tabs 0RF 7 days polymyxin B sulf-trimethoprim 10,000 unit- 1 mg/mL while awake; do not exceed 6 doses in 24 hours 1 drp ophthalmic (eye) QID 10 mL 0RF 5 days Coding Level of Care Code Est Pt Level 4 (42397) Diagnoses Acute ethmoidal sinusitis, recurrence not specified J01.20 Sinusitis location: ethmoidal Chronicity: acute Recurrence: not specified as recurrent
[2024-06-07 13:11] VITALS: BP 126/78; PULSE 82; RESP 15; TEMP 37; O2SAT 98; BMI 29.0
== END 2024-06-07 14:24 | disposition home or self-care (01) ==
LOC: HO.HMCWIC 11:05
PROVIDERS: PCP Nurse Practitioner Family; Visit Provider Physician Assistant Medical
DX: J01.20 Acute ethmoidal sinusitis, unspecified (principal)

== ENCOUNTER → 2024-07-16 15:51 | Outpatient (BNVA) | payer OTHER, SELFPAY | PROVIDERS: PCP Nurse Practitioner Family; Visit Provider Surgery ==

== ENCOUNTER → 2024-07-16 15:51 | Outpatient (AMB) | payer OTHER, SELFPAY ==
--- NOTE | 2024-07-16 15:54 | MHC.OFFVIS ---
Vital Signs 07/16/24 16:04 Height 6 ft 4 in Weight 231 lb BMI 28.1 BP 139/74 Blood Pressure Location Rt brachial Position Sitting Pulse 80 Intake Visit Reasons: colonoscopy screening Intake Note: Patient here for Colonoscopy screening. Reports no personal or family hx of Colon CA. Patient c/o: no concerns. Reports hx of polyps/ precancerous lesions. Colonoscopies recommended every 2yrs w/ Dr. Albert. Last colonoscopy 4yrs ago. Folder Machine Operator Required: No Accompanied by: Self / Same As Patient Allergies acetaminophen [From TYLENOL] Allergy (Unknown, Verified 07/16/24 15:59) FEELS LIKE HE IS GOING TO JUMP OUT OF MY SKIN pollen Allergy (Unknown, Uncoded 07/16/24 15:59) asthma, sinus infection HPI HPI colonoscopy screening: Details: 59-year-old male referred for screening colonoscopy. He denies any significant GI complaints. He denies a strong family history of colon cancer. His last colonoscopy was in [address] Dykes. I was able to review this. There was mention of a flat polyp, about 10 mm, removed from the cecum as well as in the right colon. These were tubular adenomas on pathology. He was told to have a colonoscopy every 3 years at that time he says. He states that he had been trying to schedule this with the manager psychiatry service the past few years. [facility] Medical History Sinusitis, acute Pruritic intertrigo Restless leg syndrome IBS (irritable bowel syndrome) Dyslipidemia Mild intermittent asthma in adult without complication Surgical History Hx of colonoscopy History of inguinal hernia repair History of lipoma Family History Father Cancer of prostate Cancer of thyroid Mother Mitral valve prolapse Skin cancer Breast cancer SVT (supraventricular tachycardia) Sister Atrial septal aneurysm Social History Housing: House Alcohol intake: current Patient Tobacco Use Status: Never used Tobacco e-Cigarette/Vaping Use: Never Used Second Hand Smoke Exposure: No service: No Current occupational status: employed Current occupation: [employer] Current occupational exposures/hazards: No Cognitive needs: No Hearing needs: No Vision needs: No Review of Systems Const Denies chills and Denies fever(s) Card Denies chest pain, Denies dyspnea and Denies dyspnea on exertion Resp Denies cough, Denies dyspnea and Denies dyspnea on exertion GI Denies hematochezia and Denies change in bowel habits Denies hematuria and Denies difficulty urinating Musc Denies back pain and Denies limited range of motion Neuro Denies focal weakness and Denies convulsions Psych Denies depression and Denies mood swings Physical Exam Const General: comfortable and no acute distress Orientation/consciousness: patient oriented x3 Neck Neck: Yes no lymphadenopathy Resp Auscultation: clear to auscultation bilaterally Cardio Rhythm: regular rhythm GI Palpation (GI): Soft to palpation, nontender and no guarding Neuro General: patient oriented x3 Assessment & Plan Assessment & Plan (1) Colon cancer screening: Code(s): Z12.11 - Encounter for screening for malignant neoplasm of colon Category: Medical Plan: He had 2 tubular adenomas in 2019. One was in the cecum and another 1 was in the right colon. He was told to have another colonoscopy within 2-3 years. I reviewed with him the technique of colonoscopy for screening. I explained the risks including but not limited to bleeding and perforation, as well as the benefits and alternatives. He understands and agrees to proceed. Medications: New sodium,potassium,mag sulfates 17.5-3.13-1.6 gram (Suprep Bowel Prep Kit) DILUTE; drink full amount early evening before AND next morning at least 2 hr before procedure; follow w 960 mL water PO 354 mL 0RF Coding Level of Care Code New Pt Level 3 (66395) Diagnoses Colon cancer screening Z12.11
[2024-07-16 16:04] VITALS: BP 139/74; PULSE 80; BMI 28.1
--- OUTSIDE RECORDS SUMMARY | 2024-07-16 17:54 | XMS_ITS | Clinical Summary ---
Author Organization [facility] Address [address] [place] [address] Care Team Providers Care Client Account Assistant Name Role Phone TanacarlitoAdrian khan Primary Care Provider [phone] Allergies Active Allergy Reactions Criticality Noted Date [...] age to complete this topic Care Teams Client Account Assistant Relationship Specialty Start Date End Date Adrian Kamara: [phone] [address] [facility] [place] [address] PCP - General Family Medicine 08/26/20
--- OUTSIDE RECORDS SUMMARY | 2024-07-16 17:54 | XMS_ITS | Data Portability ---
Author Organization [place] - [facility], Allergy Address [address] [address] Assessment Encounter Date Assessment Date Assessment LastModified by Organization Details LastModified Time 11/06/2023 11/06/2023 Discussed with the patient that his report is not available today from his recent MRA but we have requested this from [place] [facility]. His chronic head pressure likely does [...] CONTRAST please use 3T MRI 2023 024 [email or web address] [facility] ([facility]), [address] [place], [address], 11:58:30 Medication Orders None recorded. Patient TargetsNo targets recorded. Patient Instructions Encounter Date Encounter Id Patient Instructions Last Modified By Organization Details Last Modified Time 10/02/2023 [id number] 1) Pulsatile tinnitus - potential etiologies reviewed. [...] in hearing, particularly if sudden in onset. [place] [id number] Not available 10/02/2023 15:51:57 Reason for Referral None Reported. Results Created Date Observation Date Name Description Value Unit Range Abnormal Flag Note LastModifiedBy Organization Detail LastModifiedTime 10/02/19 audio gram No observ ation record ed. BARCODE Not Available 2023 15:46:44 10/03/19 24 07/31/2023 MRI, brain + inter nal audit ory canal , w/wo contr ast No observ ation record ed. [address] [facility] [address] [place], [address], 10/08/2023 08:50:03 11/20/19 24 11/01/2023 MR, angio gram, head + neck, w/ contr ast No observ ation record ed. [address] (Imaging) [address] [place], [address], 12/12/2023 09:59:42 Result Notes None recorded. Problems Name Problem SNOMED Code Status Onset Date Resolution Date Notes Provider Name and Address Organization Details Recorded Time Nasal congestio n 41518912 Active 2017 Nasal congestio n; Note: Date Diagnosed : 8 2:22 PM (R09.81) Not Available [facility] 4 02:21:51 Chronic maxillary sinusitis 32853644 Active 2017 Chronic maxillary sinusitis ; Note: Date Diagnosed : 8 2:34 PM (J32.0) Not Available [facility] 4 02:21:39 Deviated nasal septum 299024050 Active 2017 Deviated nasal septum; Note: Date Diagnosed : 8 2:22 PM (J34.2) Not Available [facility] 4 02:20:57 Chronic ethmoidal sinusitis 91811789 Active 2017 Ethmoidal sinusitis NOS; Note: Date Diagnosed : 8 2:35 PM (J32.2) Not Available [facility] 4 02:21:09 Sensorine ural hearing loss of bilateral ears 963140503 Active 2023 HAL [facility] [address], [place], [address] , [place] - [facility] 4 11:26:03 Bilateral tinnitus 05059597627 02 Active 2023 JUAN SALDANA PA-C [address], [place], [address] , [facility] - [facility] 4 12:06:50 Subjectiv e pulsatile tinnitus 58562926087 9104 Active 2023 JUAN SALDANA PA-C [address],[place] [address], [address] , [facility] - [facility] 4 13:07:34 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 74086960869 16663 Active 2023 JUAN SALDANA PA-C [address], [place], [address] , [place] [facility] 4 13:08:38 Chronic daily headache 79390624015 4102 Active 2023 JUAN SALDANA PA-C [address], [address] , [place] - [facility] 4 13:09:05 Lighthead edness 412333630 Active 2023 JUAN SALDANA PA-C [address] [facility],[place] [address], [facility] [place], [address] , [facility] - [facility] 4 13:09:19 Encephalo carmen 46020299 Active 2023 JUAN SALDANA PA-C [address] [facility],[place] [address], [facility] [place], [address] , [facility] - [facility] 09:57:53 Problem Notes None recorded. Procedures Surgical History Date Name Laterality Status Provider Name and Address Organization Details Recorded Time 4 Comp Audio with Tymps & Reflexes (99663 & 72551) completed BRIGHT ANDRES [address] [facility],[place] [address], [place], [address], [facility] - [facility] 10/02/2023 11:34:29 8 hernia repair completed Karson Crow [place] - [facility] 10/02/2023 11:05:10 0 extraction of wisdom tooth completed Karson Crow [place] - [facility] 10/02/2023 11:05:25 Imaging Results Imaging Date Name Status LastModified by Organiz ation Details LastModified Time 10/02/2023 audiogram completed [facility] Information no t available 10/02/2023 15:46:44 07/31/2023 MRI, brain + internal auditory canal, w/wo contrast completed [address] [facility] [address] [place], [address], 10/08/2023 08:50:03 11/01/2023 MR, angiogram, head + neck, w/ contrast completed [address] (Imaging) [address] [place], [address], 12/12/2023 09:59:42 Procedure Notes None recorded. Medical Equipment None Reported. Allergies Allergen ID Allergen Name Allergen Category Reaction Reaction Severity Criticality Documentation Date Start Date Code Code System Note Provider Name and Address Organization Details Recorded Time 43342 Tylenol medicatio n other Not available Not available 08/28/2023 3 RxNorm React ion: unkno wn, unspe cifie d;; Not Available [facility] 00:52:11 Medications Name Sig Start Date Stop Date Status Note LastModified by Organization Details LastModified Time ropinirole 1 mg tablet 2017 active Medication ID: [id number] Dur ation Value: 30 Brand Name: ropinirole Send Method: E-Prescrib ed Subs Allowed: subs OK Special Instructio n: TK 1 T PO 1 TO 3 HOURS BEFORE BEDTIME Me dicationGe nericName: ropinirole Not Available Not Available Not Available atorvastati n 10 mg tablet 2017 active Medication ID: [id number] Dur ation Value: 30 Brand Name: atorvastat in Send Method: E-Prescrib ed Subs Allowed: subs OK Special Instructio n: TK 1 T PO QD Medicat ionGeneric Name: atorvastat in Not Available Not Available Not Available Advair Diskus 250 mcg-50 mcg/dose powder for inhalation 10/01 completed Medication ID: [id number] Dur ation Value: 30 Brand Name: Advair Diskus Sen d Method: E-Prescrib ed Subs Allowed: subs OK Special Instructio n: INL 1 PUFF PO BID Medica tionGeneri cName: Advair Diskus Med ication ID: [id number] Dur ation Value: 30 Brand Name: Advair Diskus Sen d Method: E-Prescrib ed Subs Allowed: subs OK Special Instructio n: INL 1 PUFF PO BID Medica tionGeneri cName: Advair Diskus Not Available Not Available Not Available gabapentin 300 mg capsule 10/01 completed Medication ID: [id number] Dur ation Value: 90 Brand Name: gabapentin Send Method: E-Prescrib ed Subs Allowed: subs OK Special Instructio n: TK 2 CS PO TID Medica tionGeneri cName: gabapentin Medicatio n ID: [id number] Dur ation Value: 90 Brand Name: gabapentin Send Method: E-Prescrib ed Subs Allowed: subs OK Special Instructio n: TK 2 CS PO TID Medica tionGeneri cName: gabapentin Not Available Not Available Not Available montelukast 10 mg tablet 11/05 completed Medication ID: [id number] Dur ation Value: 30 Brand Name: montelukas t Send Method: E-Prescrib ed Subs Allowed: subs OK Special Instructio n: TK 1 T PO QD IN THE NICOLE Medica tionGeneri cName: montelukas t Medicati on ID: [id number] Dur ation Value: 30 Brand Name: montelukas t Send Method: E-Prescrib ed Subs Allowed: subs OK Special Instructio n: TK 1 T PO QD IN THE [place] Medica tionGeneri cName: montelukas t Not Available Not Available Not Available zolpidem 10 mg tablet 2017 active Medication ID: [id number] Dur ation Value: 30 Brand Name: zolpidem S end Method: E-Prescrib ed Subs Allowed: subs OK Special Instructio n: TK 1 T PO HS PRN Medica tionGeneri cName: zolpidem Not Available Not Available Not Available ProAir HFA 90 mcg/actuati on aerosol inhaler 11/05 completed Medication ID: [id number] Dur ation Value: 16 Brand Name: ProAir HFA Send Method: E-Prescrib ed Subs Allowed: subs OK Special Instructio n: INL 2 PUFFS PO Q 4 H PRN Medica tionGeneri cName: ProAir HFA Medica tion ID: [id number] Dur ation Value: 16 Brand Name: ProAir HFA Send Method: E-Prescrib ed Subs Allowed: subs OK Special Instructio n: INL 2 PUFFS PO Q 4 H PRN Medica tionGeneri cName: ProAir HFA Not Available Not Available Not Available Vitals Date Recorded Body height Body mass index (BMI) Body weight Provider Name and Address Organization Details Last Updated DateTime 11/06/2023 193.04 cm 26.8 kg/m2 85581.32 g Felicita Soni [place] - [facility] 11/06/2023 14:15:10 Social History None recorded. Functional Status None recorded. Mental Status None recorded. Family History Nothing Reported. Medical History Condition Response Asthma Y GERD/Reflux Y Past Encounters Encounter ID Performer Location Encounter Start Date Encounter Closed Date Diagnosis/Indication Diagnosis SNOMED-CT Code Diagnosis ICD10 Code Diagnosis Note [id number] JUAN SALDANA PA-C [facility] [address] [address] 10/02/2023 10:38:51 10/02/2023 12:20:12 Sensorineural hearing loss of bilateral ears 659330741 H90.3 Audiologic al evaluation results:Ri ght ear:{{Norm [...] ipsi response at 4kHz, AD. Bilateral tinnitus 83273 42116 102 H93.13 Bilateral subjective pulsatile tinnitus of ears 8617808973 207281 H93.A3 Chronic da feliz headache 9386905798 59065 R51.9 Lightheadedness 61392362 8 R42 [id number] MAC HDZ MD [facility] [address] [address] 11/06/2023 14:08:32 11/06/2023 15:16:06 Bilateral subjective pulsatile tinnitus of ears 9046641512 839784 H93.A3 Chronic da fel[place] headache 8076901554 28328 R51.9 Health Concerns Section Related Observation LastModified by Organization Cassand[facility] ls LastModified Time None Recorded Concern Status LastModified by Organization Details LastModified Time None Recorded Advance Directives Directive None Recorded Payers Encounter Date Sequence Insurance Name Policy Number Policy [place] Covered Member ID [place] Member ID Guarantor Name 10/02/2023 1 [employer] [facility] [place] [id number] Jackeline Villagomez [id number] Mitchell Villagomez 11/06/2023 1 [employer] [place] [id number] Jackeline Villagomez [id number] Mitchell Villagomez Notes Date Note Type Note [...] aneurysm. That was 6 weeks ago at [place]. Had a sinus scan at PCP's office this spring that showed the right sinus was small. The lightheadedness is much better. Pressure at the right caodaism and the top of the head on [...] not a headache. JUAN SALDANA PA-C [address] [facility],[place] [address], [place], [address], [place] - [facility] 10/02/2023 15:52:23 11/06/2023 text/html 58 year old male presents for re-evaluation. He is status post MRA at [facility]. He reports that his balance is [...] gym without incident. MAC HDZ MD [address] [facility],[place] [address], [place], [address], [place] [facility] 11/08/2023 17:05:48
--- OUTSIDE RECORDS SUMMARY | 2024-07-16 17:54 | XMS_ITS | Clinical Summary ---
Author Organization [facility] Address [address] [place] [address] Care Team Providers Care Lead Java Programmer Name Role Phone Adrian Kamara MD Primary Care Provider [phone] Allergies No known active allergies Medications Medication [...] age to complete this topic Care Teams Lead Java Programmer Relationship Specialty Start Date End Date Adrian Kamara MD [address] [place] [address] PCP - General Family Medicine 04/25/23
== END ==
LOC: HO.HGS 15:52
PROVIDERS: PCP Nurse Practitioner Family; Visit Provider Surgery
DX: Z12.11 Encounter for screening for malignant neoplasm of colon (principal)
CPT/HCPCS: 99203

== ENCOUNTER 2024-08-12 14:02 | Outpatient (AMB) | payer OTHER, SELFPAY ==
[2024-08-12 14:05] VITALS: BP 130/80; PULSE 72; O2SAT 98; BMI 28.1
--- NOTE | 2024-08-12 14:05 | MHC.PC.OV ---
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 Allergies acetaminophen [From TYLENOL] Allergy (Unknown, Verified 08/12/24 14:06) FEELS LIKE HE IS GOING TO JUMP OUT OF MY SKIN pollen Allergy (Unknown, Uncoded 07/16/24 15:59) asthma, sinus infection Medication List - Last Reconciled 08/12/24 by Adrian Kamara, [facility] albuterol sulfate 90 mcg/actuation (Ventolin HFA) 2 puffs inhalation Q6H PRN ascorbic acid (vitamin C) 1 g PO DAILY 90 days aspirin 81 mg PO DAILY atorvastatin 80 mg PO BEDTIME econazole nitrate 1% appl topical eszopiclone 3 mg PO BEDTIME 90 days ezetimibe 10 mg PO DAILY fluticasone propionate 50 mcg/actuation 1 spray intranasal DAILY metronidazole 0.75% appl topical omeprazole 20 mg PO DAILY ropinirole 2 mg PO BEDTIME sildenafil 25 mg PO DAILY PRN 20 days Tobacco use date assessed: 08/12/24 Dental Screening Dental Screen Date: 08/12/24 Did you have a dental visit in the last 12 months?: Yes Did you have a dental problem in the last 6 months where you did not have access to dental care?: No Was dental information given to patient?: Patient has dentist HPI Annual PE HPI Details History of Present Illness The patient is a 59-year-old male presenting with a primary reason for a physical exam. He denies any acute symptoms such as chest pain, respiratory difficulty, gastrointestinal issues, or urinary symptoms during this visit. He receives regular care from a urologist, envelope machine adjuster, head of geography, and vascular specialist. He has seen ENT in the past for pulsatile tinninus. Laboratories were ordered as part of the assessment, with a note that PSA testing is not currently necessary. The visit primarily focused on maintenance rather than addressing acute conditions, with emphasis on continued monitoring by his other healthcare providers. ED: will send sildenafil, Testosterone will be ordered Health Maintenance - Regular follow-up with Urology, Cardiology, Dermatology, and Vascular specialties. - Laboratories ordered; PSA screening not currently due. Social History Review of Systems - Cardiovascular: Denies chest pain. - Respiratory: Denies shortness of breath. - Gastrointestinal: Denies abdominal pain, blood in stool, constipation, diarrhea. - Urinary: Denies urinary issues. Physical Exam General: Cooperative, healthy appearing, comfortable, no acute distress and well developed Orientation: Patient oriented x3 Limitations: No limitations Head: Normal to inspection Ears: Hearing grossly normal bilaterally Nose: Normal external nose present Face and sinus: Normal facial exam Eyes: Appearance normal, both eyes and all related structures Neck: Normal visual inspection and Yes full ROM Respiratory: Normal respiratory effort and able to speak in complete sentences. Clear to auscultation bilaterally Cardiovascular: Regular rate and rhythm. Normal S1 and S2 GI: Normal to inspection. Soft to palpation and nontender Skin: No rashes or lesions noted, fair skinned Neuro: Patient oriented x3 Extremities: Normal to inspection Results - Labs: Ordered; specific tests not detailed. Plan The visit focused on conducting a physical exam and confirming the patient's overall well-being, with no acute concerns reported. The patient continues to have specialists overseeing his urological, cardiovascular, dermatological, and vascular care. Laboratories were ordered to proceed with routine checks; however, PSA screening remains deferred at this time. The patient is advised to maintain his regular appointments with each specialist for ongoing health evaluation and management. Discussion Notes During today's visit, discussions centered on confirming routine healthcare maintenance rather than addressing acute issues. I reiterated to the patient the importance of regular follow-ups with his urologist, envelope machine adjuster, head of geography, and vascular specialist. Although there were no new findings to communicate immediately, I emphasized the significance of adhering to routine laboratory testing as ordered and continuing vigilant health monitoring. I did not initiate any new treatments or propose changes concerning his ongoing healthcare strategy, acknowledging his comprehensive care with existing specialists. Patient Instructions - Continue regular visits with your urologist, envelope machine adjuster, head of geography, and vascular specialist. - Follow through with ordered labs. - Maintain your health monitoring and attend all scheduled specialist appointments. [facility] Medical History Sinusitis, acute Pruritic intertrigo Restless leg syndrome IBS (irritable bowel syndrome) Dyslipidemia Mild intermittent asthma in adult without complication Surgical History Hx of colonoscopy History of inguinal hernia repair History of lipoma Family History Father Cancer of prostate Cancer of thyroid Mother Mitral valve prolapse Skin cancer Breast cancer SVT (supraventricular tachycardia) Sister Atrial septal aneurysm Social History Housing: House Alcohol intake: current Patient Tobacco Use Status: Never used Tobacco e-Cigarette/Vaping Use: Never Used Second Hand Smoke Exposure: No service: No Current occupational status: employed Current occupation: [employer] Current occupational exposures/hazards: No Cognitive needs: No Hearing needs: No Vision needs: No Questionnaire PHQ-9 Over the last 2 weeks, how often have you been bothered by any of the following problems? 1. Little interest or pleasure in doing things: not at all 2. Feeling down, depressed, or hopeless: not at all 3. Trouble falling or staying asleep, or sleeping too much: several days 4. Feeling tired or having little energy: several days 5. Poor appetite or overeating: not at all 6. Feeling bad about yourself - or that you are a failure or have let yourself or your family down: not at all 7. Trouble concentrating on things, such as reading the newspaper or watching television: not at all 8. Moving or speaking so slowly that other people could have noticed. Or the opposite - being so fidgety or restless that you have been moving around a lot more than usual: not at all 9. Thoughts that you would be better off or of hurting yourself in some way: not at all Total score: 2 Depression Screening Interpretation: Negative Depression Screening Done: Yes 19542 - PHQ-9 Billing: Yes Source: Developed by Drs. Moises Schneider, Rajni Cadena, Brian Mcmillan and colleagues, with an educational yee from [employer]. Thrive Questionnaire Date Thrive assessed: 08/12/24 I am a: Patient What is your living situation today?: I have a steady place to live Within the past 12 months, did the food you bought not last and you didn't have the money to get more?: Never true Within the past 12 months, did you worry whether your food would run out before you got money to buy more?: Never true Do you have trouble paying for medicines?: No Do you have trouble getting transportation to medical appointments?: No Do you have trouble paying your heating and electricity bill?: No Do you have trouble taking care of your child, family member or friend?: No Do you have trouble with day-to-day activities such as bathing, preparing meals, shopping, managing finances, etc.?: No Are you currently unemployed and looking for a job?: No Are you interested in more education?: No Please select the resources that you would like help with: None Currently or been in a relationship where the following occur: No concerns reported THRIVE Score: 0 AUDIT C Alcohol Use Questionnaire (AUDIT-C) 1. How often do you have a drink containing alcohol?: 2-3 times a week 2. How many drinks containing alcohol do you have on a typical day when you are drinking?: 1 or 2 3. How often do you have six or more drinks on one occasion?: Never Total Score: 3 Score Reviewed/Action Taken: Yes OSCAR-7 AMB Questionnaire OSCAR-7 Date OSCAR - 7 assessed: 08/12/24 Feeling nervous, anxious, or on edge: 0 = Not at all Not being able to stop or control worryin = Not at all Worrying too much about different things: 0 = Not at all Trouble relaxin = Not at all Being so restless that it is hard to sit still: 0 = Not at all Becoming easily annoyed or irritable: 0 = Not at all Feeling afraid as if something awful might happen: 0 = Not at all Total OSCAR-7 score (0-4 normal; 5-9 mild; 10-14 moderate; 15-21 severe): 0 Source: Developed by Drs. Moises Schneider, Rajni Cadena, Brian Mcmillan and colleagues, with an educational yee from [employer]. OSCAR-7 Assessment Billing OSCAR-7 Assessment Tool: OSCAR-7 Assessment 40004 Physical exam (Primary Care) Vital Signs: Last Vital Signs Pulse 72 08/12/24 14:05 BP 130/80 08/12/24 14:05 Pulse Ox 98 08/12/24 14:05 Oxygen Delivery Method Room Air 08/12/24 14:05 BMI result Body Mass Index 28.1 Tobacco/Smoking Status: Tobacco use Status Tobacco use date assessed 08/12/24 08/12/24 14:08 Patient Tobacco Use Status Never used Tobacco 08/12/24 14:08 e-Cigarette/Vaping Use Never Used 08/12/24 14:08 PHQ-9: PHQ-9 Score PHQ-9: Total score 2 08/12/24 14:08 Depression Screening Interpretation: Negative Thrive Assessment: Date of Thrive Assessment Date Thrive assessed 08/12/24 08/12/24 14:08 Currently or been in a relationship where the following occur: No concerns reported Coding Level of Care Code Est Pt Prev Care 40-64y(89623) Diagnoses Physical exam Z00.00 Erectile dysfunction N52.9 Additional Codes OSCAR-7 Assessment Billing - OSCAR-7 Assessment Tool: OSCAR-7 Assessment 76863 ([id number]) PHQ-9 - 90657 - PHQ-9 Billing: Yes ([id number]) Assessment & Plan Assessment & Plan (1) Physical exam: Code(s): Z00.00 - Encounter for general adult medical examination without abnormal findings Category: Medical (2) Erectile dysfunction: Code(s): N52.9 - Male erectile dysfunction, unspecified Category: Medical Plan . Orders: Orders Complete Blood Count Auto Diff Today Z00.00 - Encounter for general adult medical examination without abnormal findings Comprehensive [place]. Panel Fast Today Z00.00 - Encounter for general adult medical examination without abnormal findings TSH reflex Free T4 Today Z00.00 - Encounter for general adult medical examination without abnormal findings UA CC w/rflx Micro + Cult Today Z00.00 - Encounter for general adult medical examination without abnormal findings Lipid Panel Today Z00.00 - Encounter for general adult medical examination without abnormal findings Testosterone, Free/Total Today N52.9 - Male erectile dysfunction, unspecified Medications: New sildenafil administer 30 minutes to 4 hours before activity 25 mg PO DAILY 20 days PRN 20 tabs 0RF sexual activity albuterol sulfate 90 mcg/actuation (Ventolin HFA) 2 puffs inhalation Q6H PRN 8.5 grams 0RF shortness of breath or wheezing
--- OUTSIDE RECORDS SUMMARY | 2024-08-12 16:14 | XMS_ITS | Data Portability ---
Author Organization [place] - [facility], Allergy Address [address] [address] Assessment Encounter Date Assessment Date Assessment LastModified by Organization Details LastModified Time 11/06/2023 11/06/2023 Discussed with the patient that his report is not available today from his recent MRA but we have requested this from [place] [facility]. His chronic head pressure likely does [...] CONTRAST please use 3T MRI 2023 024 [email or web address] [facility] ([facility]), [address] [place], [address], 11:58:30 Medication Orders None recorded. Patient TargetsNo targets recorded. Patient Instructions Encounter Date Encounter Id Patient Instructions Last Modified By Organization Details Last Modified Time 10/02/2023 [id number] 1) Pulsatile tinnitus - potential etiologies reviewed. [...] in hearing, particularly if sudden in [place]. [place] [id number] Not available 10/02/2023 15:51:57 Reason for Referral None Reported. Results Created Date Observation Date Name Description Value Unit Range Abnormal Flag Note LastModifiedBy Organization Detail LastModifiedTime 10/02/19 audio gram No observ ation record ed. BAR[facility] Not Available 2023 15:46:44 10/03/19 24 07/31/2023 MRI, brain + inter nal audit ory canal , w/wo contr ast No observ ation record ed. [address] [facility] [address] [place], [address], 10/08/2023 08:50:03 11/20/19 24 11/01/2023 MR, angio gram, head + neck, w/ contr ast No observ ation record ed. [address] (Imaging) [address] [place], [address], 12/12/2023 09:59:42 Result Notes None recorded. Problems Name Problem SNOMED Code Status Onset Date Resolution Date Notes Provider Name and Address Organization Details Recorded Time Nasal congestio n 12880563 Active 2017 Nasal congestio n; Note: Date Diagnosed : 8 2:22 PM (R09.81) Not Available [facility] 4 02:21:51 Chronic maxillary sinusitis 24207104 Active 2017 Chronic maxillary sinusitis ; Note: Date Diagnosed : 8 2:34 PM (J32.0) Not Available [facility] 4 02:21:39 Deviated nasal septum 502915547 Active 2017 Deviated nasal septum; Note: Date Diagnosed : 8 2:22 PM (J34.2) Not Available [facility] 4 02:20:57 Chronic ethmoidal sinusitis 80013312 Active 2017 Ethmoidal sinusitis NOS; Note: Date Diagnosed : 8 2:35 PM (J32.2) Not Available [facility] 4 02:21:09 Sensorine ural hearing loss of bilateral ears 184959245 Active 2023 [facility] [address], [place], [address] , [place] - [facility] 4 11:26:03 Bilateral tinnitus 36110408933 02 Active 2023 JUAN SALDANA PA-C [address], [place], [address] , [facility] - [facility] 4 12:06:50 Subjectiv e pulsatile tinnitus 19191060561 9104 Active 2023 JUAN SALDANA PA-C [address], [address] , [facility] - [facility] 4 13:07:34 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 42694023345 42997 Active 2023 JUAN SALDANA PA-C [address], [place], [address] , [place] [facility] 4 13:08:38 Chronic daily headache 19949814771 4102 Active 2023 JUAN SALDANA PA-C [address], [address] , [place] - [facility] 4 13:09:05 Lighthead edness 282016359 Active 2023 JUAN SALDANA PA-C [address] [facility],[place] [address], [facility] [place], [address] , [facility] - [facility] 4 13:09:19 Encephalo carmen 84538354 Active 2023 JUAN SALDANA PA-C [address] [facility],[place] [address], [facility] [place], [address] , [facility] - [facility] 09:57:53 Problem Notes None recorded. Procedures Surgical History Date Name Laterality Status Provider Name and Address Organization Details Recorded Time 4 Comp Audio with Tymps & Reflexes (42370 & 75051) completed BRIGHT ANDRES [address] [facility],[place] [address], [place], [address], [facility] - [facility] 10/02/2023 11:34:29 8 hernia repair completed Karson Crow CT - [facility] 10/02/2023 11:05:10 0 extraction of wisdom tooth completed Karson Crow CT - [facility] 10/02/2023 11:05:25 Imaging Results Imaging Date Name Status LastModified by Organiz ation Details LastModified Time 10/02/2023 audiogram completed [facility] Information no t available 10/02/2023 15:46:44 07/31/2023 MRI, brain + internal auditory canal, w/wo contrast completed [address] [facility] [address] [place], [address], 10/08/2023 08:50:03 11/01/2023 MR, angiogram, head + neck, w/ contrast completed [address] (Imaging) [address] [place], [address], 12/12/2023 09:59:42 Procedure Notes None recorded. Medical Equipment None Reported. Allergies Allergen ID Allergen Name Allergen Category Reaction Reaction Severity Criticality Documentation Date Start Date Code Code System Note Provider Name and Address Organization Details Recorded Time 17387 Tylenol medicatio n other Not available Not available 08/28/2023 3 RxNorm React ion: unkno wn, unspe cifie d;; Not Available [facility] 00:52:11 Medications Name Sig Start Date Stop Date Status Note LastModified by Organization Details LastModified Time ropinirole 1 mg tablet 2017 active Medication ID: [id number] Dur ation Value: 30 Brand Name: ropinirole Send Method: E-Prescrib ed Subs Allowed: subs OK Special Instructio n: TK 1 T PO 1 TO 3 HOURS BEFORE BEDTIME Me dicationGe nericName: ropinirole Not Available Not Available Not Available atorvastati n 10 mg tablet 2017 active Medication ID: [id number] Dur ation Value: 30 Brand Name: atorvastat in Send Method: E-Prescrib ed Subs Allowed: subs OK Special Instructio n: TK 1 T PO QD Medicat ionGeneric Name: atorvastat in Not Available Not Available Not Available Advair Diskus 250 mcg-50 mcg/dose powder for inhalation 10/01 completed Medication ID: [id number] Dur ation Value: 30 Brand Name: Advair Diskus Sen d Method: E-Prescrib ed Subs Allowed: subs OK Special Instructio n: INL 1 PUFF PO BID Medica tionGeneri cName: Advair Diskus Med ication ID: [id number] Dur ation Value: 30 Brand Name: Advair Diskus Sen d Method: E-Prescrib ed Subs Allowed: subs OK Special Instructio n: INL 1 PUFF PO BID Medica tionGeneri cName: Advair Diskus Not Available Not Available Not Available gabapentin 300 mg capsule 10/01 completed Medication ID: [id number] Dur ation Value: 90 Brand Name: gabapentin Send Method: E-Prescrib ed Subs Allowed: subs OK Special Instructio n: TK 2 CS PO TID Medica tionGeneri cName: gabapentin Medicatio n ID: [id number] Dur ation Value: 90 Brand Name: gabapentin Send Method: E-Prescrib ed Subs Allowed: subs OK Special Instructio n: TK 2 CS PO TID Medica tionGeneri cName: gabapentin Not Available Not Available Not Available montelukast 10 mg tablet 11/05 completed Medication ID: [id number] Dur ation Value: 30 Brand Name: montelukas t Send Method: E-Prescrib ed Subs Allowed: subs OK Special Instructio n: TK 1 T PO QD IN THE NICOLE Medica tionGeneri cName: montelukas t Medicati on ID: [id number] Dur ation Value: 30 Brand Name: montelukas t Send Method: E-Prescrib ed Subs Allowed: subs OK Special Instructio n: TK 1 T PO QD IN THE NICOLE Medica tionGeneri cName: montelukas t Not Available Not Available Not Available zolpidem 10 mg tablet 2017 active Medication ID: [id number] Dur ation Value: 30 Brand Name: zolpidem S end Method: E-Prescrib ed Subs Allowed: subs OK Special Instructio n: TK 1 T PO HS PRN Medica tionGeneri cName: zolpidem Not Available Not Available Not Available ProAir HFA 90 mcg/actuati on aerosol inhaler 11/05 completed Medication ID: [id number] Dur ation Value: 16 Brand Name: ProAir HFA Send Method: E-Prescrib ed Subs Allowed: subs OK Special Instructio n: INL 2 PUFFS PO Q 4 H PRN Medica tionGeneri cName: ProAir HFA Medica tion ID: [id number] Dur ation Value: 16 Brand Name: ProAir HFA Send Method: E-Prescrib ed Subs Allowed: subs OK Special Instructio n: INL 2 PUFFS PO Q 4 H PRN Medica tionGeneri cName: ProAir HFA Not Available Not Available Not Available Vitals Date Recorded Body height Body mass index (BMI) Body weight Provider Name and Address Organization Details Last Updated DateTime 11/06/2023 193.04 cm 26.8 kg/m2 70028.32 g Felicita Soni [place] - [facility] 11/06/2023 14:15:10 Social History None recorded. Functional Status None recorded. Mental Status None recorded. Family History Nothing Reported. Medical History Condition Response Asthma Y GERD/Reflux Y Past Encounters Encounter ID Performer Location Encounter Start Date Encounter Closed Date Diagnosis/Indication Diagnosis SNOMED-CT Code Diagnosis ICD10 Code Diagnosis Note [id number] JUAN SALDANA PA-C [facility] [address] [address] 10/02/2023 10:38:51 10/02/2023 12:20:12 Sensorineural hearing loss of bilateral ears 087256469 H90.3 Audiologic al evaluation results:Ri ght ear:{{Norm [...] ipsi response at 4kHz, AD. Bilateral tinnitus 75507 38678 102 H93.13 Bilateral subjective pulsatile tinnitus of ears 6813816272 161479 H93.A3 Chronic da feliz headache 1227988350 09977 R51.9 Lightheadedness 04035133 8 R42 [id number] MAC HDZ MD [facility] [address] [address] 11/06/2023 14:08:32 11/06/2023 15:16:06 Bilateral subjective pulsatile tinnitus of ears 9823089582 181146 H93.A3 Chronic da feliz headache 1801697505 15255 R51.9 Health Concerns Section Related Observation LastModified by Organization Cassandram[facility]ira ls LastModified Time None Recorded Concern Status LastModified by Organization Details LastModified Time None Recorded Advance Directives Directive None Recorded Payers Encounter Date Sequence Insurance Name Policy Number Policy [place] Covered Member ID [place] Member ID Guarantor Name 10/02/2023 1 [employer] OF [facility] [place] [id number] Jackeline Villagomez [id number] Mitchell Villagomez 11/06/2023 1 [employer] [place] [id number] Jackeline Villagomez [id number] Mitchell Villagomez Notes Date Note Type Note [...] aneurysm. That was 6 weeks ago at [facility]. Had a sinus scan at PCP's office this spring that showed the right sinus was small. The lightheadedness is much better. Pressure at the right mormonism and the top of the head on [...] not a headache. JUAN SALDANA PA-C [address] [facility],[place] [address], [place], [address], [place] - [facility] 10/02/2023 15:52:23 11/06/2023 text/html 58 year [...] to return to the gym without incident. [facility] HDZ MD [address] [facility],[place] [address], [place], [address], [place] - [facility] 11/08/2023 17:05:48
--- OUTSIDE RECORDS SUMMARY | 2024-08-12 16:14 | XMS_ITS | Clinical Summary ---
Author Organization [facility] Address [address] [place] [address] Care Team Providers Care Therapy Tech Name Role Phone TanacarlitoAdrian khan Primary Care Provider [phone] Allergies Active Allergy Reactions Criticality Noted Date [...] age to complete this topic Care Teams Therapy Tech Relationship Specialty Start Date End Date Adrian Kamara: [phone] [address] [facility] [place] [address] PCP - General Family Medicine 08/26/20
--- OUTSIDE RECORDS SUMMARY | 2024-08-12 16:14 | XMS_ITS | Clinical Summary ---
Author Organization [facility] Address [address] [place] [address] Care Team Providers Care Pants Busheler Name Role Phone Adrian Kamara MD Primary Care Provider Allergies No known active allergies Medications atorvastatin (LIPITOR) 80 MG tablet Take 80 mg by mouth nightly. 3 Active Dupixent 300 MG/2ML prefilled syringe 4 Active rOPINIRole (REQUIP) 2 MG tablet 4 Active OMEprazole (PriLOSEC) 20 MG capsule 4 Active fluticasone (FloNASE) 50 mcg/spray nasal spray 3 Active eszopiclone (LUNESTA) 3 MG tablet 3 Active trimethoprim-polym yxin b (POLYTRIM) ophthalmic solutionIndication s:Bacterial conjunctivitis of right eye Administer 1 drop to the right eye every 4 (four) hours. 10 mL 4 Active Social History Tobacco Use Types Packs/Day Years Used Date Smoking Tobacco: Never Assessed Sex and Gender Information Value Date Recorded Sex Assigned at Not on file Legal Sex Male 10:17 AM EST Gender Identity Not on file Sexual Orientation [...] Virus Screening 1965 COVID-19 Vaccine (#1) 1968 HIV Screening 1976 DTaP/Tdap/Td Vaccines (1 - [...] on patient's age to complete [place] [phone] [facility] Care Teams Pants Busheler Relationship Specialty Start Date End Date Adrian Kamara MD [address] [place] [address] PCP - General Family Medicine 04/25/23
== END 2024-08-12 14:49 | disposition home or self-care (01) ==
LOC: HO.HMCC 14:03
PROVIDERS: PCP Nurse Practitioner Family; Visit Provider Nurse Practitioner Family
DX: Z00.00 Encounter for general adult medical examination without abnormal findings (principal); N52.9 Male erectile dysfunction, unspecified

== ENCOUNTER → 2024-08-12 14:02 | Outpatient (BNVA) | payer OTHER, SELFPAY | PROVIDERS: PCP Nurse Practitioner Family; Visit Provider Nurse Practitioner Family | DX: Z00.00 Encounter for general adult medical examination without abnormal findings (principal); N52.9 Male erectile dysfunction, unspecified | CPT/HCPCS: 96127 ==

== ENCOUNTER 2024-08-22 13:47 | Outpatient (AMB) | payer OTHER, SELFPAY ==
--- OUTSIDE RECORDS SUMMARY | 2024-08-22 13:52 | XMS_ITS | Clinical Summary ---
Author Organization [facility] Address [address] [place], [place] [id number] Care Team Providers Care District Manager Major Accounts Sales Name Role Phone TanacarlitoAdrian khan Primary Care Provider [phone] Allergies Active Allergy Reactions Criticality Noted Date [...] age to complete this topic Care Teams District Manager Major Accounts Sales Relationship Specialty Start Date End Date Adrian Kamara: [phone] [address] [facility] [place] [address] PCP - General Family Medicine 08/26/20
--- OUTSIDE RECORDS SUMMARY | 2024-08-22 13:52 | XMS_ITS | Clinical Summary ---
Author Organization [facility] Address [address] [place] [address] Care Team Providers Care Feeder Loader Name Role Phone Adrian Kamara MD Primary [...] 60-74 years 1-dose series) 2023 Influenza Vaccine 11/14/2024 Hepatitis B Vaccines Aged Out No long er eligible based on patient's age to complete [place] [id number] [facility] Care Teams Feeder Loader Relationship Specialty Start Date End Date Adrian Kamara MD [address] [place] [address] PCP - General Family Medicine 04/25/23
--- NOTE | 2024-08-22 14:02 | A.OFFVIS_ITS ---
Vital Signs 08/22/24 14:05 Height 6 ft 4 in BP 130/70 Blood Pressure Location Lt brachial Position Sitting Pulse 66 Pulse Source Monitor Intake Visit Reasons: Pre-Op colonoscopy Materials Tech Required: No Accompanied by: Self / Same As Patient Allergies acetaminophen [From TYLENOL] Allergy (Unknown, Verified 08/12/24 14:06) FEELS LIKE HE IS GOING TO JUMP OUT OF MY SKIN pollen Allergy (Unknown, Uncoded 07/16/24 15:59) asthma, sinus infection Medication List - Last Reconciled 08/22/24 by Kodak Oneill NP albuterol sulfate 90 mcg/actuation (Ventolin HFA) 2 puffs inhalation Q6H PRN ascorbic acid (vitamin C) 1 g PO DAILY 90 days aspirin 81 mg PO DAILY atorvastatin 80 mg PO BEDTIME econazole nitrate 1% appl topical eszopiclone 3 mg PO BEDTIME 90 days ezetimibe 10 mg PO DAILY fluticasone propionate 50 mcg/actuation 1 spray intranasal DAILY metronidazole 0.75% appl topical omeprazole 20 mg PO DAILY ropinirole 2 mg PO BEDTIME sildenafil 25 mg PO DAILY PRN 20 days HPI Comments Details: This is a 59-year-old male patient coming in for a preop cardiovascular exam for colonoscopy and his regular follow up. Patient with a history of hyperlipidemia, and prior chest discomfort with normal stress test and echocardiogram with a mildly elevated calcium score. Today, patient reports feeling well overall and denies any cardiac symptoms including exertional chest pain, shortness of breath, palpitations, dizziness, fatigue, orthopnea, PND, leg edema, presyncope, or syncope. Patient affirms his compliance with medications. [facility] Medical History Sinusitis, acute Pruritic intertrigo Restless leg syndrome IBS (irritable bowel syndrome) Dyslipidemia Mild intermittent asthma in adult without complication Surgical History Hx of colonoscopy History of inguinal hernia repair History of lipoma Family History Father Cancer of prostate Cancer of thyroid Mother Mitral valve prolapse Skin cancer Breast cancer SVT (supraventricular tachycardia) Sister Atrial septal aneurysm Social History Housing: House Alcohol intake: current Patient Tobacco Use Status: Never used Tobacco e-Cigarette/Vaping Use: Never Used Second Hand Smoke Exposure: No service: No Current occupational status: employed Current occupation: [employer] Current occupational exposures/hazards: No Cognitive needs: No Hearing needs: No Vision needs: No Review of Systems Const Denies chills, Denies fatigue, Denies fever(s), Denies frequent falls, Denies weakness, Denies weight gain and Denies weight loss ENT Denies dizziness Card Denies chest pain, Denies leg edema, Denies lightheadedness, Denies palpitations, Denies dyspnea and Denies dyspnea on exertion Resp Denies cough, Denies dyspnea and Denies dyspnea on exertion GI Denies hematochezia Musc Denies abnormal gait, Denies muscle weakness, Denies numbness, Denies radiating pain into limb and Denies tingling Neuro Denies abnormal gait, Denies dizziness, Denies frequent falls, Denies numbness, Denies tingling and Denies weakness Endo Denies fatigue and Denies palpitations Physical Exam Vital Signs: Last Vital Signs Pulse 66 08/22/24 14:05 BP 130/70 08/22/24 14:05 Const General: cooperative, healthy appearing, comfortable and no acute distress Orientation/consciousness: patient oriented x3 HEENT Head: Yes normal to inspection Neck Neck: Yes normal visual inspection, Yes trachea midline and Yes supple Chest Chest palpation & inspection: normal inspection of the chest Resp Effort & Inspection: normal respiratory effort Auscultation: clear to auscultation bilaterally, no crackles, no rales, no rhonchi and no wheezes Cardio Jugular venous distension: no JVD Palpation: normal PMI Rate: regular rate Rhythm: regular rhythm Heart sounds: S1 normal heart sound present, S2 normal heart sound present, no click, no gallops, no murmurs and no rubs Peripheral pulses: Peripheral pulses 2+ throughout GI Inspection: Yes normal to inspection Palpation (GI): Soft to palpation Auscultation: normal bowel sounds Skin General skin exam: no rashes or lesions noted Neuro General: patient oriented x3 Extrem General: Yes normal to inspection, No no pedal edema and No calf tenderness Psych Appearance: grossly normal Mental Status: mental status grossly normal Speech and movement: Normal speech and movement present Office Procedures EKG Details: EKG today showed normal sinus rhythm, rate 66 beats per minute, right bundle branch block, left posterior fascicular block (new), with nonspecific STT wave abnormalities, [place], [place]. [id number], Complete Assessment & Plan Assessment & Plan (1) Abnormal EKG: Code(s): R94.31 - Abnormal electrocardiogram [ECG] [EKG] Plan: 08/29/2022- echo study with normally LV systolic function with an ejection fraction at 60. 08/29/2022-patient underwent treadmill stress test with a moderate workload, without any EKG changes or anginal symptoms. EKG today with bifascicular block which is new over as patient previously was only with right bundle branch block. Patient completely asymptomatic and stable. Given his EKG change, we will get a treadmill stress test to look for ischemic changes. (2) Dyslipidemia: Code(s): E78.5 - Hyperlipidemia, unspecified Category: Medical Plan: History of coronary calcium score at 124. Latest LDL at 55. Continue high-dose statin and Zetia therapy. Ideally, LDL goal less than 70. (3) Preop cardiovascular exam: Code(s): Z01.810 - Encounter for preprocedural cardiovascular examination Plan: Following the updated ETT, an addendum will be made to this note. Advised heart healthy diet, regular exercise, med compliance, and management of vascular risk factors. Follow-up in 1 year, sooner if needed. In the interim, patient will call with any concerns or change in symptoms. This note was generated using voice recognition software. While every effort has been made to ensure accuracy and proper windows system admin, there may be occasional errors that could affect the content or meaning of the described symptoms. Orders: Orders CA stress test Today I45.2 - Bifascicular block, Z01.810 - Encounter for preprocedural cardiovascular examination AMB EKG-In Office Today Z01.810 - Encounter for preprocedural cardiovascular ex amination Coding Level of Care Code Est Pt Level 4 (92785) Complex EM visit Add On G2211 Diagnoses Abnormal EKG R94.31 Dyslipidemia E78.5 Preop cardiovascular exam Z01.810 CPT Codes EKG - CPT: 61025-[id number], Complete ([id number]) Time Spent (min) 32 Comment Time spent in reviewing the chart, test results, assessment, counseling and documentation.
[2024-08-22 14:05] VITALS: BP 130/70; PULSE 66
== END 2024-08-22 14:30 | disposition home or self-care (01) ==
LOC: HO.HCS 13:48
PROVIDERS: PCP Nurse Practitioner Family
DX: R94.31 Abnormal electrocardiogram [ECG] [EKG] (principal); E78.5 Hyperlipidemia, unspecified; Z01.810 Encounter for preprocedural cardiovascular examination
CPT/HCPCS: 93010; 99214

== ENCOUNTER → 2024-08-22 13:47 | Outpatient (BNVA) | payer OTHER, SELFPAY | PROVIDERS: PCP Nurse Practitioner Family | DX: Z01.810 Encounter for preprocedural cardiovascular examination (principal); R94.31 Abnormal electrocardiogram [ECG] [EKG]; E78.5 Hyperlipidemia, unspecified; Z79.899 Other long term (current) drug therapy | CPT/HCPCS: 93005 ==

== ENCOUNTER 2024-09-05 13:23 | Observation (INO) | payer OTHER, SELFPAY ==
--- NOTE | ~2024-09-05 | XR_ITS ---
EXAMINATION: XR CHEST 1 VIEW HISTORY: CP COMPARISON: Comparison is made with the prior examination dated 04/04/2016. FINDINGS: A single AP portable view of the chest performed at 1:47 PM is submitted. The lungs are expanded and clear. There is no pleural effusion, pneumothorax, or pulmonary vascular congestion. The heart is normal in size. The bones are intact. XR/XR chest 1V IMPRESSION: No acute cardiopulmonary abnormality. Electronically signed by: Moises Evans MD 09/05/2024 01:58 PM EDT
[2024-09-05 13:33] LABS: Glucose, Whole Blood 116 mg/dL (60-115)
[2024-09-05 13:35] VITALS: BP 117/75; BP 126/67; PULSE 72; PULSE 82; RESP 16; TEMP 36.5; O2SAT 100; O2SAT 99; BMI 29.3
--- NOTE | 2024-09-05 13:39 | ECG_ITS ---
Test Reason : CHEST PAIN Blood Pressure : */* mmHG Vent. Rate : 76 BPM Atrial Rate : 76 BPM P-R Int : 184 ms QRS Dur : 146 ms QT Int : 414 ms P-R-T Axes : 48 80 8 degrees QTcB Int : 465 ms Normal sinus rhythm Right bundle branch block Abnormal ECG When compared with ECG of 28-Jul-2022 12:57, Right bundle branch block has replaced Non-specific intra-ventricular conduction block Referred By: Generic ED Physician Electronically Signed By: Sav Foreman
--- NOTE | 2024-09-05 14:12 | ED.CHESTPAIN ---
HPI - Chest Pain General Chief Complaint: Chest Pain Stated Complaint: DIZZINESS Time Seen by Provider: 09/05/24 14:12 Source: patient Mode of arrival: EMS Limitations: no limitations History of Present Illness ED Provider: HPI narrative: 59-year-old male with history of hyperlipidemia, on statins, was working out in the gym around 130 developed left-sided anterior chest pressure radiating to left arm left upper back, felt nauseous, reports becoming pale and diaphoretic, he did take aspirin in the morning his regular dose and after the symptoms began, he states the symptoms lasted approximately 30 minutes he was having minimal discomfort on my evaluation but essentially chest pain-free. For the past 2 weeks has had forearm discomfort as well not related to any physical activity. No fevers or chills no hemoptysis, he drinks 7 drinks a week, no tobacco use, no drug use. Strong family history of heart disease in the males. MD complaint: chest pain Related Data Home Medications ?Medication ?Instructions ?Recorded ?Confirmed aspirin 81 mg tablet,delayed 81 mg PO DAILY 08/02/23 08/22/24 release econazole nitrate 1 % topical cream appl topical 03/25/24 08/22/24 metronidazole 0.75 % topical cream appl topical 03/25/24 08/22/24 Previous Rx's ?Medication ?Instructions ?Recorded atorvastatin 80 mg tablet 80 mg PO BEDTIME #90 tabs 09/28/23 omeprazole 20 mg capsule,delayed 20 mg PO DAILY #90 caps 01/14/24 release ascorbic acid (vitamin C) 1,000 mg 1 g PO DAILY 90 days #90 tabs 05/02/24 tablet fluticasone propionate 50 1 spray intranasal DAILY #16 grams 06/04/24 mcg/actuation nasal spray,suspension ezetimibe 10 mg tablet 10 mg PO DAILY #90 tabs 06/13/24 eszopiclone 3 mg tablet 3 mg PO BEDTIME 90 days #90 tabs 08/07/24 ropinirole 2 mg tablet 2 mg PO BEDTIME #90 tabs 08/07/24 albuterol sulfate 90 mcg/actuation 2 puff inhalation Q6H PRN 08/12/24 aerosol inhaler (Ventolin HFA) shortness of breath or wheezing #8.5 grams sildenafil 25 mg tablet 25 mg PO DAILY PRN sexual activity 08/12/24 20 days #20 tabs Allergies Allergy/AdvReac Type Severity Reaction Status Date / Time acetaminophen [From TYLENOL] Allergy Unknown FEELS LIKE Verified 09/05/24 13:42 HE IS GOING TO JUMP OUT OF MY SKIN pollen Allergy Unknown asthma, Uncoded 07/16/24 15:59 sinus infection Review of Systems Constitutional: Constitutional: Reports as per [facility] Past Medical History Medical History Sinusitis, acute Pruritic intertrigo Restless leg syndrome IBS (irritable bowel syndrome) Dyslipidemia Mild intermittent asthma in adult without complication Surgical History Hx of colonoscopy History of inguinal hernia repair History of lipoma Family History Family History Father Cancer of prostate Cancer of thyroid Mother Mitral valve prolapse Skin cancer Breast cancer SVT (supraventricular tachycardia) Sister Atrial septal aneurysm Social History Social History Housing: House Alcohol intake: current Patient Tobacco Use Status: Never used Tobacco Smoked in Last 30 Days: No e-Cigarette/Vaping Use: Never Used Second Hand Smoke Exposure: No Use of substances other than those prescribed or required for medical reasons: Yes Substance Use Type: Marijuana Advance Directives: No Advance Directives Information Provided: Yes service: No Current occupational status: employed Current occupation: [employer] Current occupational exposures/hazards: No Cognitive needs: No Hearing needs: No Vision needs: No Physical Exam Vital Signs: Vital Signs: Last Vital Signs Temp 97.9 F 09/05/24 17:53 Pulse 67 09/05/24 17:53 Resp 16 09/05/24 17:53 BP 117/72 09/05/24 17:53 Pulse Ox 96 09/05/24 17:53 O2 Del Method Room Air 09/05/24 17:53 BMI result Body Mass Index 29.3 Const: Other: Brief physical exam Medications Administered Discontinued Medications Generic Name Dose Route Start Last Admin Trade Name Freq PRN Reason Stop Dose Admin Nitroglycerin 0.4 mg 09/05/24 14:37 09/05/24 16:23 Nitroglycerin 0.4 Mg Patch.Td24 TRANSDERMA 09/05/24 14:38 Not Given ONCE ONE Protocol Medical Decision Making Medical Decision Making [facility] Narrative: 14:45 my consideration for workup as below, ACS is the highest, ECG with right bundle branch block without any changes to suspect underlying cardiac ischemia, he is still having some minimal symptoms and saw a provider with the nitro, I redid received adequate dosage of aspirin, reached out to Dr. Foreman from Cardiology we will await troponins to determine whether she needs to be admitted all can be discharged hopefully with an expedited stress test. No hypoxic tachycardic to suspect PE this is not 10/10 pain radiating to the back of sudden onset though we will continue to suspect aortic dissection, chest x-ray to evaluate for pneumothorax, no forceful vomiting to suspect Boerhaave syndrome. Patient has 2 sets of enzymes are negative. Had a discussion with Cardiology. The history is moderate. Patient is 59. I elected to admit patient for observation. Currently in stable condition. Differential Diagnosis Differential Diagnoses: The differential diagnosis associated with the presentation includes ACS, pneumothorax, aortic dissection, PE, Boerhaave syndrome Admission/Observation Consideration of admission/observation: Escalation of care including admission/observation considered Consult Healthcare Provider Management of the patient was discussed with: Electronic Musical Instrument Repairer (Dr. Foreman from Cardiology) Lab Data [facility] Lab Attestation statement: I reviewed the patient's lab results. 09/05/24 14:18 09/05/24 14:18 Labs: Lab Results 09/05/24 09/05/24 09/05/24 Range/Units 13:29 14:18 16:41 WBC 4.8 (4.8-10.8) X10*3/uL RBC 4.41 L (4.60-5.80) X10*6/uL Hgb 14.1 (14.0-18.0) g/dl Hct 39.9 L (42.0-52.0) % MCV 90.5 (80.0-98.0) fL MCH 32.0 (27.0-33.0) pg MCHC 35.3 (31.0-36.0) g/dl RDW 12.3 (11.0-16.0) % Plt Count 211 (160-400) X10*3/uL MPV 9.8 (9.4-12.4) fL Immature Gran % (Auto) 0.4 (0.0-0.4) % Neut % (Auto) 68.1 (45-73) % Lymph % (Auto) 18.8 L (20-40) % Ogle % (Auto) 12.5 H (2-11) % Eos % (Auto) 0.0 (0-4) % Baso % (Auto) 0.2 (0-2) % Lymph # (Auto) 0.9 L (1.2-4.9) X10*3/uL Ogle # (Auto) 0.6 (0.1-1.2) X10*3/uL Eos # (Auto) 0.0 (0.0-0.4) X10*3/uL Baso # (Auto) 0.0 (0.0-0.2) X10*3/uL Abs Immat Gran (auto) 0.02 (0.00-0.03) X10*3/uL Absolute Neuts (auto) 3.3 (2.0-8.3) x10*3/uL Absolute Nucleated RBC 0.000 (0.0-0.012) X10*3/uL Nucleated RBC % (auto) 0.0 (0.0-0.2) /100WBC Sodium 141 (135-145) mmol/L Potassium 4.6 (3.3-5.1) mmol/L Chloride 109 H (96-108) mmol/L Carbon Dioxide 26 (22-29) mmol/L Anion Gap 11 L (12-20) BUN 22 H (9-16) mg/dL Creatinine 0.95 (0.5-1.4) mg/dL Estim Creat Clear Calc 110.5 Estimated GFR > 60 POC Glucose 116 H (60-115) mg/dL Random Glucose 111 (60-115) mg/dL Calcium 9.0 (8.4-10.2) mg/dL Total Bilirubin 1.0 (0.0-1.0) mg/dL AST 25 (5-37) U/L ALT 39 (0-40) U/L Alkaline Phosphatase 72 (39-117) U/L Troponin I High Sens < 2.7 < 2.7 (<3.5-35.0) ng/L Total Protein 6.3 L (6.5-8.0) g/dL Albumin 4.3 (3.5-5.0) g/dL Triglycerides 42 (<150) mg/dL Cholesterol 112 (<200) mg/dL LDL Cholesterol, Calc 49 (<100) mg/dL HDL Cholesterol 55 (>40) mg/dL TSH 0.93 (0.32-4.0) uIU/mL Independent Interpretation I performed an independent interpretation of an: EKG (76 normal sinus rhythm, right bundle-branch block, no new changes compared to prior, no changes consistent with ACS) Radiology Impression Discussion of test interpretation with radiology: I have reviewed the radiologist's reading. Radiologist Impression: XR/XR chest 1V IMPRESSION: No acute cardiopulmonary abnormality. Discharge Plan Discharge Clinical Impression: Chest pressure Patient Disposition: Admitted As Inpatient Prescriptions: No Action atorvastatin 80 mg tablet 80 mg PO BEDTIME Qty: 90 3RF omeprazole 20 mg capsule,delayed release(DR/EC) 20 mg PO DAILY Qty: 90 1RF ascorbic acid (vitamin C) 1,000 mg tablet 1 g PO DAILY 90 Days Qty: 90 1RF fluticasone propionate 50 mcg/actuation spray,suspension 1 spray intranasal DAILY Qty: 16 4RF ezetimibe 10 mg tablet 10 mg PO DAILY Qty: 90 1RF eszopiclone 3 mg tablet 3 mg PO BEDTIME 90 Days Qty: 90 0RF ropinirole 2 mg tablet 2 mg PO BEDTIME Qty: 90 1RF aspirin 81 mg tablet,delayed release (DR/EC) 81 mg PO DAILY metronidazole 0.75 % cream topical econazole nitrate 1 % cream topical albuterol sulfate [Ventolin HFA] 90 mcg/actuation HFA aerosol inhaler 2 puff inhalation Q6H PRN (Reason: shortness of breath or wheezing) Qty: 8.5 0RF sildenafil 25 mg tablet 25 mg PO DAILY PRN (Reason: sexual activity) 20 Days Qty: 20 0RF Rx Instructions: administer 30 minutes to 4 hours before activity Print Language: Kiswahili
--- OUTSIDE RECORDS SUMMARY | 2024-09-05 14:15 | XMS_ITS | Clinical Summary ---
Author Organization [facility] Address [address] [place] [address] Care Team Providers Care Behavioral Services Tech Name Role Phone Adrian Kamara MD Primary [...] complete [place] [phone] [facility] Care Teams Behavioral Services Tech Relationship Specialty Start Date End Date Ardian Kamara MD [address] [place] [address] PCP - General Family Medicine 04/25/23
[2024-09-05 14:20] LABS: MANUAL DIFF FLAG NO
[2024-09-05 14:22] LABS: Basophils Percent Auto 0.2 % (0-2); Hematocrit 39.9 % (42.0-52.0); Hemoglobin 14.1 g/dl (14.0-18.0); Imm Gran Abs Auto 0.02 X10*3/uL (0.00-0.03); Imm Gran Pct Auto 0.4 % (0.0-0.4); Lymphocytes Absolute Auto 0.9 X10*3/uL (1.2-4.9); Lymphocytes Percent Auto 18.8 % (20-40); Mean Corpuscular HGB Conc 35.3 g/dl (31.0-36.0); Mean Corpuscular Volume 90.5 fL (80.0-98.0); Mean Platelet Volume 9.8 fL (9.4-12.4); Monocytes Absolute Auto 0.6 X10*3/uL (0.1-1.2); Monocytes Percent Auto 12.5 % (2-11); Neutrophils Absolute Auto 3.3 x10*3/uL (2.0-8.3); Neutrophils Percent Auto 68.1 % (45-73); Platelet Count 211 X10*3/uL (160-400); Red Blood Count 4.41 X10*6/uL (4.60-5.80); Red Cell Distribution Width 12.3 % (11.0-16.0); White Blood Count 4.8 X10*3/uL (4.8-10.8)
[2024-09-05 14:36] LABS: Alanine Aminotransferase 39 U/L (0-40); Albumin Level 4.3 g/dL (3.5-5.0); Alkaline Phosphatase 72 U/L (39-117); Anion Gap 11 (12-20); Aspartate Amino Transferase 25 U/L (5-37); Blood Urea Nitrogen 22 mg/dL (9-16); Carbon Dioxide 26 mmol/L (22-29); Chloride 109 mmol/L (96-108); Creatinine Clr Calc Pharmacy 110.5; Estimated Glomerular Filt Rate > 60; Glucose Random 111 mg/dL (60-115); Potassium 4.6 mmol/L (3.3-5.1); Sodium 141 mmol/L (135-145); Total Protein 6.3 g/dL (6.5-8.0)
[2024-09-05 14:45] LABS: Troponin-I High Sensitivity < 2.7 ng/L (<3.5-35.0)
[2024-09-05 15:11] VITALS: BP 109/66; PULSE 69; RESP 18; O2SAT 97
--- NOTE | 2024-09-05 15:14 | PC.NURSE ---
sensation in left arm/shoulder/chest continues to improve.
[2024-09-05 15:19] LABS: Cholesterol 112 mg/dL (<200); HDL Cholesterol 55 mg/dL (>40); LDL Cholesterol Calculated 49 mg/dL (<100); Triglycerides 42 mg/dL (<150)
[2024-09-05 16:00] VITALS: BP 114/56; PULSE 57; RESP 16; TEMP 36.3; O2SAT 99
[2024-09-05 16:42] VITALS: BP 111/67; PULSE 64; RESP 16; TEMP 36.8; O2SAT 97
--- NOTE | 2024-09-05 16:49 | MHC.EDTECH ---
This pct assumed care of Patient at 1500 ,vitals taken ,repeated trop drawn and sent to lab .
[2024-09-05 17:22] LABS: Troponin-I High Sensitivity < 2.7 ng/L (<3.5-35.0)
[2024-09-05 17:53] VITALS: BP 117/72; PULSE 67; RESP 16; TEMP 36.6; O2SAT 96
--- NOTE | 2024-09-05 19:41 | P.HPHOSP_ITS ---
History of Present Illness Date of Service: 09/05/24 Attending physician on admission: Erin Waller Chief Complaint: Chest pain Pt is a 59-year-old male with a PMH significant for?HLD, GERD, and restless legs who presents to the ED with?for evaluation of left-sided chest, arm, and back pain. Pt reports was working out earlier this afternoon when had sudden onset left-sided chest pain/pressure and numbness that radiated to left shoulder, arm, and back. Describes the initial feeling as a ?shock?. Became lightheaded and dizzy as well as nauseous and out of breath. Symptoms lasted approximately 30 minutes before resolving. States he has had some tingling in his left arm for the past few weeks while working out which he initially thought could be a pinched nerve, but never experienced similar symptoms as he had today. Pt has been seen by Cardiology in the past with recent carotid ultrasound on 05/21/2024 showing 0-49% stenosis of right and left carotids. Has had previous normal stress test and echo on 08/29/2022. Currently pt reports still feels weak and dizzy, but otherwise left-sided chest pain/pressure/numbness has resolved. No difficulty breathing or SOB. No fever, chills, nausea, vomiting, diarrhea, abdominal pain. Denies headache or acute vision changes. No facial droop, hemiparesis, dysarthria, or difficulty word finding. In the ED pt's vitals stable and WNL. Labs were overall grossly unremarkable and around baseline for pt. Serial troponins negative. No leukocytosis. Stable H&H. No significant electrolyte abnormalities. Renal function baseline. Hepatic function WNL. Lipid panel WNL. CXR showed no acute cardiopulmonary process. EKG demonstrated normal sinus rhythm with RBBB but no evidence of ischemic changes, similar to prior. Pt is admitted to the hospital under observation for treatment and further evaluation of left-sided chest pain. Review of Systems 2 Review of Systems: Negative except for that which is stated in the HPI. [facility] Medical History Sinusitis, acute Pruritic intertrigo Restless leg syndrome IBS (irritable bowel syndrome) Dyslipidemia Mild intermittent asthma in adult without complication Family History Father Cancer of prostate Cancer of thyroid Mother Mitral valve prolapse Skin cancer Breast cancer SVT (supraventricular tachycardia) Sister Atrial septal aneurysm Surgical History Hx of colonoscopy History of inguinal hernia repair History of lipoma Social History Housing: House Alcohol intake: current Patient Tobacco Use Status: Never used Tobacco Smoked in Last 30 Days: No e-Cigarette/Vaping Use: Never Used Second Hand Smoke Exposure: No Use of substances other than those prescribed or required for medical reasons: Yes Substance Use Type: Marijuana Advance Directives: No Advance Directives Information Provided: Yes service: No Current occupational status: employed Current occupation: [employer] Current occupational exposures/hazards: No Cognitive needs: No Hearing needs: No Vision needs: No Meds Allergies Allergy/AdvReac Type Severity Reaction Status Date / Time acetaminophen [From TYLENOL] Allergy Unknown FEELS LIKE Verified 09/05/24 13:42 HE IS GOING TO JUMP OUT OF MY SKIN pollen Allergy Unknown asthma, Uncoded 07/16/24 15:59 sinus infection Home Medications ?Medication ?Instructions ?Recorded ?Confirmed ?Last Taken ?Type aspirin 81 mg tablet,delayed 81 mg PO DAILY 08/02/23 08/22/24 Unknown History release econazole nitrate 1 % topical cream appl topical 03/25/24 08/22/24 Unknown History metronidazole 0.75 % topical cream appl topical 03/25/24 08/22/24 Unknown History Physical Exam 2 Vital Signs and Narrative: Vital Signs: Last Vital Signs Temp 97.9 F 09/05/24 17:53 Pulse 67 09/05/24 17:53 Resp 16 09/05/24 17:53 BP 117/72 09/05/24 17:53 Pulse Ox 96 09/05/24 17:53 O2 Del Method Room Air 09/05/24 17:53 BMI result Body Mass Index 29.3 General: AOx3, no acute distress Resp: CTA bilaterally CVS: S1, S2, RRR GI: +BS, NT, no distention Skin: Warm, dry Neuro: Cranial nerves II-XII grossly intact bilaterally. Motor grossly intact bilaterally. No focal deficits noted. Extremities: No edema Psych: Appropriate affect Results Labs 09/05/24 14:18 09/05/24 14:18 Labs: Laboratory Results - last 24 hr 09/05/24 09/05/24 13:29 14:18 MCV 90.5 MCH 32.0 MCHC 35.3 RDW 12.3 Plt Count 211 MPV 9.8 Immature Gran % (Auto) 0.4 Neut % (Auto) 68.1 Lymph % (Auto) 18.8 L Bartholomew % (Auto) 12.5 H Eos % (Auto) 0.0 Baso % (Auto) 0.2 Lymph # (Auto) 0.9 L Bartholomew # (Auto) 0.6 Eos # (Auto) 0.0 Baso # (Auto) 0.0 Abs Immat Gran (auto) 0.02 Absolute Neuts (auto) 3.3 Absolute Nucleated RBC 0.000 Nucleated RBC % (auto) 0.0 Anion Gap 11 L Estim Creat Clear Calc 110.5 Estimated GFR > 60 POC Glucose 116 H Random Glucose 111 Calcium 9.0 Total Bilirubin 1.0 AST 25 ALT 39 Alkaline Phosphatase 72 Total Protein 6.3 L Albumin 4.3 Triglycerides 42 Cholesterol 112 LDL Cholesterol, Calc 49 HDL Cholesterol 55 Imaging Radiologist's Impressions: Impressions Chest X-Ray 09/05/24 13:50 IMPRESSION: No acute cardiopulmonary abnormality. Electronically signed by: Moises Evans MD 09/05/2024 01:58 PM EDT RP Assessment and Plan (1) Chest pain: Status: Acute Plan Pt is a 59-year-old male with a PMH significant for?HLD, GERD, and restless legs who presents to the ED with?for evaluation of left-sided chest, arm, and back pain. Pt is admitted to the hospital under observation for treatment and further evaluation of left-sided chest pain. Chest pain Pt experienced 15 minute episode of left-sided chest pain/pressure/numbness radiating to left shoulder, arm, and back ED workup unremarkable, including negative serial troponins and nonischemic EKG Pt with previous negative stress test and echocardiogram in 2022 Carotid ultrasound in 05/2024 negative for significant carotid stenosis Will get echocardiogram Repeat troponin in the morning Cardiology consult Monitor on telemetry HLD Lipid profile WNL Continue aspirin, statin, ezetimibe Restless leg syndrome Continue ropinirole Full Code Attending:?Dr. Waller DVT Prophylaxis: Pt ambulatory, here for observation Pt will be admitted to the hospital under observation for treatment and further evaluation of left-sided chest and side pain concerning for stable angina. Pt will require close cardiac monitoring as well as additional workup with echocardiogram and specialist consultation with Cardiology. Quality Stroke Does the patient have a stroke diagnosis?: No VTE Prior VTE?: No VTE Risk Level:: Medical - moderate - high VTE Device Contraindication: Treatment Not Indicated VTE Drug Contraindication: Treatment Not Indicated
[2024-09-05 20:18] LABS: TSH reflex Free T4 0.93 uIU/mL (0.32-4.0)
--- NOTE | 2024-09-05 21:42 | PHA.MEDREC ---
Pharmacy Consult ? Medication Reconciliation Pharmacy has completed the medication reconciliation. Spoke to patient at bedside, noted he took his ropinerole tonight already. Patient had rx bottles at bedside, took his eszopiclone bottle to be labeled in pharmacy so pt can receive tonight.
[2024-09-05 22:19] VITALS: BP 105/65; PULSE 70; RESP 15; TEMP 36.7; O2SAT 96
[2024-09-05] MEDS: ESZOPICLONE 3 MG 3 EACH PO (22:21)
[2024-09-05] MEDS: Aspirin Enteric Coated 81 MG TABLET.DR PO (22:21)
--- NOTE | 2024-09-05 22:33 | MHC.EDTECH ---
2200 rounding done ,vitals taken ,Patient belongings list done ,Snacks offered ,Patient ate 2 sandwiches ,and Pudding ,drank 240 ml gingerale .
[2024-09-06 00:30] VITALS: BP 99/48; PULSE 60; RESP 16; TEMP 36.9; O2SAT 97
[2024-09-06 02:20] VITALS: BMI 29.1
[2024-09-06 02:43] VITALS: BP 139/70; PULSE 66; RESP 18; TEMP 36.4; O2SAT 98
[2024-09-06] MEDS: Omeprazole 20 MG CAPSULE.DR PO (05:38)
--- NOTE | 2024-09-06 07:00 | CA_ITS ---
Transthoracic Echocardiogram Patient (Last, First, Middle): Mitchell Villagomez E Gender: Male Date of : 1965 Age: 59 Procedure Date: 09/06/2024 Procedure Type: Transthoracic Echocardiogram [place] [facility] [place]: 193.04 cm Weight: 107.96 kg BSA: 2.39 m2 Heart Rate: bpm BP: 113 / 68 mmHg Gis Instructor: Referring MD: Erin Waller MD Symptoms: chest pain Study Quality: Good ECG Rhythm: Sinus Conclusions: - Normal left ventricular size and systolic function. There is mildly increased left ventricular wall thickness. The visually estimated ejection fraction is between 60-65%. - Normal right ventricular cavity size and systolic function. Findings Left Ventricle Normal left ventricular size and systolic function. There is mildly increased left ventricular wall thickness. The visually estimated ejection fraction is between 60-65%. There is no evidence of regional wall motion abnormalities. Diastolic function is normal for age. Right Ventricle Normal right ventricular cavity size and systolic function. Atria The left atrium is mildly dilated. The right atrium is normal in size. Aortic Valve Normal aortic valve structure and function. There is no aortic valve stenosis. There is no aortic valve regurgitation. Mitral Valve The mitral valve appears normal. There is trace mitral valve regurgitation. There is no mitral valve stenosis. Pulmonic Valve The pulmonic valve is normal. There is trace pulmonic valve regurgitation. Tricuspid Valve Normal tricuspid valve structure. There is trace tricuspid valve regurgitation. Normal right atrial pressure. There is no evidence of pulmonary hypertension. Great Vessels All visible segments of the aorta are normal in size. The visualized portions of the pulmonary artery and branches are normal. Venous The inferior vena cava is normal in size and collapses greater than 50% with inspiration. Pericardium/Pleural There is no evidence of pericardial effusion. Measurements 2D Linear Measurements IVSd: 1.29 0.6-0.9/0.6-1.0 cm LVIDd: 4.81 3.9-5.3/4.2-5.9 cm LVIDd Index: 2.01 2.4-3.2/2.2-3.1 cm/m2 LVIDs: 2.61 2.0-3.6 cm LVPWd: 1.26 0.7-1.1 cm Ao Root: 3.80 2.1-3.5 cm LA Diam: 3.80 2.7-3.8/3.0-4.0 cm LAIDs Index: 1.59 1.5-2.3 cm/m2 LV Mass: 298.90 67-162/88-224 g LV Mass Index: 125.06 43-95/49-115 g/m2 LVOT Diam: 2.40 3.0+(-)1.3 cm Mitral Valve MV Pk E: 0.76 MV PK A: 0.72 MV Decel Time: 216.00 E/A: 1.10 E'Lateral: 8.27 E'Medial: 8.16 E/E' Med: 9.30 E/E' Lat: 9.20 PHT: 63.00 MVA PHT: 3.49 Decel [place]: 3.51 Aortic Valve AoV Pk Min: 1.42 AoV Mn Min: 0.98 AoV VTI: 0.35 AoV Pk Grad: 8.00 Aov Mn Grad: 5.00 ISSAC Cont.VTI: 3.22 LVOT LVOT Pk Min: 1.17 LVOT Mn Min: 0.80 LVOT VTI: 0.25 LVOT Pk Grad: 5.00 LVOT Mn Grad: 3.00 LVOT Diam: 2.40 LVOT Area: 4.52 Diastolic Function MV Pk E: 0.76 MV Pk A: 0.72 E/A: 1.10 E'Medial: 8.16 E/E' Med: 9.30 E' Laterial: 8.27 E/E' Lat: 9.20 Right Ventricle TAPSE (mm): 30.00 TVS' Min: 13.00 Tricuspid Valve TR Pk Min: 2.02 TR Pk Grad: 16.00 RA Press: 3.00 RVSP: 19.00 Great Vessels Aorta Ao Root-2D: 3.80 2.0-3.7 cm Ao Asc: 3.30 2.1-3.4 cm Pulmonary Valve PV Pk Min: 0.90 Peak PV Grad: 3.00 Updated in Other Vendor System with Status of Final Sav Foreman MD electronically signed on 09/06/2024 3:35:14 PM with status of Final
[2024-09-06 07:22] LABS: Hematocrit 42.3 % (42.0-52.0); Hemoglobin 14.3 g/dl (14.0-18.0); Mean Corpuscular HGB Conc 33.8 g/dl (31.0-36.0); Mean Corpuscular Hemoglobin 31.3 pg (27.0-33.0); Mean Corpuscular Volume 92.6 fL (80.0-98.0); Mean Platelet Volume 9.9 fL (9.4-12.4); Platelet Count 199 X10*3/uL (160-400); Red Blood Count 4.57 X10*6/uL (4.60-5.80); Red Cell Distribution Width 12.7 % (11.0-16.0); White Blood Count 4.6 X10*3/uL (4.8-10.8)
[2024-09-06 07:40] LABS: Anion Gap 13 (12-20); Blood Urea Nitrogen 16 mg/dL (9-16); Carbon Dioxide 27 mmol/L (22-29); Chloride 107 mmol/L (96-108); Creatinine Clr Calc Pharmacy 120.7; Estimated Glomerular Filt Rate > 60; Glucose Random 91 mg/dL (60-115); Potassium 3.8 mmol/L (3.3-5.1); Sodium 143 mmol/L (135-145)
[2024-09-06 07:47] VITALS: BP 113/68; PULSE 54; RESP 14; TEMP 36.3; O2SAT 97
[2024-09-06 07:51] LABS: Troponin-I High Sensitivity < 2.7 ng/L (<3.5-35.0)
[2024-09-06] MEDS: metroNIDAZOLE 0.75 % Gel 45 GM TUBE 1 APPL TOPICAL (08:50)
[2024-09-06] MEDS: Atorvastatin Calcium 80 MG TABLET PO (08:50)
[2024-09-06] MEDS: Aspirin Enteric Coated 81 MG TABLET.DR PO (08:50)
[2024-09-06] MEDS: Ezetimibe 10 MG TABLET PO (08:51)
[2024-09-06] MEDS: Ascorbic Acid 500 MG TABLET 1000 MG PO (08:51)
[2024-09-06] MEDS: 0.9 % Sodium Chloride Flush 3 ML SYRINGE IVFLUSH (08:54)
[2024-09-06] MEDS: Fluticasone Propionate Nasal 16 GM SPRAY 1 SPRAY NOSTRIL-B (08:54)
--- NOTE | 2024-09-06 09:51 | MHC.CM.PN ---
Addendum entered by Rossana William RN 09/06/24 15:48: Patient medically cleared for dc home self care via private transport. Original Note: LOO delivered. Patient lives in a home w/ . Functionally independent. Denies use of services or DME. PCP Adrian Cook [employer] Reports he has an HCP naming his , Jackeline, as HCA. Copy requested. DP: Home self care, transport. CM will continue to follow.
--- NOTE | 2024-09-06 11:51 | P.CONCA_ITS ---
History of Present Illness History of Present Illness Date of Service: 09/06/24 Requesting physician: Tricia Murray Chief complaint: Chest Pain, RBBB Narrative: [age] year gentleman who is here for chest discomfort. He previously had episode of chest pain in 2022 when he had workup done including exercise stress test where he was able to exercise to 8 metabolic equivalents without any significant ECG changes and nuclear perfusion imaging was normal. Echocardiography was also normal at that time. Previous to that he had a coronary calcium score done which was 124 with 120 being in the left main. He was exercising in the gym when he started feeling a shock-like sensation on the left side of the chest and arm and the back. He said his whole arm and chest felt like as if he has hit the funny bone. He also became dizzy and short of breath. He said he was exercising so he stopped and drove to his mother 5 minutes away and while he was with her he called EMS. He is saying this episode lasted for approximately 30 minutes. EKG showed right bundle-branch block as before without any dynamic changes. His biomarkers are negative. He is saying he has persistent left arm numbness for 3 weeks which is still present but rest of the symptoms have improved. He is complaining of neck pain and is having trouble turning the neck to the right side. [facility] Past Medical History Medical History Sinusitis, acute Pruritic intertrigo Restless leg syndrome IBS (irritable bowel syndrome) Dyslipidemia Mild intermittent asthma in adult without complication Family History Family History Father Cancer of prostate Cancer of thyroid Mother Mitral valve prolapse Skin cancer Breast cancer SVT (supraventricular tachycardia) Sister Atrial septal aneurysm Surgical History Surgical History Hx of colonoscopy History of inguinal hernia repair History of lipoma Social History Social History Household Members: Spouse Housing: House Do you presently have visiting nurse or other home services: No Alcohol intake: current Patient Tobacco Use Status: Never used Tobacco Smoked in Last 30 Days: No e-Cigarette/Vaping Use: Never Used Second Hand Smoke Exposure: No Use of substances other than those prescribed or required for medical reasons: Yes Substance Use Type: Marijuana Currently Displaying Signs/Symptoms of Drug Intoxication Withdrawal: No Have you been hit, kicked, punched, or otherwise hurt by someone within the past year? If so, by whom?: No Do you feel safe in your current relationship?: Yes Is there a partner from a previous relationship who is making you feel unsafe now?: No Are you made to feel afraid or neglected: No Advance Directives: No Advance Directives Information Provided: Yes Do you have a plan to hurt others: No Plan Recently lost weight without trying: No Eating poorly because of decreased appetite: No Nutrition Risks: No Nutritional Risk Poor oral hygiene: No service: No Current occupational status: employed Current occupation: [employer] Current occupational exposures/hazards: No Cognitive needs: No Hearing needs: No Vision needs: No Meds Allergies Allergy/AdvReac Type Severity Reaction Status Date / Time acetaminophen [From TYLENOL] Allergy Unknown FEELS LIKE Verified 09/05/24 13:42 HE IS GOING TO JUMP OUT OF MY SKIN pollen Allergy Unknown asthma, Uncoded 07/16/24 15:59 sinus infection Active Medications: Current Medications Acetaminophen (Acetaminophen 325 Mg Tablet) 650 mg PO Q6H PRN PRN Reason: Pain, Mild 1-3,fever,headache Albuterol Sulfate (Albuterol Sulfate 90 Mcg 8 Gm Inhaler) 2 puff INHALE Q6H PRN PRN Reason: shortness of breath or wheezing Ascorbic Acid (Ascorbic Acid 500 Mg Tablet) 1,000 mg PO DAILY [facility] Last Admin: 09/06/24 08:51 Dose: 1,000 mg Aspirin (Aspirin Enteric Coated 81 Mg Tablet.Dr) 81 mg PO DAILY [facility] Last Admin: 09/06/24 08:50 Dose: 81 mg Atorvastatin Calcium (Atorvastatin Calcium 80 Mg Tablet) 80 mg PO DAILY [facility] Last Admin: 09/06/24 08:50 Dose: 80 mg Betamethasone Dipropion Augmented (Betamethasone Dip Aug 0.05% Cr 15 Gm Tube) 1 appl TOPICAL BID PRN PRN Reason: Itching Calcium Carbonate (Calcium Carbonate 750 Mg Tab.Chew) 750 mg PO Q4H PRN PRN Reason: Heartburn Ezetimibe (Ezetimibe 10 Mg Tablet) 10 mg PO DAILY [facility] Last Admin: 09/06/24 08:51 Dose: 10 mg Fluticasone Propionate (Fluticasone Propionate Nasal 16 Gm [place]) 1 spray NOSTRIL-B DAILY [facility] Last Admin: 09/06/24 08:54 Dose: 1 spray Magnesium Hydroxide (Milk Of Magnesia 30 Ml Oral.Susp) 30 ml PO DAILY PRN PRN Reason: Constipation Melatonin (Melatonin 3 Mg Tablet) 6 mg PO BEDTIME PRN PRN Reason: Insomnia Metronidazole (Metronidazole 0.75 % Gel 45 Gm Tube) 1 appl TOPICAL DAILY [facility] Last Admin: 09/06/24 08:50 Dose: 1 appl Pt Own (Eszopiclone (3 Mg Tablet)) 3 mg PO BEDTIME [facility] Last Admin: 09/05/24 22:21 Dose: 3 mg Omeprazole (Omeprazole 20 Mg Capsule.Dr) 20 mg PO DAILY@629 [facility] Last Admin: 09/06/24 05:38 Dose: 20 mg Ondansetron HCl (Ondansetron Hcl 4 Mg/2 Ml Vial) 4 mg IVPUSH Q8H PRN PRN Reason: Nausea and Vomiting Ropinirole HCl (Ropinirole Hcl 2 Mg Tablet) 2 mg PO BEDTIME [facility] Last Admin: 09/05/24 22:23 Dose: Not Given Sodium Chloride (0.9 % Sodium Chloride Flush 3 Ml Syringe) 3 ml IVFLUSH QSHIFT [facility] Last Admin: 09/06/24 08:54 Dose: 3 ml Home Medications ?Medication ?Instructions ?Recorded ?Confirmed ?Last Taken ?Type aspirin 81 mg tablet,delayed 81 mg PO DAILY 08/02/23 09/05/24 09/05/24 History release metronidazole 0.75 % topical cream 1 appl topical DAILY 03/25/24 09/05/24 09/05/24 History atorvastatin 80 mg tablet 80 mg PO DAILY 09/05/24 09/05/24 09/05/24 History clobetasol 0.05 % topical cream 1 appl topical BID PRN Itching 09/05/24 09/05/24 09/05/24 History omeprazole 20 mg capsule,delayed 20 mg PO DAILY@0630 09/05/24 09/05/24 09/05/24 History release Physical Exam 2 Vital Signs: Vital Signs: Last Vital Signs Temp 97.3 F 09/06/24 07:47 Pulse 54 09/06/24 07:47 Resp 14 09/06/24 07:47 BP 113/68 09/06/24 07:47 Pulse Ox 97 09/06/24 07:47 O2 Del Method Room Air 09/06/24 07:47 BMI result Body Mass Index 29.1 GENERAL APPEARANCE: in no acute distress, pleasant. NECK: no carotid bruit, no jugular venous distention. Tenderness over lower cervical spine. SKIN: no suspicious lesions, warm and dry. HEART: no murmurs, regular rate and rhythm. LUNGS: clear to auscultation bilaterally. ABDOMEN: soft, nontender. EXTREMITIES: no edema. PERIPHERAL PULSES: equal. NEUROLOGIC: No gross deficits, AAO X 3 Objective Labs and Meds 09/06/24 06:39 09/06/24 06:39 Lab results: Laboratory Results - last 24 hr 09/05/24 09/05/24 09/05/24 13:29 14:18 16:41 WBC 4.8 RBC 4.41 L Hgb 14.1 Hct 39.9 L MCV 90.5 MCH 32.0 MCHC 35.3 RDW 12.3 Plt Count 211 MPV 9.8 Immature Gran % (Auto) 0.4 Neut % (Auto) 68.1 Lymph % (Auto) 18.8 L Crosby % (Auto) 12.5 H Eos % (Auto) 0.0 Baso % (Auto) 0.2 Lymph # (Auto) 0.9 L Crosby # (Auto) 0.6 Eos # (Auto) 0.0 Baso # (Auto) 0.0 Abs Immat Gran (auto) 0.02 Absolute Neuts (auto) 3.3 Absolute Nucleated RBC 0.000 Nucleated RBC % (auto) 0.0 Sodium 141 Potassium 4.6 Chloride 109 H Carbon Dioxide 26 Anion Gap 11 L BUN 22 H Creatinine 0.95 Estim Creat Clear Calc 110.5 Estimated GFR > 60 POC Glucose 116 H Random Glucose 111 Calcium 9.0 Total Bilirubin 1.0 AST 25 ALT 39 Alkaline Phosphatase 72 Troponin I High Sens < 2.7 < 2.7 Total Protein 6.3 L Albumin 4.3 Triglycerides 42 Cholesterol 112 LDL Cholesterol, Calc 49 HDL Cholesterol 55 TSH 0.93 09/06/24 06:39 WBC 4.6 L RBC 4.57 L Hgb 14.3 Hct 42.3 MCV 92.6 MCH 31.3 MCHC 33.8 RDW 12.7 Plt Count 199 MPV 9.9 Immature Gran % (Auto) Neut % (Auto) Lymph % (Auto) Crosby % (Auto) Eos % (Auto) Baso % (Auto) Lymph # (Auto) Crosby # (Auto) Eos # (Auto) Baso # (Auto) Abs Immat Gran (auto) Absolute Neuts (auto) Absolute Nucleated RBC 0.000 Nucleated RBC % (auto) 0.0 Sodium 143 Potassium 3.8 Chloride 107 Carbon Dioxide 27 Anion Gap 13 BUN 16 Creatinine 0.87 Estim Creat Clear Calc 120.7 Estimated GFR > 60 POC Glucose Random Glucose 91 Calcium 9.0 Total Bilirubin AST ALT Alkaline Phosphatase Troponin I High Sens < 2.7 Total Protein Albumin Triglycerides Cholesterol LDL Cholesterol, Calc HDL Cholesterol TSH Imaging Radiologist's impression: Impressions Chest X-Ray 09/05/24 13:50 IMPRESSION: No acute cardiopulmonary abnormality. Electronically signed by: Moises Evans MD 09/05/2024 01:58 PM EDT RP Assessment and Plan (1) Chest pain: Status: Acute Plan [age] year gentleman who is presenting with chest pain. He had workup done in 2022 which was unremarkable. He has spine issues with this problems in the lower back and right-sided leg pain chronically. He has active neck discomfort right now in his unable to turn his neck to the right side and has numbness in his forearm for 3 weeks. Some of his symptoms clearly are linked with cervical spine issue and can be a radiculopathy. Consider imaging to understand this better. In terms of the chest discomfort he had a fairly atypical sounding chest pain episode. His biomarkers are negative x3. His EKG has no dynamic changes and shows chronic right bundle-branch block. We will do echocardiography today to assess for any abnormality including wall motion abnormalities. If echo is normal and he ambulates a hallways without any significant symptoms currently I think he can return home and we can arrange exercise stress test for him in the next week. Obviously if the cervical spine imaging shows something really obvious which can explain all these symptoms then we can accordingly change our strategy and do testing down the line. Thank you for allowing me to participate in the care of your patient. Please feel free to contact me if you have any questions. Procedures Date of Service Date of Service: 09/06/24
[2024-09-06 11:53] VITALS: BP 119/64; PULSE 56; RESP 18; TEMP 36.3; O2SAT 98
--- NOTE | 2024-09-06 14:15 | P.PNIM_ITS ---
Subjective Subjective Date of Service: 09/06/24 Review of Systems Follow up chest pain without pain left side numbness to arm/forearm, hands no nausea or vomiting Physical Exam 2 Vital Signs: Vital Signs: Last Vital Signs Temp 97.3 F 09/06/24 11:53 Pulse 56 09/06/24 11:53 Resp 18 09/06/24 11:53 BP 119/64 09/06/24 11:53 Pulse Ox 98 09/06/24 11:53 O2 Del Method Room Air 09/06/24 11:53 BMI result Body Mass Index 29.1 Appearing in no acute distress lung sounds are clear to auscultation heart regular rate rhythm, clear S1, S2 positive bowel sounds, abdomen is soft, nontender neuro patient is alert x3, no focal deficits Objective Data Active Medications Acetaminophen (Acetaminophen 325 Mg Tablet) 650 mg PO Q6H PRN PRN Reason: Pain, Mild 1-3,fever,headache Albuterol Sulfate (Albuterol Sulfate 90 Mcg 8 Gm Inhaler) 2 puff INHALE Q6H PRN PRN Reason: shortness of breath or wheezing Ascorbic Acid (Ascorbic Acid 500 Mg Tablet) 1,000 mg PO DAILY [facility] Last Admin: 09/06/24 08:51 Dose: 1,000 mg Documented By: JOSÉ ANTONIO Aspirin (Aspirin Enteric Coated 81 Mg Tablet.) 81 mg PO DAILY [facility] Last Admin: 09/06/24 08:50 Dose: 81 mg Documented By: JOSÉ ANTONIO Atorvastatin Calcium (Atorvastatin Calcium 80 Mg Tablet) 80 mg PO DAILY [facility] Last Admin: 09/06/24 08:50 Dose: 80 mg Documented By: JOSÉ ANTONIO Betamethasone Dipropion Augmented (Betamethasone Dip Aug 0.05% Cr 15 Gm Tube) 1 appl TOPICAL BID PRN PRN Reason: Itching Calcium Carbonate (Calcium Carbonate 750 Mg Tab.Chew) 750 mg PO Q4H PRN PRN Reason: Heartburn Ezetimibe (Ezetimibe 10 Mg Tablet) 10 mg PO DAILY [facility] Last Admin: 09/06/24 08:51 Dose: 10 mg Documented By: JOSÉ ANTONIO Fluticasone Propionate (Fluticasone Propionate Nasal 16 Gm [place]) 1 spray NOSTRIL-B DAILY [facility] Last Admin: 09/06/24 08:54 Dose: 1 spray Documented By: HO.PHANLYM Magnesium Hydroxide (Milk Of Magnesia 30 Ml Oral.Susp) 30 ml PO DAILY PRN PRN Reason: Constipation Melatonin (Melatonin 3 Mg Tablet) 6 mg PO BEDTIME PRN PRN Reason: Insomnia Metronidazole (Metronidazole 0.75 % Gel 45 Gm Tube) 1 appl TOPICAL DAILY [facility] Last Admin: 09/06/24 08:50 Dose: 1 appl Documented By: JOSÉ ANTONIO Pt Own (Eszopiclone (3 Mg Tablet)) 3 mg PO BEDTIME [facility] Last Admin: 09/05/24 22:21 Dose: 3 mg Documented By: FENG Omeprazole (Omeprazole 20 Mg Capsule.) 20 mg PO DAILY@0630 [facility] Last Admin: 09/06/24 05:38 Dose: 20 mg Documented By: JUAN DIEGO Ondansetron HCl (Ondansetron Hcl 4 Mg/2 Ml Vial) 4 mg IVPUSH Q8H PRN PRN Reason: Nausea and Vomiting Ropinirole HCl (Ropinirole Hcl 2 Mg Tablet) 2 mg PO BEDTIME [facility] Last Admin: 09/05/24 22:23 Dose: Not Given Documented By: FENG Non-Admin Reason: See Note Comments: pt took his own Sodium Chloride (0.9 % Sodium Chloride Flush 3 Ml Syringe) 3 ml IVFLUSH QSHIFT [facility] Last Admin: 09/06/24 08:54 Dose: 3 ml Documented By: JOSÉ ANTONIO Labs 09/06/24 06:39 09/06/24 06:39 Labs: Laboratory Results - last 24 hr 09/05/24 09/06/24 14:18 06:39 MCV 90.5 92.6 MCH 32.0 31.3 MCHC 35.3 33.8 RDW 12.3 12.7 Plt Count 211 199 MPV 9.8 9.9 Immature Gran % (Auto) 0.4 Neut % (Auto) 68.1 Lymph % (Auto) 18.8 L Barton % (Auto) 12.5 H Eos % (Auto) 0.0 Baso % (Auto) 0.2 Lymph # (Auto) 0.9 L Barton # (Auto) 0.6 Eos # (Auto) 0.0 Baso # (Auto) 0.0 Abs Immat Gran (auto) 0.02 Absolute Neuts (auto) 3.3 Absolute Nucleated RBC 0.000 0.000 Nucleated RBC % (auto) 0.0 0.0 Anion Gap 11 L 13 Estim Creat Clear Calc 110.5 120.7 Estimated GFR > 60 > 60 Random Glucose 111 91 Calcium 9.0 9.0 Total Bilirubin 1.0 AST 25 ALT 39 Alkaline Phosphatase 72 Total Protein 6.3 L Albumin 4.3 Triglycerides 42 Cholesterol 112 LDL Cholesterol, Calc 49 HDL Cholesterol 55 TSH 0.93 Assessment and Plan (1) Right bundle branch block: Status: Acute Plan 59-year-old male with a PMH significant for?HLD, GERD, and restless legs who presents to the ED with?for evaluation of left-sided chest, arm, and back pain. Pt is admitted to the hospital under observation for treatment and further evaluation of left-sided chest pain. Chest pain Pt experienced 15 minute episode of left-sided chest pain/pressure/numbness radiating to left shoulder, arm, and back ED workup unremarkable, including negative serial troponins and nonischemic EKG echocardiogram Cardiology consult> seems more like cervical radiculopathy or some nerve issue rather than simulation analyst on telemetry Possible cervical radiculopathy Start Toradol will discuss with neurology HLD Lipid profile WNL Continue aspirin, statin, ezetimibe Restless leg syndrome Continue ropinirole Full Code DVT Prophylaxis: Pt ambulatory, here for observation Quality Stroke Does the patient have a stroke diagnosis?: No VTE Prior VTE?: No VTE Risk Level:: Medical - moderate - high VTE Device Contraindication: Treatment Not Indicated VTE Drug Contraindication: Treatment Not Indicated
[2024-09-06 15:13] VITALS: BP 118/71; PULSE 59; RESP 16; TEMP 36.3; O2SAT 95
--- NOTE | 2024-09-06 15:47 | P.DS_ITS ---
DS: Providers Provider Date of Service: 09/06/24 Date of admission: 09/05/24 19:06 Date of discharge: 09/06/24 Primary care physician: RODRICK Shields- Consults: 09/05/24 19:42 Consult to Cardiology Routine Consulting Provider: [facility] Reason for consultation: chest pain Has provider been notified: Yes 09/06/24 11:37 Consult to Neurology Routine Consulting Provider: [facility] Reason for consultation: neck pain, numbess and tingling to left arm DS: Diagnosis Discharge Diagnosis (1) Right bundle branch block: Status: Acute DS: Summary Hospital Course Hospital Course: History and physical as per admitting provider. Pt is a 59-year-old male with a PMH significant for?HLD, GERD, and restless legs who presents to the ED with?for evaluation of left-sided chest, arm, and back pain. Pt reports was working out earlier this afternoon when had sudden onset left-sided chest pain/pressure and numbness that radiated to left shoulder, arm, and back. Describes the initial feeling as a ?shock?. Became lightheaded and dizzy as well as nauseous and out of breath. Symptoms lasted approximately 30 minutes before resolving. States he has had some tingling in his left arm for the past few weeks while working out which he initially thought could be a pinched nerve, but never experienced similar symptoms as he had today. Pt has been seen by Cardiology in the past with recent carotid ultrasound on 05/21/2024 showing 0-49% stenosis of right and left carotids. Has had previous normal stress test and echo on 08/29/2022. Currently pt reports still feels weak and dizzy, but otherwise left-sided chest pain/pressure/numbness has resolved. No difficulty breathing or SOB. No fever, chills, nausea, vomiting, diarrhea, abdominal pain. Denies headache or acute vision changes. No facial droop, hemiparesis, dysarthria, or difficulty word finding. In the ED pt's vitals stable and WNL. Labs were overall grossly unrem arkable and around baseline for pt. Serial troponins negative. No leukocytosis. Stable H&H. No significant electrolyte abnormalities. Renal function baseline. Hepatic function WNL. Lipid panel WNL. CXR showed no acute cardiopulmonary process. EKG demonstrated normal sinus rhythm with RBBB but no evidence of ischemic changes, similar to prior. Pt is admitted to the hospital under observation for treatment and further evaluation of left-sided chest pain. 59-year-old man admitted for chest pain. Patient reported experiencing 50 minutes of left-sided chest pain, pressure, numbness radiating to left shoulder, arm and back. ED workup was unremarkable including negative serial troponins and nonischemic EKG. Echocardiogram showed EF of 60-65% with no evidence of regional wall motion abnormalities or significant valvular abnormalities. Patient reports that he has a stress test scheduled next month and he will keep that appointment. He was seen evaluated by Cardiology who did not feel like symptoms were cardiac in nature but may be related to a cervical radiculopathy or other nerve issues. Possible radiculopathy. Treated with IV Toradol. Patient may continue NSAIDs at home, encouraged to take with food and only once a day and follow up with his primary care provider for MRI for better visualization of possible nerve issues. Hyperlipidemia. Lipid profile within normal limits. Continue aspirin, statin and Zetia Restless leg syndrome. Continue ropinirole Time Attestation Discharge Coordination Time (in mins): 40 Quality: Safe Use of Opioids Does Pt have an Active Cancer Diagnosis on the Problem List?: No Quality: Stroke Does the patient have a stroke diagnosis?: No Physical Exam Vital Signs: Vital Signs: Last Vital Signs Temp 97.4 F 09/06/24 15:13 Pulse 59 09/06/24 15:13 Resp 16 09/06/24 15:13 BP 118/71 09/06/24 15:13 Pulse Ox 95 09/06/24 15:13 O2 Del Method Room Air 09/06/24 15:13 BMI result Body Mass Index 29.1 Appearing in no acute distress head is normocephalic atraumatic eyes pupils are PERRLA sclera is anicteric mouth throat mucous membranes are intact and moist neck is supple no lymphadenopathy, no JVD noted lung sounds are clear to auscultation heart regular rate rhythm, clear S1, S2 positive bowel sounds, abdomen is soft, nontender neuro patient is alert x3, no focal deficits DS: Data Data Completed and Pending Labs on day of discharge: Laboratory Results - last 24 hr 09/05/24 09/05/24 09/06/24 14:18 16:41 06:39 WBC 4.6 L RBC 4.57 L Hgb 14.3 Hct 42.3 MCV 92.6 MCH 31.3 MCHC 33.8 RDW 12.7 Plt Count 199 MPV 9.9 Absolute Nucleated RBC 0.000 Nucleated RBC % (auto) 0.0 Sodium 143 Potassium 3.8 Chloride 107 Carbon Dioxide 27 Anion Gap 13 BUN 16 Creatinine 0.87 Estim Creat Clear Calc 120.7 Estimated GFR > 60 Random Glucose 91 Calcium 9.0 Troponin I High Sens < 2.7 < 2.7 TSH 0.93 Discharge Plan Discharge Anticipated Discharge Date/Time: 09/06/24 15:43 Patient Disposition: Home, Self-Care Discharge Diagnosis: Chest discomfort Left arm numbness, tingling Neck pain Referrals: Adrian Kamara, [employer] [Primary Care Provider] - 1 Week Discharge Medications: Continued ascorbic acid (vitamin C) 1,000 mg tablet 1 g PO DAILY 90 Days Qty: 90 1RF fluticasone propionate 50 mcg/actuation spray,suspension 1 spray intranasal DAILY Qty: 16 4RF ezetimibe 10 mg tablet 10 mg PO DAILY Qty: 90 1RF eszopiclone 3 mg tablet 3 mg PO BEDTIME 90 Days Qty: 90 0RF ropinirole 2 mg tablet 2 mg PO BEDTIME Qty: 90 1RF clobetasol 0.05 % cream 1 appl topical BID PRN (Reason: Itching) atorvastatin 80 mg tablet 80 mg PO DAILY omeprazole 20 mg capsule,delayed release(DR/EC) 20 mg PO DAILY@0630 aspirin 81 mg tablet,delayed release (DR/EC) 81 mg PO DAILY metronidazole 0.75 % cream 1 appl topical DAILY Rx Instructions: to face albuterol sulfate [Ventolin HFA] 90 mcg/actuation HFA aerosol inhaler 2 puff inhalation Q6H PRN (Reason: shortness of breath or wheezing) Qty: 8.5 0RF Discharge Orders: Discharge Order (Routine); Ordered 09/06/24 Ordered By: Tricia Murray Diet: Advance to usual diet Activity on Discharge: As tolerated Stand Alone Forms: Patient Portal Discharge page Print Language: Congolese Care Plan Goals: Symptoms could possibly be related to cervical radiculopathy. Talked with your primary care provider, an MRI would be a good diagnostic tool. You may use NSAIDs such as ibuprofen, Motrin, Advil. Use in moderation, take with food. Health Concerns: Chest discomfort Left arm numbness, tingling Neck pain Plan of Treatment: Follow-up with primary care provider as needed Take all medications as prescribed Assessment: See discharge summary Patient Instructions: Cervical Radiculopathy (GEN) Discharge Date/Time: 09/06/24 16:42
== END 2024-09-06 16:42 | disposition home or self-care (01) ==
LOC: HO.ED 20:32 → HO.EDOVER 21:17 → HO.IMC 09-06 00:38
PROVIDERS: Emergency Medicine; Student in an Organized Health Care Education/Training Program; Admitting Provider Student in an Organized Health Care Education/Training Program; Emergency Provider Emergency Medicine Emergency Medical Services; PCP Nurse Practitioner Family; Visit Provider Nurse Practitioner Acute Care
DX: R07.9 Chest pain, unspecified (principal); R20.0 Anesthesia of skin; M54.2 Cervicalgia; R11.0 Nausea; I45.10 Unspecified right bundle-branch block; M79.603 Pain in arm, unspecified; R42 Dizziness and giddiness; R06.02 Shortness of breath; E78.5 Hyperlipidemia, unspecified; K21.9 Gastro-esophageal reflux disease without esophagitis; M54.9 Dorsalgia, unspecified; G25.81 Restless legs syndrome; J45.20 Mild intermittent asthma, uncomplicated; Z79.899 Other long term (current) drug therapy
CPT/HCPCS: 36415; 71045; 80048; 80053; 80061; 82947; 84443; 84484; 85025; 85027; 93005; 93306; 99222; 99285; Q9957

== ENCOUNTER → 2024-09-05 13:39 | Outpatient (BNV) | payer OTHER, SELFPAY | PROVIDERS: Admitting Provider Student in an Organized Health Care Education/Training Program; Emergency Provider Emergency Medicine Emergency Medical Services; PCP Nurse Practitioner Family; Visit Provider Internal Medicine Cardiovascular Disease | DX: I45.10 Unspecified right bundle-branch block (principal) | CPT/HCPCS: 93010 ==

== ENCOUNTER → 2024-09-05 13:45 | Outpatient (BNV) | payer OTHER, SELFPAY | PROVIDERS: Emergency Provider Emergency Medicine; PCP Nurse Practitioner Family; Visit Provider Radiology Diagnostic Radiology | DX: R07.9 Chest pain, unspecified (principal) | CPT/HCPCS: 71045 ==

== ENCOUNTER → 2024-09-05 14:11 | Outpatient (BNV) | payer OTHER, SELFPAY | PROVIDERS: Emergency Provider Emergency Medicine Emergency Medical Services; PCP Nurse Practitioner Family; Visit Provider Student in an Organized Health Care Education/Training Program | DX: I45.10 Unspecified right bundle-branch block (principal) | CPT/HCPCS: 99223; 99232; 99239 ==

== ENCOUNTER 2024-09-05 19:06 | Outpatient (BNV) | payer OTHER, SELFPAY | END 2024-09-06 07:00 | PROVIDERS: Admitting Provider Student in an Organized Health Care Education/Training Program; Emergency Provider Emergency Medicine Emergency Medical Services; PCP Nurse Practitioner Family; Visit Provider Internal Medicine Cardiovascular Disease | DX: I51.7 Cardiomegaly (principal) | CPT/HCPCS: 93306 ==

== ENCOUNTER → 2024-09-05 19:06 | Outpatient (BNV) | payer OTHER, SELFPAY | PROVIDERS: Admitting Provider Student in an Organized Health Care Education/Training Program; Emergency Provider Emergency Medicine Emergency Medical Services; PCP Nurse Practitioner Family; Visit Provider Internal Medicine Cardiovascular Disease | DX: R07.9 Chest pain, unspecified (principal) | CPT/HCPCS: 99232 ==

== ENCOUNTER 2024-09-09 08:20 | Outpatient (REF) | payer OTHER, SELFPAY ==
--- OUTSIDE RECORDS SUMMARY | 2024-09-09 08:29 | XMS_ITS | Clinical Summary ---
Author Organization [facility] Address [address] [place] [address] Care Team Providers Care Community Service Technician Name Role Phone Adrian Kamara MD Primary [...] complete this [place] [phone] [facility] Care Teams Community Service Technician Relationship Specialty Start Date End Date Adrian Kamara MD [address] [place] [id number] PCP - General Family Medicine 04/25/23
[2024-09-09 10:03] LABS: MANUAL DIFF FLAG NO
[2024-09-09 10:14] LABS: Appearance Urine Clear; Color Urine Yellow; Glucose Urine UA Negative (Negative); Leukocyte Esterase Urine Negative (Negative); Nitrite Urine Negative (Negative); PH 5.5 (5.0-9.0); Specific Gravity - Urine 1.025 (1.005-1.025); Urine Blood Negative (Negative); Urine Ketones Negative (Negative); Urine Protein Negative (Neg-Trace)
[2024-09-09 10:18] LABS: Basophils Percent Auto 0.2 % (0-2); Hematocrit 41.6 % (42.0-52.0); Hemoglobin 14.4 g/dl (14.0-18.0); Imm Gran Abs Auto 0.02 X10*3/uL (0.00-0.03); Imm Gran Pct Auto 0.5 % (0.0-0.4); Lymphocytes Absolute Auto 1.4 X10*3/uL (1.2-4.9); Lymphocytes Percent Auto 32.1 % (20-40); Mean Corpuscular HGB Conc 34.6 g/dl (31.0-36.0); Mean Corpuscular Hemoglobin 31.4 pg (27.0-33.0); Mean Corpuscular Volume 90.8 fL (80.0-98.0); Mean Platelet Volume 10.6 fL (9.4-12.4); Monocytes Absolute Auto 0.5 X10*3/uL (0.1-1.2); Monocytes Percent Auto 11.9 % (2-11); Neutrophils Absolute Auto 2.4 x10*3/uL (2.0-8.3); Neutrophils Percent Auto 55.3 % (45-73); Platelet Count 214 X10*3/uL (160-400); Red Blood Count 4.58 X10*6/uL (4.60-5.80); Red Cell Distribution Width 12.3 % (11.0-16.0); White Blood Count 4.3 X10*3/uL (4.8-10.8)
[2024-09-09 11:05] LABS: Alanine Aminotransferase 35 U/L (0-40); Albumin Level 4.2 g/dL (3.5-5.0); Alkaline Phosphatase 72 U/L (39-117); Anion Gap 11 (12-20); Aspartate Amino Transferase 30 U/L (5-37); Bilirubin Total 1.7 mg/dL (0.0-1.0); Blood Urea Nitrogen 23 mg/dL (9-16); Carbon Dioxide 26 mmol/L (22-29); Chloride 107 mmol/L (96-108); Cholesterol 108 mg/dL (<200); Estimated Glomerular Filt Rate > 60; Glucose Fasting 94 mg/dL (60-99); HDL Cholesterol 47 mg/dL (>40); LDL Cholesterol Calculated 49 mg/dL (<100); Sodium 140 mmol/L (135-145); Total Protein 6.4 g/dL (6.5-8.0); Triglycerides 60 mg/dL (<150)
[2024-09-12 19:19] LABS: Testosterone, Free 76.3 pg/mL (35.0-155.0); Testosterone, Total 537 ng/dL (250-1100)
== END 2024-09-09 08:21 | disposition home or self-care (01) ==
LOC: HO.HMGCLDS 08:20
PROVIDERS: PCP Nurse Practitioner Family; Visit Provider Nurse Practitioner Family
DX: Z00.00 Encounter for general adult medical examination without abnormal findings (principal); N52.9 Male erectile dysfunction, unspecified
CPT/HCPCS: 36415; 80053; 80061; 81003; 84402; 84403; 84443; 85025

== ENCOUNTER 2024-09-20 19:33 | Outpatient (REF) | payer OTHER, SELFPAY ==
--- NOTE | ~2024-09-20 | MR_ITS ---
EXAMINATION: MR CERVICAL SPINE WITHOUT CONTRAST TECHNIQUE: Multiplanar multisequence imaging through the cervical spine was performed from the base of the skull through at least T1. INDICATION: Cervical disc disorder PRIOR: None FINDINGS: Skull Base: There is no tonsillar ectopia. Cord: There is no abnormal cord signal or hydrosyringomyelia. Marrow and end-plates: There are no marrow replacing lesions. Alignment: Vertebral body height and alignment is preserved. Soft tissues: Paraspinal soft tissues and major vascular structures are unremarkable. C2-3: There is no disc bulge, herniation, spinal stenosis, or foraminal narrowing. C3-4: There is broad-based disc bulge. There is focal extrusion in the right medial foramen and subarticular zone junction. There is no spinal stenosis. There is mild right greater than left foraminal narrowing. C4-5: There is broad-based disc bulge and small central protrusion that indents the thecal sac without causing spinal stenosis. Facet osteophytes result in mild right greater than left foraminal narrowing. C5-6: There is moderate loss of disc height and broad-based disc bulge with mild ligament flavum thickening resulting in [id number] spinal stenosis. Disc and osteophytes results in moderate to severe right and [id number] left foraminal narrowing. C6-7: Mild broad-based disc bulge and central protrusion indents the thecal sac resulting in mild spinal stenosis. Disc and osteophytes result in mild bilateral foraminal narrowing. C7-T1: There is no disc bulge, herniation, spinal stenosis, or foraminal narrowing. MR/MR cervical spine wo con IMPRESSION: C3-4: There is mild right greater than left foraminal narrowing with a small focal herniation in the right medial foramen/subarticular zone.. C4-5: There is mild right greater than left foraminal narrowing. C5-6: There is [id number] spinal stenosis with moderate to severe right and soaq-mh-chzefrob left foraminal narrowing. C6-7: There is mild spinal stenosis and mild bilateral foraminal narrowing. Electronically signed by: Augustin Henson MD 09/22/2024 10:51 AM EDT
== END 2024-09-20 19:34 | disposition home or self-care (01) ==
LOC: HO.MRI 19:33
PROVIDERS: PCP Nurse Practitioner Family; Visit Provider Nurse Practitioner Family
DX: M50.90 Cervical disc disorder, unspecified, unspecified cervical region (principal)
CPT/HCPCS: 72141

== ENCOUNTER → 2024-09-20 19:39 | Outpatient (BNV) | payer OTHER, SELFPAY | PROVIDERS: PCP Nurse Practitioner Family; Visit Provider Radiology Diagnostic Radiology | DX: M99.61 Osseous and subluxation stenosis of intervertebral foramina of cervical region (principal) | CPT/HCPCS: 72141 ==

== ENCOUNTER → 2024-10-07 09:23 | Outpatient (REF) | payer OTHER, SELFPAY ==
--- NOTE | 2024-10-07 09:25 | CA_ITS ---
Acquisition Time: 2024-10-07 09:36:24 Total Exercise Time: 00:08:30 Test Indications: PREOP Medications: ASA ATROVASTATIN Protocol: BETHANIE Max HR: 137 BPM 86% of Pred: 159 BPM Max BP: 198/70 mmHG Max Work Load: 10.1 METS Exercise stress test with exercise 8 mins 30 secs of Bethanie Protocol, achieving 86% MPHR, with reports of mild SOB, no chest pain, without any arrythmias, with normotensive response to exercise. Without EKG chnages meetingcriteria for ischemia. In recovery, breathing quickly returned to baseline. Test reviewed with Dr. Petty. Referred By: Kod[employer] Oneill Electronically Signed By: [employer] Oneill
--- OUTSIDE RECORDS SUMMARY | 2024-10-07 10:01 | XMS_ITS | Clinical Summary ---
Author Organization [facility] Address [address] [place] [address] Care Team Providers Care E Commerce Project Manager Name Role Phone Adrian Kamara MD Primary Care Provider [phone] Allergies No known active allergies Medications atorvastatin [...] 93 04/27/2023 4:20 PM EST Temperature 37.1 C (98.7 F) 04/27/2023 4:20 PM EST Respiratory Rate 12 04/25/2023 10:26 AM EST [...] complete [place] [phone] [facility] Care Teams E Commerce Project Manager Relationship Specialty Start Date End Date Adrian Kamara MD [address] [place] [id number] PCP - General Family Medicine 04/25/23
== END ==
LOC: HO.CARD 09:23
PROVIDERS: PCP Nurse Practitioner Family
DX: Z01.810 Encounter for preprocedural cardiovascular examination (principal); I45.2 Bifascicular block
CPT/HCPCS: 93017

== ENCOUNTER → 2024-10-07 09:25 | Outpatient (BNV) | payer OTHER, SELFPAY | PROVIDERS: PCP Nurse Practitioner Family | DX: R06.02 Shortness of breath (principal) | CPT/HCPCS: 93016; 93018 ==

== ENCOUNTER 2024-12-05 06:27 | Day surgery (SDC) | payer OTHER, SELFPAY ==
--- OUTSIDE RECORDS SUMMARY | 2024-11-05 14:50 | XMS_ITS | Data Portability ---
Author Organization [place] - [facility], Allergy Address [address] [address] Assessment Encounter Date Assessment Date Assessment LastModified by Organization Details LastModified Time 11/06/2023 11/06/2023 Discussed with the patient that his report is not available today from his recent MRA but we have requested this from [facility]. His chronic head pressure likely does [...] CONTRAST please use 3T MRI 2023 024 [email or web address] [facility] ([facility]), [address] [place], [address], 4 11:58:30 Medication Orders None recorded. Patient TargetsNo targets recorded. Patient Instructions Encounter Date Encounter Id Patient Instructions Last Modified By Organization Details Last Modified Time 10/02/2023 [id number] 1) Pulsatile tinnitus - potential etiologies reviewed. [...] in hearing, particularly if sudden in onset. [place] [id number] Not available 10/02/2023 15:51:57 Reason for Referral None Reported. Results Created Date Observation Date Name Description Value Unit Range Abnormal Flag Note LastModifiedBy Organization Detail LastModifiedTime 10/02/19 audio gram No observ ation record ed. BARCODE Not Available 2023 15:46:44 10/03/19 24 07/31/2023 MRI, brain + inter nal audit ory canal , w/wo contr ast No observ ation record ed. [address] [facility] [address] [place], [address], 10/08/2023 08:50:03 11/20/19 24 11/01/2023 MR, angio gram, head + neck, w/ contr ast No observ ation record ed. [address] (Imaging) [address] [place], [address], 12/12/2023 09:59:42 Result Notes None recorded. Problems Name Problem SNOMED Code Status Onset Date Resolution Date Notes Provider Name and Address Organization Details Recorded Time Nasal congestio n 44802108 Active 2017 Nasal congestio n; Note: Date Diagnosed : 8 2:22 PM (R09.81) Not Available [facility] 4 02:21:51 Chronic maxillary sinusitis 71379481 Active 2017 Chronic maxillary sinusitis ; Note: Date Diagnosed : 8 2:34 PM (J32.0) Not Available [facility] 4 02:21:39 Deviated nasal septum 168704835 Active 2017 Deviated nasal septum; Note: Date Diagnosed : 8 2:22 PM (J34.2) Not Available [facility] 4 02:20:57 Chronic ethmoidal sinusitis 35783426 Active 2017 Ethmoidal sinusitis NOS; Note: Date Diagnosed : 8 2:35 PM (J32.2) Not Available [facility] 4 02:21:09 Sensorine ural hearing loss of bilateral ears 421409541 Active 2023 HAL CHO [facility] [address] [facility],[place] [address], [place], [address] , [facility] - [facility] 4 11:26:03 Bilateral tinnitus 41737124980 02 Active 2023 JUAN SALDANA PA-C [address] [facility],[place] [address], [address] , [facility] - [facility] 4 12:06:50 Subjectiv e pulsatile tinnitus 49898523683 9104 Active 2023 JUAN SALDANA PA-C [address] [facility],[place] [address], [address] , [facility] - [facility] [place] 4 13:07:34 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 72790542021 71674 Active 2023 JUAN SALDANA PA-C [address] [facility] [address], [address] , [facility] - [facility] 4 13:08:38 Chronic daily headache 59540325995 4102 Active 2023 JUAN SALDANA PA-C [address] [facility], [place], [address] , [facility] - [facility] [place] 4 13:09:05 Lighthead edness 782785456 Active 2023 JUAN SALDANA PA-C [address] [place] [address],[place] [address], [facility] [place] [place], [address] , [facility] - [facility] [place] 4 13:09:19 Encephalo carmen 67746985 Active 2023 JUAN SALDANA PA-C [address] [place] [address],[place] [address], [facility] [place] [place], [address] , [facility] - [facility] [place] 4 09:57:53 Problem Notes None recorded. Procedures Surgical History Date Name Laterality Status Provider Name and Address Organization Details Recorded Time 4 Comp Audio with Tymps & Reflexes - 45637 & 82368 completed BRIGHT ANDRES [address] [facility],[place] [address], [place], [address], [facility] - [facility] [place] 10/02/2023 11:34:29 8 hernia repair completed Karson Crow [place] - [facility] [place] 10/02/2023 11:05:10 0 extraction of wisdom tooth completed Karson Crow [place] - [facility] [place] 10/02/2023 11:05:25 Imaging Results None recorded. Procedure Notes None recorded. Medical Equipment None Reported. Allergies Allergen ID Allergen Name Allergen Category Reaction Reaction Severity Criticality Documentation Date Start Date Code Code System Note Provider Name and Address Organization Details Recorded Time 91424 Tylenol medicatio n other Not available Not available 08/28/2023 3 RxNorm React ion: unkno wn, unspe cifie d;; Not Available [facility] 4 00:52:11 Medications Name Sig Start Date Stop Date Status Note LastModified by Organization Details LastModified Time ropinirole 1 mg tablet 2017 active Medication ID: [id number] Dur ation Value: 30 Brand Name: ropinirole Send Method: E-Prescrib ed Subs Allowed: subs OK Special Instructio n: TK 1 T PO 1 TO 3 HOURS BEFORE BEDTIME Me dicationGe nericName: ropinirole Not Available Not Available Not Available atorvastati n 10 mg tablet 2017 active Medication ID: [id number] Dur ation Value: 30 Brand Name: atorvastat in Send Method: E-Prescrib ed Subs Allowed: subs OK Special Instructio n: TK 1 T PO QD Medicat ionGeneric Name: atorvastat in Not Available Not Available Not Available Advair Diskus 250 mcg-50 mcg/dose powder for inhalation 10/01 completed Medication ID: [id number] Dur ation Value: 30 Brand Name: Advair Diskus Sen d Method: E-Prescrib ed Subs Allowed: subs OK Special Instructio n: INL 1 PUFF PO BID Medica tionGeneri cName: Advair Diskus Med ication ID: [id number] Dur ation Value: 30 Brand Name: Advair Diskus Sen d Method: E-Prescrib ed Subs Allowed: subs OK Special Instructio n: INL 1 PUFF PO BID Medica tionGeneri cName: Advair Diskus Not Available Not Available Not Available gabapentin 300 mg capsule 10/01 completed Medication ID: [id number] Dur ation Value: 90 Brand Name: gabapentin Send Method: E-Prescrib ed Subs Allowed: subs OK Special Instructio n: TK 2 CS PO TID Medica tionGeneri cName: gabapentin Medicatio n ID: [id number] Dur ation Value: 90 Brand Name: gabapentin Send Method: E-Prescrib ed Subs Allowed: subs OK Special Instructio n: TK 2 CS PO TID Medica tionGeneri cName: gabapentin Not Available Not Available Not Available montelukast 10 mg tablet 11/05 completed Medication ID: [id number] Dur ation Value: 30 Brand Name: montelukas t Send Method: E-Prescrib ed Subs Allowed: subs OK Special Instructio n: TK 1 T PO QD IN THE NICOLE Medica tionGeneri cName: montelukas t Medicati on ID: [id number] Dur ation Value: 30 Brand Name: montelukas t Send Method: E-Prescrib ed Subs Allowed: subs OK Special Instructio n: TK 1 T PO QD IN THE NICOLE Medica tionGeneri cName: montelukas t Not Available Not Available Not Available zolpidem 10 mg tablet 2017 active Medication ID: [id number] Dur ation Value: 30 Brand Name: zolpidem S end Method: E-Prescrib ed Subs Allowed: subs OK Special Instructio n: TK 1 T PO HS PRN Medica tionGeneri cName: zolpidem Not Available Not Available Not Available ProAir HFA 90 mcg/actuati on aerosol inhaler 11/05 completed Medication ID: [id number] Dur ation Value: 16 Brand Name: ProAir HFA Send Method: E-Prescrib ed Subs Allowed: subs OK Special Instructio n: INL 2 PUFFS PO Q 4 H PRN Medica tionGeneri cName: ProAir HFA Medica tion ID: [id number] Dur ation Value: 16 Brand Name: ProAir HFA Send Method: E-Prescrib ed Subs Allowed: subs OK Special Instructio n: INL 2 PUFFS PO Q 4 H PRN Medica tionGeneri cName: ProAir HFA Not Available Not Available Not Available Vitals Date Recorded Body height Body mass index (BMI) Body weight Provider Name and Address Organization Details Last Updated DateTime 11/06/2023 193.04 cm 26.8 kg/m2 26842.32 g Felicita Soni [place] - [facility] 11/06/2023 14:15:10 Social History None recorded. Functional Status None recorded. Mental Status None recorded. Family History Nothing Reported. Medical History Condition Response Asthma Y GERD/Reflux Y Past Encounters Encounter ID Performer Location Encounter Start Date Encounter Closed Date Diagnosis/Indication Diagnosis SNOMED-CT Code Diagnosis ICD10 Code Diagnosis Note [id number] JUAN SALDANA PA-C [facility] [address] [address] 10/02/2023 10:38:51 10/02/2023 12:20:12 Sensorineural hearing loss of bilateral ears 651224642 H90.3 Audiologic al evaluation results:Ri ght ear:Normal sloping to moderately -severe sensorineu ral hearing loss with conductive components at 2k and 4kHz and excellent word recognitio n.Left ear:Normal sloping to moderately -severe sensorineu ral hearing loss with excellent word recognitio n.Tympanom etry:Right Ear:Type ALeft Ear:Type A Present ipsi and contra reflexes, AU, with the exception of an absent ipsi response at 4kHz, AD. Bilateral tinnitus 04245 66403 102 H93.13 Bilateral subjective pulsatile tinnitus of ears 4895339668 775378 H93.A3 Chronic da feliz headache 6897463612 86673 R51.9 Lightheadedness 24472057 8 R42 [id number] JUAN SALDANA PA-C [facility] [address] [address] 11/06/2023 14:08:32 11/06/2023 15:16:06 Bilateral subjective pulsatile tinnitus of ears 9967278914 117264 H93.A3 Chronic da feliz headache 2197155148 06970 R51.9 Health Concerns Section Related Observation LastModified by Organization Detai ls LastModified Time None Recorded Concern Status LastModified by Organization Details LastModified Time None Recorded Advance Directives Directive None Recorded Payers Insurance Date Sequence Insurance Name Policy Number Policy [place] Covered Member ID [place] Member ID Guarantor Name 11/03/2023 1 [employer] [place] [id number] Jackeline Villagomez [id number] Mitchell Villagomez Notes Date Note Type Note [...] aneurysm. That was 6 weeks ago at [facility]. Had a sinus scan at PCP's office this spring that showed the right sinus was small. The lightheadedness is much better. Pressure at the right voodoo and the top of the head on [...] not a headache. JUAN SALDANA PA-C [address] [facility],[address], [address], [place] - [facility] 10/02/2023 15:52:23 11/06/2023 text/html 58 year old male presents for re-evaluation. He is status post MRA at [facility]. He reports that his balance is back [...] gym without incident. MAC HDZ MD [address] [facility],[address], [address], [place] - [facility] 11/08/2023 17:05:48
--- OUTSIDE RECORDS SUMMARY | 2024-11-05 14:50 | XMS_ITS | Patient Health Record ---
Author Organization [facility] Address [address] [place] [address] Care Team Providers Care Chimney Sweeper Name Role Phone Sathya Noguera MD Primary Care Provider Moises Gamez [phone] Allergies Allergen (clinical drug ingredient) Drug/Non Drug Allergy documented on EMR Reaction Allergy Type Onset Date Status acetaminophen Tylenol Unknown Drug Allergy Act vinicius Reason For Referral No Information Medications Medication SIG (Take, Route, Frequency, Duration) Notes Start Date End Date Status Serevent Diskus Acti ve Albuterol Active Carbidopa-Levodopa 10mg Active LORazepam 1mg QHS Active 16.2 MG 1 tablet Orally TID as needed for gas or abdominal discomfort for 30 day(s) 07/24/2013 04/16/2024 Active Citalopram & Diet Manage Prod Active MoviPrep 100 GM as directed Orally a s directed for 1 dose 07/24/2013 Active Problems Problem Type SNOMED Code ICD Code Onset Dates Problem Status W/U Status Risk Notes Problem Irritable bowel syndrome (564.1) Active confirmed Problem Diarrhea (00104625) Diarrhea (787.91) Active confirmed Problem Colon cancer screening (V76.51) Active confirmed Problem Irritable bowel (15549864) Irritable bowel (564.1) Active confirmed Problem Gas (60612149) Gas (787.3) Active confirmed Plan Of Treatment Pending Test Test Name Order Date ENDOMYSIAL IGA 12/07/2011 TRANSGLUTAMINASE AB IGA 12/07/2011 TRANSGLUTAMINASE AB IGG 12/07/2011 Future Test Test Name Order Date COLONOSCOPY 07/24/2013 Insurance Providers Payer Name Payer Address Payer Phone Subscriber Number Group Number Insured Name Patient Relationship to Insured Coverage Start Date Coverage End Date [employer] [place] [address] [address] [place] [address] [id number] KENY CULP Self - patient is the insured Medical (General) History Medical History History ICD Code IBS-negative laboratories for celiac dis ease in 2011 Asthma Allergies Headaches/migraines Denies NM,DM,CVA,renal disease Sinusitis Restless leg syndrome Insomnia Surgical History Surgery Date(Month/Year) wisdom teeth extraction
--- OUTSIDE RECORDS SUMMARY | 2024-11-05 14:50 | XMS_ITS ---
Author Name [facility] Organization Unknown History of Medication Use Medication Directions Dispensed Refills Start Date End Date Stat us trimethoprim-polymyxi n b (POLYTRIM) ophthalmic solution Administer 1 drop to the right eye every 4 (four) hours. 04/25/2023 active eszopiclone (LUNESTA) 3 MG tablet 02/21/2023 active atorvastatin (LIPITOR) 80 MG tablet Take 80 mg by mouth nightly. 02/19/2023 active Problems Problem Status Onset Date Problem Type Date of Resolution Source Acute conjunctivitis of both eyes, unspecified acute conjunctivitis type active [facility] En[facility]ters Encounter Type Encounter Reason Primary Diagnosis Location Date Ambulatory Unspecified acute conjunctivitis, bilateral Unspecified acute conjunctivitis, bilateral [facility] 04/27/2023 Ambulatory Unspecified conjunctivitis Unspecified conjunctivitis [facility] 04/25/2023 Care Team Organization Name Specialty Phone Email Start Date End Da te [facility] 05/06/2023 [facility]ly [facility] 05/06/2023 07/02/2024 [facility] Primary Care 04/25/2023 025 [place] [facility] Primary Care 04/25/2023 024
--- OUTSIDE RECORDS SUMMARY | 2024-11-05 14:50 | XMS_ITS | Clinical Summary ---
Author Organization [facility] Address [address] [place], [place] [address] Care Team Providers Care Cutter Operator Brick Name Role Phone TanacarlitoAdrian khan J Primary Care Provider [phone] Allergies Active Allergy Reactions Criticality Noted Date [...] (1 of 2) 2013 Influenza Vaccine (#1) 2024 RSV Adult > 60+ Yrs or Pregn [...] age to complete this topic Care Teams Cutter Operator Brick Relationship Specialty Start Date End Date Adrian Kamara: [phone] [facility] [place] [address] PCP - General Family Medicine 08/26/20
--- OUTSIDE RECORDS SUMMARY | 2024-11-05 14:50 | XMS_ITS | Clinical Summary ---
Author Organization [facility] Address [address] [place] [address] Care Team Providers Care Steam Heating Installer Name Role Phone Adrian Kamara MD Primary [...] complete [place] [phone] [facility] Care Teams Steam Heating Installer Relationship Specialty Start Date End Date Adrian Kamara MD [address] [place] [address] PCP - General Family Medicine 04/25/23
[2024-12-03 09:38] VITALS: BMI 28.1
--- NOTE | 2024-12-03 13:21 | P.CONAN_ITS ---
Documented by User: Aleida Huddleston NP 12/03/24 13:26 HPI - Anesthesia Eval Consult details Narrative: 59yo F for Colonoscopy with possible Polypectomy [facility] Admit 08/2024 with chest pain - negative w/u with EKG, stress, echo - eval by cardiology considers radiculopathy PMFSH Active Problems Active Problems: All Active Problems Cervical back pain with evidence of disc disease (Acute) Erectile dysfunction (Acute) Carotid stenosis, asymptomatic (Acute) Hyperkalemia (Acute) Recurrent UTI (Acute) Elevated bilirubin (Acute) Fatty liver (Acute) Elevated liver enzymes (Acute) Vertigo (Acute) Elevated coronary artery calcium score (Acute) Shortness of breath (Acute) Pulsatile tinnitus (Acute) Dizziness (Acute) Loss of hearing (Acute) Tinnitus (Acute) Colon cancer screening (Acute) Upper respiratory tract infection (Acute) Bronchitis (Acute) Elevated PSA (Acute) Elevated BP without diagnosis of hypertension (Acute) Screening PSA (prostate specific antigen) (Acute) Physical exam (Acute) Back pain (Acute) Sinusitis, acute (Acute) Conjunctivitis (Acute) Blood typing encounter (Acute) Screening PSA (prostate specific antigen) (Acute) Physical exam (Acute) Pruritic intertrigo (Acute) Restless leg syndrome (Acute) IBS (irritable bowel syndrome) (Acute) Dyslipidemia (Acute) Mild intermittent asthma in adult without complication (Acute) URI (upper respiratory infection) (Acute) Past Medical History Medical History Sinusitis, acute Pruritic intertrigo Restless leg syndrome IBS (irritable bowel syndrome) Dyslipidemia Mild intermittent asthma in adult without complication Family History Family History Father Cancer of prostate Cancer of thyroid Mother Mitral valve prolapse Skin cancer Breast cancer SVT (supraventricular tachycardia) Sister Atrial septal aneurysm Surgical History Surgical History Hx of colonoscopy History of inguinal hernia repair History of lipoma Social History Social History Household Members: Spouse Housing: House Are you a primary healthcare educator to a significant other at home: No Do you presently have visiting nurse or other home services: No Alcohol intake: current Alcohol intake frequency: holidays/special occasions only Patient Tobacco Use Status: Never used Tobacco e-Cigarette/Vaping Use: Never Used Second Hand Smoke Exposure: No Use of substances other than those prescribed or required for medical reasons: No Substance Use Type: Marijuana Have you been hit, kicked, punched, or otherwise hurt by someone within the past year? If so, by whom?: No Are you DNR?: No Advance Directives: No Advance Directives Information Provided: Yes Advance Directives on File: No Poor oral hygiene: No service: No Current occupational status: employed Current occupation: [employer] Current occupational exposures/hazards: No Cognitive needs: No Hearing needs: No Vision needs: No Meds Allergies Allergy/AdvReac Type Severity Reaction Status Date / Time acetaminophen (From TYLENOL) Allergy Unknown FEELS LIKE Verified 09/05/24 13:42 HE IS GOING TO JUMP OUT OF MY SKIN pollen Allergy Unknown asthma, Uncoded 07/16/24 15:59 sinus infection Home Medications ?Medication ?Instructions ?Recorded ?Confirmed ?Last Taken ?Type aspirin 81 mg tablet,delayed 81 mg PO DAILY 08/02/23 0 12/05/24 09/05/24 History release metronidazole 0.75 % topical cream 1 appl topical PEGGY Y 03/25/24 12/05/24 09/05/24 History clobetasol 0.05 % topical cream 1 appl topical BID PRN Itching 09/05/24 12/05/24 09/05/24 History omeprazole 20 mg capsule,delayed 20 mg PO DAILY@0630 0 09/05/24 12/05/24 12/05/24 History release Exam Height,Weight and Vital Signs: Height 6 ft 4 in Weight 104.78 kg Pertinent Lab Results Pertinent Lab Results: Laboratory Tests 09/09/24 08:30 WBC 4.3 L Hgb 14.4 Hct 41.6 L Plt Count 214 Sodium 140 Potassium 4.0 Chloride 107 Carbon Dioxide 26 BUN 23 H Creatinine 0.90 Narrative Narrative: EKG 2024 Vent. Rate : 76 BPM Atrial Rate : 76 BPM P-R Int : 184 ms QRS Dur : 146 ms QT Int : 414 ms P-R-T Axes : 48 80 8 degrees QTcB Int : 465 ms Normal sinus rhythm Right bundle branch block Abnormal ECG When compared with ECG of 28-Jul-2022 12:57, Right bundle branch block has replaced Non-specific intra-ventricular conduction block ECHO 2024 Conclusions: - Normal left ventricular size and systolic function. There is mildly increased left ventricular wall thickness. The visually estimated ejection fraction is between 60-65%. - Normal right ventricular cavity size and systolic function. Exercise Stress 2024 Protocol: THOMAS Max HR: 137 BPM 86% of Pred: 159 BPM Max BP: 198/70 mmHG Max Work Load: 10.1 METS Exercise stress test with exercise 8 mins 30 secs of Thomas Protocol, achieving 86% MPHR, with reports of mild SOB, no chest pain, without any arrythmias, with normotensive response to exercise. Without EKG chnages meetingcriteria for ischemia. In recovery, breathing quickly returned to baseline. Test reviewed with Dr. Petty. Assessment and Plan Assessment Anesthesia Assessment: Chart Reviewed Documented by User: Patricio Christie MD 12/05/24 07:21 [facility] Past Medical History Medical History Sinusitis, acute Pruritic intertrigo Restless leg syndrome IBS (irritable bowel syndrome) Dyslipidemia Mild intermittent asthma in adult without complication Family History Family History Father Cancer of prostate Cancer of thyroid Mother Mitral valve prolapse Skin cancer Breast cancer SVT (supraventricular tachycardia) Sister Atrial septal aneurysm Family history of problems with anesthesia: No Surgical History Surgical History Hx of colonoscopy History of inguinal hernia repair History of lipoma History of Problems with Anesthesia: No Social History Social History Household Members: Spouse Housing: House Are you a primary healthcare educator to a significant other at home: No Do you presently have visiting nurse or other home services: No Alcohol intake: current Alcohol intake frequency: holidays/special occasions only Patient Tobacco Use Status: Never used Tobacco e-Cigarette/Vaping Use: Never Used Second Hand Smoke Exposure: No Use of substances other than those prescribed or required for medical reasons: No Substance Use Type: Marijuana Have you been hit, kicked, punched, or otherwise hurt by someone within the past year? If so, by whom?: No Are you DNR?: No Advance Directives: No Advance Directives Information Provided: Yes Advance Directives on File: No Poor oral hygiene: No service: No Current occupational status: employed Current occupation: [employer] Current occupational exposures/hazards: No Cognitive needs: No Hearing needs: No Vision needs: No Meds Allergies Allergy/AdvReac Type Severity Reaction Status Date / Time acetaminophen (From TYLENOL) Allergy Unknown FEELS LIKE Verified 09/05/24 13:42 HE IS GOING TO JUMP OUT OF MY SKIN pollen Allergy Unknown asthma, Uncoded 07/16/24 15:59 sinus infection Home Medications ?Medication ?Instructions ?Recorded ?Confirmed ?Last Taken ?Type aspirin 81 mg tablet,delayed 81 mg PO DAILY 08/02/23 0 12/05/24 09/05/24 History release metronidazole 0.75 % topical cream 1 appl topical PEGGY Y 03/25/24 12/05/24 09/05/24 History clobetasol 0.05 % topical cream 1 appl topical BID PRN Itching 09/05/24 12/05/24 09/05/24 History omeprazole 20 mg capsule,delayed 20 mg PO DAILY@0630 0 09/05/24 12/05/24 12/05/24 History release Exam Airway Mallampati Class: I TM Dist: >3cm Neck ROM: Full Loose/Missing/Broken Teeth: No Heart: ok Lungs: ok Assessment and Plan Assessment Anesthesia Assessment: Anesthesia Plan Discussed Final Anesthetic Review Family History of Problems with Anesthesia: No History of Problems with Anesthesia: No NPO: Yes ASA Class: II Final Preanesthetic Review: No Changes in Pt Med Stat, Meds/Allgs Chart Reviewed, Consent Obtained/Reviewed and Anes Risks/Benef Reviewed Patient Risk: Low Procedure Risk: Low Anesthetic Plan Anesthetic Plan: MAC: and Agree w/ Assess. and Plan Disposition: Standard PACU
[2024-12-05 06:46] VITALS: BP 119/71; PULSE 86; RESP 16; TEMP 37.2; O2SAT 96
[2024-12-05] MEDS: Lactated Ringers 1,000 ML 100 ML IVCONT (06:53)
--- NOTE | 2024-12-05 07:10 | MHC.SHP ---
Pre-Procedural Eval Section A - 24 Hr Update-Section A only Date of Service: 12/05/24 Section B - Complete if H&P > 30 days Chief Complaint: screening Details of Present Illness: Had a flat polyp in the cecum in 2019, was told to have another colonoscopy in 3 years Relevant Family History (Specify if Yes): No Relevant Social History: None Present Medications: see Short Stay Collaborative assessment Medical History: Significant History (Asymptomatic carotid stenosis, chronic back pain, indurated PSA, IBS, asthma) Allergies: Allergies Allergy/AdvReac Type Severity Reaction Status Date / Time acetaminophen (From TYLENOL) Allergy Unknown FEELS LIKE Verified 09/05/24 13:42 HE IS GOING TO JUMP OUT OF MY SKIN pollen Allergy Unknown asthma, Uncoded 07/16/24 15:59 sinus infection Review of Systems Sugical H&P ROS: Negative: Constitution, Cardiovascular, Respiratory and Gastrointestinal Exam Surgical H&P Exam: Normal: Heart, Normal: Lungs and Normal: Abdomen Plan Diagnosis/Plan: Unchanged I have reviewed the history and physical and performed a pertinent physical examination on my patient. No changes have occurred unless specified. Time Spent With Patient Time: Total time managing care of this patient today ____ minutes.
--- NOTE | 2024-12-05 07:53 | W.PM.OPN ---
Operative Note Operative Note Date of Service: 12/05/24 Narrative: Preop diagnosis: History of adenomatous polyp Postop diagnosis: Normal colonoscopy findings Procedure: Colonoscopy Surgeon: Mack Nettles MD The patient is a 59-year-old male who had a colonoscopy with Dr. Dykes in 2019 he was noted to have a flat polyp in the cecum which was removed. This was a tubular adenoma. He was told to have another colonoscopy in 3 years. He understands the technique of the planned procedure as well as the risks, benefits, and alternatives The patient was brought to the operating room and placed in left lateral decubitus position under monitored anesthesia care. A surgical time-out was done. A full digital rectal exam was done and this did not reveal any significant anal lesions. The tip of the Olympus colonoscope was gently introduced through the anal orifice advanced with insufflation all the way to the cecum. The cecum was intubated. The cecum was identified by visualization of the ileocecal valve as well as the appendiceal orifice. The cecal mucosa was unremarkable. The scope was gradually withdrawn with careful examination of the entire colonic mucosa being done with scope withdrawal. The patient had adequate bowel prep so it was unlikely that any lesion may have been missed. The rectum was reached and there were no lesions seen. The anal canal was unremarkable. The scope was then withdrawn completely with desufflation. The patient tolerated the procedure well. There were no immediate complications. He is at average risk for colon cancer. In view of this normal colonoscopy findings, his next colonoscopy may be in the next 10 years.
[2024-12-05 07:54] VITALS: BP 115/69; PULSE 75; RESP 18; TEMP 36.6; O2SAT 95
[2024-12-05 08:00] VITALS: BP 116/61; PULSE 67; RESP 18; TEMP 36.6; O2SAT 97
[2024-12-05 08:15] VITALS: BP 128/78; PULSE 70; RESP 18; O2SAT 99
[2024-12-05 08:24] VITALS: BP 125/71; PULSE 73; RESP 18; TEMP 36.3; O2SAT 98
== END 2024-12-05 08:54 | disposition home or self-care (01) ==
PROVIDERS: PCP Nurse Practitioner Family; Visit Provider Surgery
PROC: 0DBE8ZZ Excision of Large Intestine, Via Natural or Artificial Opening Endoscopic (ICD-10-PCS; CPT 45378; principal; 2024-12-05 07:30)
DX: Z12.11 Encounter for screening for malignant neoplasm of colon (principal); Z86.0101 Personal history of adenomatous and serrated colon polyps; K58.9 Irritable bowel syndrome, unspecified; E78.5 Hyperlipidemia, unspecified; J45.20 Mild intermittent asthma, uncomplicated; J01.90 Acute sinusitis, unspecified; G25.81 Restless legs syndrome; L30.4 Erythema intertrigo; Z88.8 Allergy status to other drugs, medicaments and biological substances; Z98.890 Other specified postprocedural states
CPT/HCPCS: 45378; J2003; J2704

== ENCOUNTER → 2024-12-05 06:27 | Outpatient (BNV) | payer OTHER, SELFPAY | PROVIDERS: PCP Nurse Practitioner Family; Visit Provider Surgery | DX: Z12.11 Encounter for screening for malignant neoplasm of colon (principal); Z86.0109 Personal history of other colon polyps | CPT/HCPCS: 45378 ==